=== PATIENT | male | born 1950 | race Caucasian/White ===

== ENCOUNTER → 2019-04-17 10:16 | Outpatient (BNVA) | payer MEDICARE, OTHER, SELFPAY | PROVIDERS: Family Provider Nurse Practitioner; PCP Nurse Practitioner; Visit Provider Internal Medicine Nephrology | DX: Z94.0 Kidney transplant status (principal) | CPT/HCPCS: 80053; 80197; 81003; 82465; 82550; 82570; 83735; 84100; 84156; 84550; 85025 ==

== ENCOUNTER → 2019-05-19 08:08 | Outpatient (BNVA) | payer MEDICARE, OTHER, SELFPAY | PROVIDERS: Family Provider Nurse Practitioner; PCP Nurse Practitioner; Visit Provider Internal Medicine Nephrology | DX: Z94.0 Kidney transplant status (principal); Z79.899 Other long term (current) drug therapy | CPT/HCPCS: 80053; 80197; 81003; 82465; 82550; 82570; 83735; 84100; 84156; 84550; 85025 ==

== ENCOUNTER 2019-05-29 09:00 | Emergency (ER) | payer MEDICARE, OTHER, SELFPAY ==
[2019-05-29 09:03] VITALS: BP 142/81; PULSE 83; RESP 18; TEMP 37.1; O2SAT 97; BMI 30.5
--- NOTE | 2019-05-29 09:13 | XR_ITS ---
WS: [id number] XR chest 1V portable [id number] REASON FOR EXAM: cough/congestion FINDINGS: Comparisons were made to November 20, 2018. The subclavian artery on the right shows a stent similar in position to the previous exam. The heart and mediastinal interfaces were normal. There is granulomas changes well calcified and both perihilar areas. There is chronic low-grade inter stitial changes in the lower lungs. XR/XR chest 1V portable [id number] IMPRESSION: Interstitial changes bilaterally with granulomas Stent is seen in the right subclavian artery.
--- NOTE | 2019-05-29 09:13 | USCV_ITS ---
James Rae Age: 68 Gender: M : 1950 Exam Date: 05/29/2019 09:50 Ordering Phys: Angela Guillermo Technologist: Laila Luis [place] [facility] [place]: in the upper right extremity that has been closed. New onset of pain and swelling. PROCEDURES: 2-D, Doppler and augmentation imaging is submitted of the right upper extremity venous system extending from the right jugular vein through the radial and ulnar veins. The cephalic and basilic vein are also included. FINDINGS: The right jugular vein, brachial vein, radial vein, and ulnar vein appears free from thrombus. There is evidence of thrombus in the right subclavian vein, axillary vein, and basilic vein. Echogenic material was noted in the lumen of the axillary and subclavian veins. The basilic vein was found to be partially compressible with echogenic material in the lumen. No spontaneous flow was noted in the brachial or axillary vein minimal spontaneous flow was noted in the basilic vein CONCLUSIONS Features of thrombosis involving the right subclavian and axillary vein, causing near total occlusion. Features of thrombosis involving the basilic vein, causing subtotal occlusion. Other identifiable veins, as mentioned above, where found to have no evidence of thrombosis. No similar previous studies available for comparison. Dr Prince Messer MD [facility] (Electronically Signed) Final Date: 29 May 2019 13:32 S
--- NOTE | 2019-05-29 09:14 | ED_ITS ---
Documented by User: BRITTANI Fofana 05/29/19 11:12 HPI - Extremity Problem General: Chief complaint: Extremity Problem,Nontraumatic Stated complaint: right arm pain Time Seen by Provider: 05/29/19 09:03 Source: patient Mode of arrival: ambulatory Limitations: no limitations History of Present Illness: HPI Narrative: Patient is a 68-year-old male who presents to ED today with complaints of right arm pain over the past 2 to 3 days. 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 Patient reports pain to the upper arm that seems to radiate into proximally close to his chest. He denies actual chest pains. Denies SOB. He feels like arm is swollen when compared to his left. Has not noticed any coolness or pallor to the extremity. Denies numbness, tingling, loss of sensation. MD Complaint: extremity pain Onset (ago): day(s) Pain Consistency: constant Location: right and upper extremity Quality: aching Radiation: proximal Relieving factors: nothing Exacerbating factors: palpation Associated symptoms: Reports no associated symptoms; Deny chest pain or fever(s) Review of Systems Const: Denies: fever or chills Eyes: Denies: change in vision or blurry vision Card: Denies: chest pain, palpitations, irregular heart rhythm, edema, swelling of feet/ankles, lightheadedness, syncope, pre-syncope, shortness of breath on exertion, shortness of breath when lying down, leg pain with exertion or bluish discoloration of hands/feet Resp: Denies: shortness of breath, productive cough, non-productive cough, pain on inspiration, coughing up blood or chest congestion GI: Denies: abdominal pain, nausea or vomiting Musc: Reports: extremity pain and extremity swelling; Denies: neck pain or back pain Skin/Breast: Denies: changes in skin color Neuro: Denies: numbness in extremities or changes in sensation PFSH ED PFSH: Social History Smoking and tobacco status: never smoked Physical Exam Const: COMMON NORMALS: no apparent distress, average body habitus, oriented x3, no limitations, healthy appearing, alert and well nourished Resp: COMMON NORMALS: normal respiratory effort and clear to auscultation bilaterally AUSCULTATION: clear to auscultation bilaterally Cardio: COMMON NORMALS: regular rate and regular rhythm RATE: regular rate RHYTHM: regular rhythm Extremity: OTHER: Patient with previous scars to his right upper extremity from previous dialysis fistulas. He is significantly tender to his right upper arm. There seems to be some mild swelling when compared to the left. No erythema or warmth noted. Pulses intact distally. Cap refill equal bilaterally. No pallor/coolness to the extremity noted. Neuro: COMMON NORMALS: oriented x3 SENSORIUM/ORIENTATION: Yes alert Skin: COMMON NORMALS: no rashes or lesions noted GENERAL SKIN EXAM: no rashes or lesions noted Course Vital Signs: Vital signs: Vital Signs Temperature 98.7 F 05/29/19 09:03 Pulse Rate 74 05/29/19 11:10 Respiratory Rate 16 05/29/19 11:10 Blood Pressure 132/73 05/29/19 11:10 Pulse Oximetry 98 05/29/19 11:10 MDM - Extremity (Nontraumatic) MDM Narrative: Medical decision making narrative: Reviewed case with Dr. Salomon who recommends placing pt on Eliquis and follow up with PCP. Lab Data: Labs: Lab Results 05/29/19 05/29/19 05/29/19 Range/Units 09:44 09:44 09:44 WBC 10.9 H (4.0-10.0) 10^3/ uL RBC 5.13 (4.1-5.3) 10^6/u L Hgb 15.5 (11.7-16.6) g/dL Hct 46.4 (42.0-52.0) % MCV 90.4 (80-94) fL MCH 30.2 (28.0-34.0) pg MCHC 33.4 (30.0-36.0) g/dL RDW 13.7 (12.1-15.1) % Plt Count 273 (130-400) 10^3/c mm MPV 10.0 (7.4-10.4) fL Neut % (Auto) 70.4 % Lymph % (Auto) 12.0 % Stanton % (Auto) 14.0 % Eos % (Auto) 2.3 % Baso % (Auto) 0.7 % Neut # (Auto) 7.7 (1.8-7.7) 10^3/u L Lymph # (Auto) 1.3 (0.8-4.8) 10^3/u L Stanton # (Auto) 1.5 H (0.2-0.9) 10^3/u L Eos # (Auto) 0.3 (0.0-0.8) 10^3/u L Baso # (Auto) 0.1 (0.0-0.1) 10^3/u L Nucleated RBC % (a uto) 0 % Nucleated RBCs # 0.0 /100WBC PT 14.00 H (10.5-13.3) SECO NDS INR 1.05 (0.8-1.2) APTT 33.9 (23.9-36.7) SECO NDS Sodium 135 L (136-145) mmol/L Potassium 4.7 (3.5-5.1) mmol/L Chloride 99 (98-107) mmol/L Carbon Dioxide 21 L (22-29) mmol/L Anion Gap 19.7 H (5-19) BUN 19 (8-23) mg/dL Creatinine 1.2 (0.7-1.2) mg/dL GFR Calculation 60.6 L (90-130) mL/min Glucose 132 H (65-115) mg/dL Calcium 10.6 H (8.5-10.5) mg/dL Total Bilirubin 0.8 (0.15-1.2) mg/dL AST 12 (0-40) U/L ALT 8 (0-41) U/L Alkaline Phosphata se 91 (40-130) IU/L Troponin T Gen 5 n g/L (0-15) ng/mL Total Protein 8.1 (6.6-8.7) g/dL Albumin 4.0 (3.5-5.2) g/dL Globulin 4.1 (1.3-4.6) g/dL 05/29/19 Range/Units 09:44 WBC (4.0-10.0) 10^3/ uL RBC (4.1-5.3) 10^6/u L Hgb (11.7-16.6) g/dL Hct (42.0-52.0) % MCV (80-94) fL MCH (28.0-34.0) pg MCHC (30.0-36.0) g/dL RDW (12.1-15.1) % Plt Count (130-400) 10^3/c mm MPV (7.4-10.4) fL Neut % (Auto) % Lymph % (Auto) % Stanton % (Auto) % Eos % (Auto) % Baso % (Auto) % Neut # (Auto) (1.8-7.7) 10^3/u L Lymph # (Auto) (0.8-4.8) 10^3/u L Stanton # (Auto) (0.2-0.9) 10^3/u L Eos # (Auto) (0.0-0.8) 10^3/u L Baso # (Auto) (0.0-0.1) 10^3/u L Nucleated RBC % (a uto) % Nucleated RBCs # /100WBC PT (10.5-13.3) SECO NDS INR (0.8-1.2) APTT (23.9-36.7) SECO NDS Sodium (136-145) mmol/L Potassium (3.5-5.1) mmol/L Chloride (98-107) mmol/L Carbon Dioxide (22-29) mmol/L Anion Gap (5-19) BUN (8-23) mg/dL Creatinine (0.7-1.2) mg/dL GFR Calculation (90-130) mL/min Glucose (65-115) mg/dL Calcium (8.5-10.5) mg/dL Total Bilirubin (0.15-1.2) mg/dL AST (0-40) U/L ALT (0-41) U/L Alkaline Phosphata se (40-130) IU/L Troponin T Gen 5 n g/L 14 (0-15) ng/mL Total Protein (6.6-8.7) g/dL Albumin (3.5-5.2) g/dL Globulin (1.3-4.6) g/dL Imaging Data^: CXR: Radiologist's impression: [address] [address] XRay Report Signed Patient: James Rae Unit #: [id number] : 1950 Age/Sex: 68 / M ADM Date: 05/29/19 Loc: ER Room/Bed: Attending Dr: Ordering Provider/Ordering MD: Angela Guillermo Date of Service: 05/29/19 Procedure(s): XR chest 1V portable [id number] Accession Number(s): [id number] Report Number: [id number] WS: [id number] XR chest 1V portable [id number] REASON FOR EXAM: cough/congestion FINDINGS: Comparisons were made to November 20, 2018. The subclavian artery on the right shows a stent similar in position to the previous exam. The heart and mediastinal interfaces were normal. There is granulomas changes well calcified and both perihilar areas. There is chronic low-grade interstitial changes in the lower lungs. XR/XR chest 1V portable [id number] IMPRESSION: Interstitial changes bilaterally with granulomas Stent is seen in the right subclavian artery. Dictated By: Carlos Pelayo DO Signed By: Carlos Pelayo DO Signed Date/Time: 05/29/19934 DD/ 3 US arterial R UE: My impression: no arterial occulsion noted in any vessel US venous R UE: My impression: There is evidence of thrombus in the right subclavian vein, axillary vein, and basilic vein. EKG Data^: EKG 1: EKG interpretation date: 05/29/19 EKG interpretation time: 09:46 Interpretation: Sinus rhythm Rate [address] elevation or depression noted Reviewed and signed by Dr. Salomon Discharge Plan Discharge Patient Disposition: Home, Self-Care Clinical Impression: Deep venous thrombosis of upper extremity Qualifiers: Affected thrombotic vein of extremity: axillary Chronicity: acute Laterality: right Qualified Code(s): I82.A11 - Acute embolism and thrombosis of right axillary vein Acute subclavian vein thrombosis Qualifiers: Laterality: right Qualified Code(s): I82.B11 - Acute embolism and thrombosis of right subclavian vein Condition: Stable Prescriptions: New Eliquis DVT-PE Treat 30D Start 5 mg (74 tabs) tablets,dose pack See Rx Instructions .ROUTE .COMPLEX Qty: 74 RF: 0 hydrocodone-acetaminophen 5-325 mg tablet 1 tab PO Q4H PRN (Reason: pain) Qty: 20 RF: 0 Discharge Orders: Discharge Order (Routine); Ordered 05/29/19 Ordered By: Angela Guillermo Referrals: Juarez Abdi, SENIOR PROPERTY ACCOUNTANT-C [Primary Care Provider] - Activity Restrictions/Additional Instructions: Please follow up with primary care in the next 1 to 2 weeks for reevaluation. You need to return to the emergency department immediately for any development of chest pain, shortness of breath, shortness of breath upon exertion, passing out episodes, or any other concerns you may have. Discharge Date/Time: 05/29/19 11:10 Coding Level of Care Code ED Gis Engineer for Chg Fwd Exam Expanded Problem Focused Documented by User: Jerry Salomon MD 05/29/19 12:07 HPI - Extremity Problem General: Chief complaint: Extremity Problem,Nontraumatic Stated complaint: right arm pain Time Seen by Provider: 05/29/19 09:03 [facility] ED PFSH: Social History Smoking and tobacco status: never smoked Course Vital Signs: Vital signs: Vital Signs Temperature 98.7 F 05/29/19 09:03 Pulse Rate 74 05/29/19 11:10 Respiratory Rate 16 05/29/19 11:10 Blood Pressure 132/73 05/29/19 11:10 Pulse Oximetry 98 05/29/19 11:10 MDM - Extremity (Nontraumatic) MDM Narrative: Medical decision making narrative: Patient presents here with arm pain. Patient was found to have a DVT in his right upper extremity. I reviewed this case with the midlevel and patient has no symptoms of pulmonary embolism. Plan is to place him on anticoagulant and follow-up closely with his PCP and return if worsening. Lab Data: Labs: Lab Results 05/29/19 05/29/19 05/29/19 Range/Units 09:44 09:44 09:44 WBC 10.9 H (4.0-10.0) 10^3/ uL RBC 5.13 (4.1-5.3) 10^6/u L Hgb 15.5 (11.7-16.6) g/dL Hct 46.4 (42.0-52.0) % MCV 90.4 (80-94) fL MCH 30.2 (28.0-34.0) pg MCHC 33.4 (30.0-36.0) g/dL RDW 13.7 (12.1-15.1) % Plt Count 273 (130-400) 10^3/c mm MPV 10.0 (7.4-10.4) fL Neut % (Auto) 70.4 % Lymph % (Auto) 12.0 % Stanton % (Auto) 14.0 % Eos % (Auto) 2.3 % Baso % (Auto) 0.7 % Neut # (Auto) 7.7 (1.8-7.7) 10^3/u L Lymph # (Auto) 1.3 (0.8-4.8) 10^3/u L Stanton # (Auto) 1.5 H (0.2-0.9) 10^3/u L Eos # (Auto) 0.3 (0.0-0.8) 10^3/u L Baso # (Auto) 0.1 (0.0-0.1) 10^3/u L Nucleated RBC % (a uto) 0 % Nucleated RBCs # 0.0 /100WBC PT 14.00 H (10.5-13.3) SECO NDS INR 1.05 (0.8-1.2) APTT 33.9 (23.9-36.7) SECO NDS Sodium 135 L (136-145) mmol/L Potassium 4.7 (3.5-5.1) mmol/L Chloride 99 (98-107) mmol/L Carbon Dioxide 21 L (22-29) mmol/L Anion Gap 19.7 H (5-19) BUN 19 (8-23) mg/dL Creatinine 1.2 (0.7-1.2) mg/dL GFR Calculation 60.6 L (90-130) mL/min Glucose 132 H (65-115) mg/dL Calcium 10.6 H (8.5-10.5) mg/dL Total Bilirubin 0.8 (0.15-1.2) mg/dL AST 12 (0-40) U/L ALT 8 (0-41) U/L Alkaline Phosphata se 91 (40-130) IU/L Troponin T Gen 5 n g/L (0-15) ng/mL Total Protein 8.1 (6.6-8.7) g/dL Albumin 4.0 (3.5-5.2) g/dL Globulin 4.1 (1.3-4.6) g/dL 05/29/19 Range/Units 09:44 WBC (4.0-10.0) 10^3/ uL RBC (4.1-5.3) 10^6/u L Hgb (11.7-16.6) g/dL Hct (42.0-52.0) % MCV (80-94) fL MCH (28.0-34.0) pg MCHC (30.0-36.0) g/dL RDW (12.1-15.1) % Plt Count (130-400) 10^3/c mm MPV (7.4-10.4) fL Neut % (Auto) % Lymph % (Auto) % Stanton % (Auto) % Eos % (Auto) % Baso % (Auto) % Neut # (Auto) (1.8-7.7) 10^3/u L Lymph # (Auto) (0.8-4.8) 10^3/u L Stanton # (Auto) (0.2-0.9) 10^3/u L Eos # (Auto) (0.0-0.8) 10^3/u L Baso # (Auto) (0.0-0.1) 10^3/u L Nucleated RBC % (a uto) % Nucleated RBCs # /100WBC PT (10.5-13.3) SECO NDS INR (0.8-1.2) APTT (23.9-36.7) SECO NDS Sodium (136-145) mmol/L Potassium (3.5-5.1) mmol/L Chloride (98-107) mmol/L Carbon Dioxide (22-29) mmol/L Anion Gap (5-19) BUN (8-23) mg/dL Creatinine (0.7-1.2) mg/dL GFR Calculation (90-130) mL/min Glucose (65-115) mg/dL Calcium (8.5-10.5) mg/dL Total Bilirubin (0.15-1.2) mg/dL AST (0-40) U/L ALT (0-41) U/L Alkaline Phosphata se (40-130) IU/L Troponin T Gen 5 n g/L 14 (0-15) ng/mL Total Protein (6.6-8.7) g/dL Albumin (3.5-5.2) g/dL Globulin (1.3-4.6) g/dL Discharge Plan Discharge Patient Disposition: Home, Self-Care Clinical Impression: Deep venous thrombosis of upper extremity Qualifiers: Affected thrombotic vein of extremity: axillary Chronicity: acute Laterality: right Qualified Code(s): I82.A11 - Acute embolism and thrombosis of right axillary vein Acute subclavian vein thrombosis Qualifiers: Laterality: right Qualified Code(s): I82.B11 - Acute embolism and thrombosis of right subclavian vein Condition: Stable Prescriptions: New EliHövdingis DVT-PE Treat 30D Start 5 mg (74 tabs) tablets,dose pack See Rx Instructions .ROUTE .COMPLEX Qty: 74 RF: 0 hydrocodone-acetaminophen 5-325 mg tablet 1 tab PO Q4H PRN (Reason: pain) Qty: 20 RF: 0 Discharge Orders: Discharge Order (Routine); Ordered 05/29/19 Ordered By: Angela Guillermo Referrals: Juarez Abdi, SENIOR PROPERTY ACCOUNTANT-C [Primary Care Provider] - Activity Restrictions/Additional Instructions: Please follow up with primary care in the next 1 to 2 weeks for reevaluation. You need to return to the emergency department immediately for any development of chest pain, shortness of breath, shortness of breath upon exertion, passing out episodes, or any other concerns you may have. Discharge Date/Time: 05/29/19 11:10 Coding Level of Care Code ED Gis Engineer for Chg Fwd Exam Expanded Problem Focused
--- NOTE | 2019-05-29 09:19 | ECG_ITS ---
Measurements Intervals [place] Rate: 74 P: 34 W[place]: 164 QRS: -33 QRSD: 96 T: 50 QT: 344 QTc: 382 SINUS RHYTHM POSSIBLE ANTERIOR MYOCARDIAL INFARCTION , OF INDETERMINATE AGE [30 ms Q WAVE IN V3 V3/V4, OR R < 0.2 mV IN V4] INFERIOR MYOCARDIAL INFARCTION , PROBABLY OLD [40+ ms Q WAVE AND/OR ST/T AB ABNORMALITY IN II/aVF] Compared to ECG 11/21/2018 06:17:40 Myocardial infarct finding now present Electronically Signed On 05-29-2019 19:10:06 MEDICAL LAB SCIENTIST by Chanelle Phillip M.D. [id number]
--- NOTE | 2019-05-29 09:26 | USCV_ITS ---
James Rae Age: 68 Gender: M : 1950 Exam Date: 05/29/2019 10:15 Ordering Phys: Angela Guillermo Technologist: Laila Luis [place] [facility] [place]: Previous Vascular Surgery: Right BP: / Left BP: / RIGHT LEFT PSV PSV (cm/s) (cm/s) Waveform Waveform Biphasic 86.8 Subclavian Proximal Biphasic 61.0 Axillary Biphasic 68.5 Brachial Proximal Biphasic 112.3 Brachial Mid Biphasic 103.1 Brachial at AC Triphasic 67.5 Radial Proximal Triphasic 62.8 Radial Mid Triphasic 55.7 Radial at Wrist Triphasic 87.1 Ulnar Proximal Triphasic 67.4 Ulnar Mid Triphasic 75.3 Ulnar at Wrist FINDINGS Normal Doppler flow velocities and flow patterns in the right upper extremity arteries which are mentioned above CONCLUSIONS Patent axillary, brachial, ulnar and radial arteries on the right side. No evidence of any significant arterial obstruction, based on the above findings Dr Prince Messer MD [facility] (Electronically Signed) Final Date: 29 May 2019 13:27 S
[2019-05-29 09:53] VITALS: RESP 16; O2SAT 95
[2019-05-29 09:56] LABS: Basophils # 0.1 10^3/uL (0.0-0.1); Basophils % 0.7 %; Eosinophils # 0.3 10^3/uL (0.0-0.8); Eosinophils % 2.3 %; Hematocrit 46.4 % (42.0-52.0); Hemoglobin 15.5 g/dL (11.7-16.6); Lymphocytes # 1.3 10^3/uL (0.8-4.8); Mean Corpuscular HGB Conc 33.4 g/dL (30.0-36.0); Mean Corpuscular Hemoglobin 30.2 pg (28.0-34.0); Mean Corpuscular Volume 90.4 fL (80-94); Monocytes # 1.5 10^3/uL (0.2-0.9); Neutrophils # 7.7 10^3/uL (1.8-7.7); Neutrophils % 70.4 %; Nucleated Red Blood Cells % 0 %; Platelet Count 273 10^3/cmm (130-400); Red Blood Count 5.13 10^6/uL (4.1-5.3); Red Cell Distribution Width 13.7 % (12.1-15.1); White Blood Count 10.9 10^3/uL (4.0-10.0)
[2019-05-29 10:05] LABS: INR 1.05 (0.8-1.2); Partial Thromboplastin Time 33.9 SECONDS (23.9-36.7)
[2019-05-29 10:15] LABS: Alanine Aminotransferase 8 U/L (0-41); Alkaline Phosphatase 91 IU/L (40-130); Anion Gap 19.7 (5-19); Aspartate Amino Transferase 12 U/L (0-40); Blood Urea Nitrogen 19 mg/dL (8-23); Calcium 10.6 mg/dL (8.5-10.5); Carbon Dioxide 21 mmol/L (22-29); Chloride 99 mmol/L (98-107); Globulin 4.1 g/dL (1.3-4.6); Glomerular Filtration Rate 60.6 mL/min (90-130); Glucose 132 mg/dL (65-115); Potassium 4.7 mmol/L (3.5-5.1); Sodium 135 mmol/L (136-145); Total Bilirubin 0.8 mg/dL (0.15-1.2); Total Protein 8.1 g/dL (6.6-8.7)
[2019-05-29 10:16] LABS: Troponin T (5th) Once 14 ng/mL (0-15)
[2019-05-29 10:31] VITALS: BP 113/87; PULSE 73; RESP 15; O2SAT 96
[2019-05-29 11:10] VITALS: BP 132/73; PULSE 74; RESP 16; O2SAT 98
== END 2019-05-29 11:10 | disposition home or self-care (01) ==
PROVIDERS: Emergency Provider Physician Assistant; Family Provider Nurse Practitioner; PCP Nurse Practitioner
DX: I82.A11 Acute embolism and thrombosis of right axillary vein (principal); I82.B11 Acute embolism and thrombosis of right subclavian vein; I82.611 Acute embolism and thrombosis of superficial veins of right upper extremity
CPT/HCPCS: 36415; 71045; 80053; 84484; 85025; 85610; 85730; 93005; 93931; 93971; 99282; 99283

== ENCOUNTER → 2019-06-17 09:17 | Outpatient (BNVA) | payer MEDICARE, OTHER, SELFPAY | PROVIDERS: Family Provider Nurse Practitioner; PCP Nurse Practitioner; Visit Provider Internal Medicine Nephrology | DX: E11.69 Type 2 diabetes mellitus with other specified complication (principal); E66.9 Obesity, unspecified; Z94.0 Kidney transplant status | CPT/HCPCS: 80053; 80197; 81003; 82310; 82465; 82550; 82570; 83036; 83735; 83970; 84100; 84156; 84550; 85025 ==

== ENCOUNTER → 2019-09-18 12:00 | Outpatient (BNVA) | payer MEDICARE, OTHER, SELFPAY | PROVIDERS: Family Provider Nurse Practitioner; PCP Nurse Practitioner; Visit Provider Nurse Practitioner | DX: Z11.59 Encounter for screening for other viral diseases (principal) | CPT/HCPCS: 87635 ==

== ENCOUNTER → 2019-10-02 07:58 | Outpatient (BNVA) | payer MEDICARE, OTHER, SELFPAY | PROVIDERS: Family Provider Nurse Practitioner; PCP Nurse Practitioner; Visit Provider Internal Medicine Nephrology | DX: Z79.899 Other long term (current) drug therapy (principal); Z94.0 Kidney transplant status | CPT/HCPCS: 80053; 80197; 81000; 82465; 82550; 82570; 83735; 84100; 84156; 84550; 85025 ==

== ENCOUNTER → 2019-11-10 15:22 | Outpatient (BNVA) | payer MEDICARE, OTHER, SELFPAY | PROVIDERS: Family Provider Nurse Practitioner; PCP Nurse Practitioner; Visit Provider Nurse Practitioner | DX: R05 Cough (principal) | CPT/HCPCS: 71046; 85025 ==

== ENCOUNTER → 2019-12-17 08:38 | Outpatient (BNVA) | payer MEDICARE, SELFPAY | PROVIDERS: Family Provider Nurse Practitioner; PCP Nurse Practitioner; Visit Provider Internal Medicine Nephrology | DX: Z94.0 Kidney transplant status (principal); Z79.899 Other long term (current) drug therapy | CPT/HCPCS: 80053; 80197; 81000; 82465; 82552; 82570; 83735; 84100; 84156; 84550; 85025 ==

== ENCOUNTER 2020-04-21 13:35 | Emergency (ER) | payer MEDICARE, SELFPAY ==
[2020-04-21 13:41] VITALS: BP 154/75; PULSE 82; RESP 18; TEMP 36.1; O2SAT 97; BMI 32.1
[2020-04-21 13:43] VITALS: BP 143/82; PULSE 88; RESP 16; O2SAT 97
--- NOTE | 2020-04-21 13:50 | XR_ITS ---
WS: [id number] Left knee, 3 views, 04/21/2020 Clinical Data: pain in left knee Comparison: None. Findings: No fractures or dislocations are seen. The joint spaces are normal. The patella is intact. The soft t issues are unremarkable. XR/XR knee LT 3V* [id number] Impression: Negative left knee.
--- NOTE | 2020-04-21 13:54 | ED_ITS ---
HPI - Extremity Problem General: Chief complaint: Extremity Injury, Lower Stated complaint: pain in left knee/leg, from hip down to ankle Time Seen by Provider: 04/21/20 13:50 Source: patient Mode of arrival: ambulatory Limitations: no limitations History of Present Illness: HPI Narrative: 69-year-old male patient presents to the emergency department with 12-hour onset of left knee pain. He reports pain in the left knee previously experienced November 2019; reports grinding and popping sensation in the left knee that occurs from time to time. Took the trash out last night, states felt a grinding and a popping in the left knee with increased pain today. He is able to walk and apply pressure to the knee but experiences pain with walking. MD Complaint: extremity pain Onset (ago): hour(s) (12) Pain Consistency: intermittent Location: left and lower extremity Severity scale (1-10): 4 Quality: aching and dull Radiation: proximal Relieving factors: immobilization Exacerbating factors: weight bearing Associated symptoms: Reports arthralgias; Deny chest pain, fever(s) or rash Review of Systems General: Reports: 10 or more systems reviewed and unremarkable except in HPI and below Const: Denies: fever(s), chills or diaphoresis Eyes: Denies: blurry vision or eye redness ENMT: Denies: throat pain, dental pain or disequilibrium Card: Denies: chest pain, palpitations or irregular heart rhythm Resp: Denies: dyspnea, productive cough, non-productive cough, wheezing or ch est congestion GI: Denies: abdominal pain, nausea, vomiting, diarrhea, constipation or GI cramping : Denies: dysuria Musc: Reports: joint pain (left knee), joint swelling (left knee) and joint stiffness (left knee); Denies: neck pain or back pain Skin/Breast: Denies: rash or pruritus Neuro: Denies: headache(s), weakness in extremities or behavioral changes Psych: Denies: anxiety or depression Daryn/Lymph: Denies: easy bruising PFS ED PFSH: Medical History (Updated 04/21/20 @ 14:35 by ANTHONY Cole) Diabetes mellitus type 2 in obese Hesitancy of micturition Kidney transplant recipient 01/01/2016 Mixed hyperlipidemia Myocardial infarction TIA (transient ischemic attack) Surgical History History of arthroscopy of right shoulder 1992 History of cholecystectomy 2006 History of coronary angioplasty with insertion of stent History of fusion of cervical spine 1978 and 2000 History of kidney transplant 01/01/2016 History of repair of aneurysm of abdominal aorta August 08, 2018 at [facility] 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 Multiple surgeries arms and thigh Family History Other Cancer Chronic kidney disease (CKD) Clotting disorder Dementia Diabetes Hypertension Stroke Social History Smoking and tobacco status: former smoker Second hand smoke exposure: No Smoking risk assessment/counseling performed?: No Alcohol intake: never Desire information about alcohol rehabilitation?: No Counseling given: No Desire information about substance/drug rehabilitation?: No Counseling given: No Caregiver/support person: No Lives independently: Yes Household members: spouse Housing: House Marital status: Number of children: 2 service: No Current occupational status: retired History of recent travel: No Current gender identity: Male Physical Exam Const: COMMON NORMALS: no acute distress, patient oriented x3, healthy appearing and alert GENERAL APPEARANCE: cooperative, comfortable and well hydrated HENMT: COMMON NORMALS: normocephalic, Normal external nose present and moist oral mucous membranes HEAD & SCALP: normocephalic NOSE: Normal external nose present Eye: COMMON NORMALS: Equal, round and reactive pupils present and EOMs intact bilaterally GENERAL EYE: appearance normal, both eyes and all related structures PUPIL: Yes Equal, round and reactive pupils present Neck/C-Spine: COMMON NORMALS: full ROM and no lymphadenopathy GENERAL: Yes normal visual inspection and Yes trachea midline CERVICAL SPINE: Yes cervical ROM normal Lymph: LYMPHATIC: no lymphadenopathy noted Chest: COMMONS NORMALS: normal inspection of the chest Resp: COMMON NORMALS: normal respiratory effort and clear to auscultation bilaterally AUSCULTATION: clear to auscultation bilaterally Cardio: COMMON NORMALS: regular rhythm, S1 normal heart sound present and S2 normal heart sound present RHYTHM: regular rhythm HEART SOUNDS: S1 normal heart sound present and S2 normal heart sound present GI: COMMON NORMALS: Soft to palpation and non-tender INSPECTION: Yes normal to inspection PALPATION: Yes Soft to palpation : COMMON NORMALS: Yes no CVA tenderness BLADDER/KIDNEY EXAM: Yes no CVA tenderness Back/Pelvis: COMMON NORMALS: no CVA tenderness and thoracic and lumbar spine normal to inspection Extremity: COMMON NORMALS: normal to inspection, full ROM, capillary refill normal and no pedal edema GENERAL: Yes normal exam except as noted LEFT LOWER EXTREMITY: Yes knee joint (left anterior superior effusion, small edema, no erythema) Left knee: Yes palpation (pain anterior/superior), Yes ROM (pain with flexion, not with extension) and Yes neurovascular exam (distally intact) and Yes lower leg (negative calf tenderness, no edema) Left lower leg: Yes neurovascular exam (distally intact) Neuro: COMMON NORMALS: patient oriented x3 and no focal motor deficits SENSORIUM/ORIENTATION: Yes alert Psych: COMMON NORMALS: mental status grossly normal, Normal thought process present and cooperative ACTIVITY/MOTOR BEHAVIOR: Yes appropriate eye contact THOUGHT PROCESS: Normal thought process present Skin: COMMON NORMALS: no rashes or lesions noted and turgor normal GENERAL SKIN EXAM: no rashes or lesions noted and turgor normal Course Vital Signs: Vital signs: Vital Signs Temperature 96.9 F L 04/21/20 13:41 Pulse Rate 88 04/21/20 13:43 Respiratory Rate 16 04/21/20 13:43 Blood Pressure 143/82 04/21/20 13:43 Pulse Oximetry 97 04/21/20 13:43 MDM - Extremity (Nontraumatic) Imaging Data^: Other Xray: Radiologist's impression: [address] [address] XRay Report Signed Patient: James Rae Unit #: [id number] : 1950 Age/Sex: 69 / M ADM Date: 04/21/20 Loc: ER Room/Bed: Attending Dr: Ordering Provider/Ordering MD: Shae Saunders Date of Service: 04/21/20 Procedure(s): XR knee LT 3V* [id number] Accession Number(s): [id number] Report Number: [id number] WS: [id number] Left knee, 3 views, 04/21/2020 Clinical Data: pain in left knee Comparison: None. Findings: No fractures or dislocations are seen. The joint spaces are normal. The patella is intact. The soft tissues are unremarkable. XR/XR knee LT 3V* [id number] Impression: Negative left knee. Dictated By: Alexandra Dean MD Signed By: Alexandra Dean MD Signed Date/Time: 04/21/201405 DD/ 05 Discharge Plan Discharge Patient Disposition: Home Clinical Impression: Derangement of knee, left Knee effusion Qualifiers: Laterality: left Qualified Code(s): M25.462 - Effusion, left knee Bursitis of left knee Qualifiers: Knee bursitis location: suprapatellar bursitis Qualified Code(s): M70.52 - Other bursitis of knee, left knee Condition: Stable Prescriptions: New hydrocodone-acetaminophen 5-325 mg tablet 1 tab PO Q4H PRN (Reason: pain) Qty: 10 RF: 0 Discontinued hydrocodone-acetaminophen 5-325 mg tablet 1 tab PO Q4H PRN (Reason: pain) Qty: 20 RF: 0 No Action apixaban 5 mg tablet 5 mg PO BID Qty: 60 RF: 2 Byetta 5 mcg/dose (250 mcg/mL) 1.2 mL pen injector 5 mcg SUBCUT BID Qty: 1.2 RF: 2 Dimetapp Cold-Congestion 6.25-2.5 mg/5 mL liquid 5 ml PO .3 times day Qty: 120 RF: 0 budesonide [Pulmicort] 0.5 mg/2 mL suspension for nebulization 0.5 mg INHALATION BID Qty: 60 RF: 0 magnesium oxide 400 mg magnesium tablet 400 mg PO DAILY RF: 0 prednisone 5 mg tablet 5 mg PO DAILY RF: 0 aspirin [Aspir-81] 81 mg tablet,delayed release (DR/EC) 81 mg PO DAILY RF: 0 allopurinol 300 mg tablet PO RF: 0 triamcinolone acetonide 0.1 % ointment TOPICAL RF: 0 lisinopril 2.5 mg tablet PO RF: 0 (DME) pen needle, diabetic 32 gauge x /32 needle See Rx Instructions ea .ROUTE .MEDSUPPLY Qty: 10 RF: 0 carvedilol 25 mg tablet 25 mg PO BID RF: 0 tamsulosin 0.4 mg capsule 0.4 mg PO DAILY Qty: 30 RF: 2 finasteride 5 mg tablet 5 mg PO DAILY Qty: 30 RF: 2 Discharge Orders: Discharge ED (Routine); Ordered 04/21/20 Ordered By: Shae Saunders Referrals: Juarez Abdi, INTEGR[employer] SOFTWARE DEVELOPER-[employer] [Primary Care Provider] - Discharge Diet: Usual diet Discharge Activity: Limit activity as instructed Patient Instructions: Crutch Instructions (ED), Knee Bursitis (ED), Knee Effusion (ED), Knee Pain (ED), Knee Immobilizer (ED) Activity Restrictions/Additional Instructions: MRI ordered as an outpatient of the left knee, social research assistant will contact you with an appointment time and date, they will also contact you with an ap pointment time and date for orthopedic referral Return to the emergency department if you develop pain behind your left calf, redness swelling with increased pain to the left knee Knee immobilizer will help with pain, wear accordingly, may utilize crutches you have at home Continue with cool compresses to help with pain Avoid twisting of the left knee. 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
--- NOTE | 2020-04-22 09:26 | DCPLANNER ---
Addendum entered by Alice Becker 05/07/20 09:04: Patient has an out patient MRI scheduled. manager infusion called the ortho clinic, spoke with Disha, gave clinic patients information. manager infusion was told that patients information would be printed and reviewed. Clinic will call patient with appointment information. Original Note: manager infusion had message to schedule an out patient MRI and a follow up appointment for patient with ortho after the MRI. manager infusion faxed order to centralized scheduling, after the MRI is scheduled, case worker will call ortho and schedule a follow up appointment.
--- NOTE | 2020-05-07 07:45 | DCPLANNER ---
Patient has an MRI scheduled for Sunday, May 10, 2020 at 8:00. Centralized scheduling will contact patient with appointment information.
--- NOTE | 2020-05-11 11:30 | DCPLANNER ---
Patient had a follow up MRI scheduled for 05.10.20 - patient did attend appointment. Patient had a follow up appointment scheduled for 05.11.20 with ortho - patient did attend appointment.
== END 2020-04-21 14:42 | disposition home or self-care (01) ==
PROVIDERS: Emergency Provider Nurse Practitioner Family; PCP Nurse Practitioner
DX: M23.92 Unspecified internal derangement of left knee (principal); M25.462 Effusion, left knee; M70.52 Other bursitis of knee, left knee; Z79.82 Long term (current) use of aspirin; E11.9 Type 2 diabetes mellitus without complications; Z94.0 Kidney transplant status; E78.2 Mixed hyperlipidemia; I25.2 Old myocardial infarction; Z86.73 Personal history of transient ischemic attack (TIA), and cerebral infarction without residual deficits; Z95.5 Presence of coronary angioplasty implant and graft; Z87.891 Personal history of nicotine dependence
CPT/HCPCS: 12345; 29530; 73562; 99282; 99283

== ENCOUNTER 2020-05-10 07:43 | Outpatient (CLI) | payer MEDICARE, SELFPAY ==
--- NOTE | 2020-05-10 08:00 | MR_ITS ---
WS: [id number] MRI LEFT KNEE HISTORY: M23.92 - Unspecified internal derangement of left knee COMPARISON: 04/21/2020 Anterior cruciate ligament: Intact. Posterior cruciate ligament: Intact. Medial collateral ligament: There is a small amount of fluid along the medial collateral ligament. No tear is identified. Posterior lateral corner structures: Intact. Medial menisci: Horizontal tear in the posterior horn extends to the free edge and probably to the llanos perior articular surface. There is an additional haziness and slightly increased signal in the engineering assistant ior horn. Lateral meniscus: Intact. Normal signal, size and shape. Extensor mechanism: Distal quadriceps tendon and patellar tendons are intact. Fluid and soft tissue: Moderate-sized suprapatellar joint effusion. There is soft tissue edema around the knee. No Blank's cyst. Osseous and articular structures: Patellofemoral compartment: Normal. Medial compartment: Mild narrowing of the medial compartment. Thinning and fissuring of the cartilage . No full-thickness cartilage defects. There is a small amount of marrow edema in the medial tibial p lateau. Lateral compartment: No significant degenerative changes or full-thickness Jose Miguel tear. MR/MR knee LT wo con* [id number] IMPRESSION: 1. Moderate-sized suprapatellar effusion. 2. Horizontal tear posterior horn medial meniscus. 3. Mild internal derangement involving the medial compartment with a small gabriela unt of marrow edema in the tibial plateau, joint space narrowing and fissuring of the cartilage.
== END 2020-05-10 07:44 | disposition home or self-care (01) ==
LOC: RADSHAW 07:44
PROVIDERS: PCP Nurse Practitioner; Visit Provider Nurse Practitioner
DX: M23.92 Unspecified internal derangement of left knee (principal); M25.462 Effusion, left knee; S83.242A Other tear of medial meniscus, current injury, left knee, initial encounter; X58.XXXA Exposure to other specified factors, initial encounter; E11.69 Type 2 diabetes mellitus with other specified complication; E66.9 Obesity, unspecified
CPT/HCPCS: 73721; 80053; 80197; 81000; 82465; 82550; 82570; 83036; 83735; 84100; 84156; 84550; 85025

== ENCOUNTER → 2020-06-01 08:27 | Outpatient (BNVA) | payer MEDICARE, SELFPAY | PROVIDERS: PCP Nurse Practitioner; Visit Provider Orthopaedic Surgery | DX: Z20.822 Contact with and (suspected) exposure to COVID-19 (principal) | CPT/HCPCS: 87635 ==

== ENCOUNTER → 2020-06-02 09:27 | Outpatient (BNVA) | payer MEDICARE, SELFPAY | PROVIDERS: PCP Nurse Practitioner; Visit Provider Nurse Practitioner | DX: Z94.0 Kidney transplant status (principal) | CPT/HCPCS: 83735 ==

== ENCOUNTER 2020-06-03 08:44 | Day surgery (SDC) | payer MEDICARE, SELFPAY ==
[2020-06-02 09:06] VITALS: BMI 32.8
[2020-06-03] VITALS (12 sets, daily range): BP systolic 108–138; BP diastolic 60–85; PULSE 62–77; RESP 12–23; TEMP 36.1–36.4; O2SAT 92–97
[2020-06-03] MEDS: sodium chloride 0.9% 1,000 ML 30 ML IV (10:13)
[2020-06-03 10:25] LABS: Glucose Point of Care 119 mg/dL (70-110)
--- NOTE | 2020-06-03 10:28 | W.PM.OPSUD ---
Surgery/Procedure H&P Update DATE OF PROCEDURE: June 03, 2020 DATE H&P PERFORMED: 05/19/20 PREOP DIAGNOSIS: Knee meniscal tear left the PLANNED PROCEDURE: Operation Date: 06/03/20 10:10 Proposed Procedures p Knee Arthroscopy w/ Medial Meniscectomy 64357 S83.207A(Left) - Pawel Haney MD
--- NOTE | 2020-06-03 10:32 | ANES.PREANE2 ---
Pre-Anesthetic Assessment Pre-Anesthetic Assessment: Height/Weight: Height 1.7 m Weight 95.254 kg Temp Pulse Resp BP Pulse Ox 97.5 F L 77 16 138/85 97 06/03/20 09:43 06/03/20 09:43 06/03/20 09:43 06/03/20 09:43 06/03/20 09:43 Preop Diagnosis: Knee meniscal tear left the Proposed Procedure: Operation Date: 06/03/20 10:10 Proposed Procedures p Knee Arthroscopy w/ Medial Meniscectomy 95250 S83.207A(Left) - Pawel Haney MD Was Beta Emelyn taken within 24 hours: N/A Last intake: Intake Last Liquid Date 06/02/20 Last Liquid Time 23:45 Last Solid Date 06/02/20 Last Solid Time 19:00 Social: Social History: No alcohol and No tobacco Exam: Pre-Anes Outpt Exam: alert, oriented x 3, clear to auscultation bilaterally and regular rate & rhythm Airway: Submandibular: WNL Cervical ROM: WNL MP: 2 Additional comments: Missing several CV/HEM: CV/HEM: CAD and HTN : Comments: S/P Kidney transplant Metabolic: Metabolic: DM and Morbid obesity Comments: Chronic steroids Neuropsych: Neuropsych: TIA Anesthetic Plan: ASA status: 3 Anesthesia: General Risk of > 500 ml blood loss (7ml/kg in children): No Meds/Allergies Current Medications: Current Medications Generic Name Dose Route Start Last Admin Trade Name Freq PRN Reason Stop Dose Admin Sodium Chloride 1,000 mls @ 30 ml s/hr 06/03/20 09:30 06/03/20 10:13 Sodium Chloride 0.9% IV 06/04/20 09:29 30 mls/hr .Q24H DANIEL Administration PFSH Anesthesia PFSH: Medical History Diabetes mellitus type 2 in obese Hesitancy of micturition History of deep vein thrombosis Kidney transplant recipient 01/01/2016 Mixed hyperlipidemia Myocardial infarction TIA (transient ischemic attack) Surgical History History of arthroscopy of right shoulder 1992 History of cholecystectomy 2007 History of coronary angioplasty with insertion of stent History of fusion of cervical spine 1978 and 2000 History of kidney transplant 01/01/2016 History of repair of aneurysm of abdominal aorta August 08, 2018 at [facility] 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 Multiple surgeries arms and thigh Family History Other Cancer Chronic kidney disease (CKD) Clotting disorder Dementia Diabetes Hypertension Stroke Social History Smoking and tobacco status: former smoker Second hand smoke exposure: No Smoking risk assessment/counseling performed?: No Alcohol intake: never Desire information about alcohol rehabilitation?: No Counseling given: No Desire information about substance/drug rehabilitation?: No Counseling given: No Caregiver/support person: No Lives independently: Yes Household members: spouse Housing: House Marital status: Number of children: 2 service: No Current occupational status: retired History of recent travel: No Current gender identity: Male Data Anesthesia Other Labs: Laboratory Results - last 48 hr 06/03/20 10:18 POC Glucose 119 H Cardiac Studies: No Data to Display
[2020-06-03] MEDS: morphine 4 mg/mL SDV 1 mL 8 MG IM (11:11)
--- NOTE | 2020-06-03 11:42 | PM.OP ---
Operative Report Date of procedure: June 03, 2020 Pre-op Diagnosis: Knee meniscal tear left the Post-op diagnosis: same Post-op Diagnosis: Bucket handle left medial meniscal tear Post-op Findings: Same Procedure Done: Left medial meniscectomy Pathology: none sent Surgeon: Pawel Haney Anesthesia: General Estimated blood loss (mL): 0 Complications: None Findings: Bucket-handle tear left medial meniscus involving approximately 50% of the posterior middle third Condition: stable Procedure: The patient was taken the operating room and given a general anesthesia. He was given 2 g of Ancef. He was prepped and draped in the usual fashion. The knee was infiltrated with 30 cc of 0.5% Marcaine with epi and 10 mg of morphine. A timeout was performed. The knee was entered through standard inferior medial and inferolateral portal. Diagnostic portion of arthroscopy performed revealing a large bucket-handle meniscus. Initially using a straight basket the anterior torn meniscus was detached for insertion over the anterior medial meniscus. The [employer] Werewolf probe was then introduced posteriorly detaching the posterior attachment of the torn meniscus. With a grasper the meniscus was removed. The rim was then cleaned up with an incisor shaver and the [employer] Werewolf probe leaving approximately 40 to 50% of the meniscus remaining. The remainder of the arthroscopy was performed and no significant abnormal findings noted. The knee was irrigated with saline. Portals were closed with 3-0 Prolene. Sterile dressings were applied. The patient was extubated taken to recovery in stable condition.
[2020-06-03] MEDS: fentaNYL 50 mcg/mL INJ 2mL IVP ×2 (12:01→12:06)
--- NOTE | 2020-06-03 12:05 | ANE.PACU2 ---
Inpatient post-anesthesia follow up: Airway intact: Yes Vital signs: Temperature 97.2 F Pulse Rate 68 Respiratory Rate 20 Blood Pressure 108/60 Pulse Oximetry 93 Oxygen Delivery Me thod Simple Mask Oxygen Flow Rate 8 Fraction of Inspir ed Oxygen Hydration adequate: Yes Nausea and vomiting: No Pain level: 1 Mental status: Baseline
[2020-06-03] MEDS: HYDROcodone-acetaminophen 5-325 mg Tablet 1 TAB PO (12:59)
== END 2020-06-03 13:20 | disposition home or self-care (01) ==
LOC: OR 08:44
PROVIDERS: PCP Nurse Practitioner; Visit Provider Orthopaedic Surgery
PROC: (CPT 29870; principal; 2020-06-03 10:10)
DX: S83.242A Other tear of medial meniscus, current injury, left knee, initial encounter (principal); X58.XXXA Exposure to other specified factors, initial encounter; I25.10 Atherosclerotic heart disease of native coronary artery without angina pectoris; I10 Essential (primary) hypertension; E11.9 Type 2 diabetes mellitus without complications; E66.01 Morbid (severe) obesity due to excess calories; Z68.32 Body mass index [BMI] 32.0-32.9, adult; Z79.52 Long term (current) use of systemic steroids; Z86.73 Personal history of transient ischemic attack (TIA), and cerebral infarction without residual deficits; Z94.0 Kidney transplant status; E78.5 Hyperlipidemia, unspecified; I25.2 Old myocardial infarction; Z87.891 Personal history of nicotine dependence; Z79.82 Long term (current) use of aspirin
CPT/HCPCS: 29881; 36416; 82962; J0131; J0690; J2270; J2405; J2704; J3010; J3490; J7030

== ENCOUNTER → 2020-06-21 08:26 | Outpatient (BNVA) | payer MEDICARE, SELFPAY | PROVIDERS: PCP Nurse Practitioner; Visit Provider Internal Medicine Nephrology | DX: Z94.0 Kidney transplant status (principal) | CPT/HCPCS: 80053; 80197; 81000; 82465; 82550; 82570; 83735; 84100; 84156; 84550; 85025 ==

== ENCOUNTER 2020-08-13 09:05 | Outpatient (CLI) | payer MEDICARE, SELFPAY ==
--- NOTE | 2020-08-13 09:30 | CT_ITS ---
WS: [id number] CT scan of the abdomen and pelvis without Oral and IV contrast. Additional two-dimensional coronal an d sagittal reconstruction was performed. 08/13/2020 Clinical Data: Z94.0 - Kidney transplant status Comparison: CT abdomen and pelvis, 03/07/2017. DLP: 1141.[address] scans at [facility] use at least one of these dose optimization techniques: automat ed exposure control; mA and/or kV adjustment per patient size (includes targeted exams where dose is matched to clinical indication); or iterative reconstruction. Findings: The lower lungs show no nodules, masses or effusions. There is a small hiatal hernia. The liver, adrenal glands and pancreas are normal. There are clips in the gallbladder fossa from chol ecystectomy. The spleen is in 3 pieces which may reflect old trauma. The creek kidneys are small with cortical cysts on the left. The transplant kidney is in the right i liac fossa and unchanged from prior study. No renal calculi, masses or hydronephrosis is seen. The ab dominal aorta is increased slightly in size to 2.5 cm with calcification in the wall.. No appendicitis or diverticulitis is seen. No abscess, adenopathy, ascites, mass, obstruction or free air is seen. The bladder is unremarkable. The prostate is slightly enlarged with calcification. There are 2 fat-co ntaining inguinal hernias. The bones of the lower thorax, lumbar spine, pelvis, and hips are normal. CT/CT abdomen pelvis wo con [id number] Impression: 1. No change in transplant kidney in right iliac fossa. 2. Atrophic creek kidneys. 3. Cholecystectomy and possible old splenic trauma.
== END 2020-08-13 09:06 | disposition home or self-care (01) ==
LOC: RADWPI 09:09
PROVIDERS: PCP Nurse Practitioner; Visit Provider Nurse Practitioner
DX: Z94.0 Kidney transplant status (principal); R10.9 Unspecified abdominal pain; Z90.49 Acquired absence of other specified parts of digestive tract; N26.1 Atrophy of kidney (terminal); E11.69 Type 2 diabetes mellitus with other specified complication; E66.9 Obesity, unspecified
CPT/HCPCS: 74176; 80053; 83036

== ENCOUNTER → 2020-09-20 08:57 | Outpatient (BNVA) | payer MEDICARE, SELFPAY | PROVIDERS: PCP Nurse Practitioner; Visit Provider Nurse Practitioner | DX: E11.69 Type 2 diabetes mellitus with other specified complication (principal); E66.9 Obesity, unspecified; I21.9 Acute myocardial infarction, unspecified; J30.89 Other allergic rhinitis; Z94.0 Kidney transplant status; M23.92 Unspecified internal derangement of left knee; R39.11 Hesitancy of micturition; Z86.718 Personal history of other venous thrombosis and embolism; J30.2 Other seasonal allergic rhinitis | CPT/HCPCS: 80053; 80197; 81000; 82465; 82550; 82570; 83735; 84100; 84156; 84550; 85025 ==

== ENCOUNTER → 2020-12-08 09:46 | Outpatient (BNVA) | payer MEDICARE, SELFPAY | PROVIDERS: PCP Nurse Practitioner; Visit Provider Internal Medicine Nephrology | DX: Z94.0 Kidney transplant status (principal); E11.69 Type 2 diabetes mellitus with other specified complication; E66.9 Obesity, unspecified | CPT/HCPCS: 80053; 80197; 81000; 82465; 82550; 82570; 83036; 83735; 84100; 84156; 84550; 85025 ==

== ENCOUNTER → 2021-03-10 09:12 | Outpatient (BNVA) | payer MEDICARE, SELFPAY | PROVIDERS: PCP Nurse Practitioner; Visit Provider Internal Medicine Nephrology | DX: Z94.0 Kidney transplant status (principal) | CPT/HCPCS: 80053; 80197; 81000; 82465; 82550; 82570; 83735; 84100; 84156; 84550; 85025 ==

== ENCOUNTER → 2021-06-08 09:18 | Outpatient (BNVA) | payer MEDICARE, SELFPAY | PROVIDERS: PCP Nurse Practitioner; Visit Provider Internal Medicine Nephrology | DX: Z94.0 Kidney transplant status (principal) | CPT/HCPCS: 81000; 82570; 84156 ==

== ENCOUNTER → 2021-06-09 09:19 | Outpatient (BNVA) | payer MEDICARE, SELFPAY | PROVIDERS: PCP Nurse Practitioner; Visit Provider Internal Medicine Nephrology | DX: Z94.0 Kidney transplant status (principal) | CPT/HCPCS: 80053; 80197; 82465; 82550; 83735; 84100; 84550; 85025 ==

== ENCOUNTER → 2021-07-27 09:03 | Outpatient (BNVA) | payer MEDICARE, SELFPAY | PROVIDERS: PCP Nurse Practitioner; Visit Provider Nurse Practitioner | DX: E11.69 Type 2 diabetes mellitus with other specified complication (principal); E66.9 Obesity, unspecified; M47.812 Spondylosis without myelopathy or radiculopathy, cervical region; M79.2 Neuralgia and neuritis, unspecified; Z98.1 Arthrodesis status | CPT/HCPCS: 72040; 85025 ==

== ENCOUNTER 2021-09-13 00:23 | Observation (INO) | payer MEDICARE, SELFPAY ==
[2021-09-13] VITALS (13 sets, daily range): BP systolic 143–181; BP diastolic 67–84; PULSE 66–74; RESP 14–18; TEMP 36.6; O2SAT 95–98; BMI 31.9
--- NOTE | 2021-09-13 02:10 | W.ED.ABDPA2 ---
HPI - Abdominal Pain General: Chief Complaint: Abdominal Pain Stated Complaint: abd pain Time Seen by Provider: 09/13/21 02:10 History of Present Illness: Mr. Dias is a 70-year-old gentleman with complex past medical history including diabetes, hypertension, hyperlipidemia, history of OH, history of TIA, history of renal transplant and history of multiple abdominal surgeries presenting to the emergency department due to abdominal pain. Onset of symptoms was yesterday afternoon and onset was subacute. There were no known specific provoking factors. Since that time he has had worsening abdominal pain and multiple episodes of nausea and vomiting. Last normal bowel movement was yesterday. Overall intensity symptoms is worsening. Intensity is moderate to severe. Aching and cramping. Worse with palpation and movement. No other specific changes in health, exacerbating, or alleviating factors identified. Onset (ago): day(s) Pain Consistency: constant Location: Diffuse Severity: severe Quality: cramping and aching Associated Symptoms: Reports nausea and vomiting Review of Systems General: Reports: 10 or more systems reviewed and unremarkable except in HPI and below GI: Reports: nausea and vomiting [facility] ED PFSH: Medical History (Updated 09/24/21 @ 18:33 by KAREN Orta) Diabetes mellitus type 2 in obese Hesitancy of micturition History of deep vein thrombosis Kidney transplant recipient 01/01/2016 Mixed hyperlipidemia Myocardial infarction Seasonal and perennial allergic rhinitis TIA (transient ischemic attack) Surgical History History of arthroscopy of right shoulder 1992 History of cholecystectomy 2006 History of coronary angioplasty with insertion of stent History of fusion of cervical spine 1978 and 2000 History of kidney transplant 01/01/2016 History of repair of aneurysm of abdominal aorta August 08, 2018 at [facility] 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 Multiple surgeries arms and thigh Family History Other Cancer Chronic kidney disease (CKD) Clotting disorder Dementia Diabetes Hypertension Stroke Social History Smoking and tobacco status: never smoked Second hand smoke exposure: No Smoking risk assessment/counseling performed?: No Alcohol intake: never Desire information about alcohol rehabilitation?: No Counseling given: No Desire information about substance/drug rehabilitation?: No Counseling given: No Caregiver/support person: No Lives independently: Yes Household members: spouse Housing: House Marital status: Number of children: 2 service: No Current occupational status: retired History of recent travel: No Current gender identity: Male Physical Exam Const: COMMON NORMALS: alert GENERAL APPEARANCE: cooperative, well developed, in distress (Due to pain) and ill appearing HENMT: COMMON NORMALS: normocephalic and atraumatic HEAD & SCALP: normocephalic and atraumatic Eye: COMMON NORMALS: conjunctivae normal CONJUNCTIVA: Yes conjunctivae normal SCLERA: sclerae normal Neck/C-Spine: COMMON NORMALS: supple GENERAL: Yes trachea midline Resp: COMMON NORMALS: normal respiratory effort and clear to auscultation bilaterally EFFORT & INSPECTION: Yes able to speak in complete sentences AUSCULTATION: clear to auscultation bilaterally Cardio: COMMON NORMALS: regular rate and regular rhythm RATE: regular rate RHYTHM: regular rhythm GI: COMMON NORMALS: Soft to palpation PALPATION: Yes Soft to palpation, Yes Tenderness to palpation present (GI), Yes Guarding due to palpation present (GI) and No Rigid due to palpation PERCUSSION: normal to percussion Extremity: GENERAL: Yes normal exam except as noted and No edema Neuro: COMMON NORMALS: moves all extremities SENSORIUM/ORIENTATION: Yes alert and No Orientation impaired Psych: COMMON NORMALS: mental status grossly normal and Normal thought process present THOUGHT PROCESS: Normal thought process present Course ED course: - Patient was seen and evaluated by me at bedside - Patient placed on cardiac monitors, IV access obtained - Initial evaluation notable for exam as above. - Labs and xrays personally interpreted by me -Fluids, analgesia, antiemetic given - Labs notable for leukocytosis, normal hemoglobin. Metabolic panel without acute emergent require intervention. Urinalysis without evidence of Andrew tract infection. - Imaging notable for pancreatitis - Upon serial reexamination after treatment the patient was only minimally improved. Patient for multiple doses of analgesia which provided transient relief. Ultimately unable to provide adequate symptom control for discharge - Based on patient history, evaluation, and testing as interpreted the most likely cause of the patient's condition is pancreatitis with intractable symptoms - The results of ED evaluation were discussed with the patient including plan for admission due to requirement for level of care not available if discharged to prevent significant worsening/deterioration. - Admitting service was contacted and Dr Sanchez with the hospitalist serviceagreed to admit the patient - Patient was admitted without further deterioration or significant events. Note: Click bubbles or prepopulated acosta in note writing are used for assistance with data collection and billing and are inherently more limited than narrative and other text portions of this note. Please use narrative for additional clinical history and defer to narrative/free test for any case of contradictory information. If information appears in only free text or click bubble it should be considered present or absent as reported. Please contact note expert medical writer for clarifications of clinical information or contradictory information. MDM is a brief summary, contradictory or erroneous seeming information should be clarified and full note should be reviewed. Vital Signs: Vital signs: Vital Signs Temperature 98.1 F 09/14/21 07:47 Pulse Rate 68 09/14/21 07:47 Respiratory Rate 18 09/14/21 07:47 Blood Pressure 136/65 09/14/21 07:47 Pulse Oximetry 95 09/14/21 07:47 MDM - Abdominal Pain Medical Decision Making 70-year-old gentleman presenting with abdominal symptoms. Found to have likely pancreatitis with intractable symptoms. Admitted for further management. Medical Records I reviewed the patient's medical records. Lab Data I reviewed the patient's lab results. : 09/14/21 05:50 09/14/21 05:50 Labs/Radiology: Radiology Impressions Abdomen/Pelvis CT 09/13/21 02:18 IMPRESSION: 1. Trace fat stranding near the uncinate process of the pancreas. Recommend clinical correlation for any signs mild pancreatitis. 2. Colonic diverticulosis without signs of acute diverticulitis. COMMENTS: Evaluation of solid organs and vascular structures is limited as no IV contrast was administered. Laboratory Results WBC 16.6 10^3/uL (4.0-10.0) H 09/13/21 03:00 RBC 5.19 10^6/uL (4.1-5.3) 09/13/21 03:00 Hgb 15.8 g/dL (11.7-16.6) 09/13/21 03:00 Hct 46.6 % (42.0-52.0) 09/13/21 03:00 MCV 89.8 fl (80-94) 09/13/21 03:00 MCH 30.4 pg (28.0-34.0) 09/13/21 03:00 MCHC 33.9 g/dL (30.0-36.0) 09/13/21 03:00 RDW 14.3 % (12.1-15.1) 09/13/21 03:00 Plt Count 258 10^3/cmm (130-400) 09/13/21 03:00 MPV 10.2 fL (7.4-10.4) 09/13/21 03:00 Neut % (Auto) 80.4 % 09/13/21 03:00 Lymph % (Auto) 8.8 % 09/13/21 03:00 [place] % (Auto) 9.3 % 09/13/21 03:00 Eos % (Auto) 0.1 % 09/13/21 03:00 Baso % (Auto) 0.4 % 09/13/21 03:00 Neut # (Auto) 13.38 10^3/uL (1.8-7.7) H 09/13/21 03:00 Lymph # (Auto) 1.5 10^3/uL (0.8-4.8) 09/13/21 03:00 [place] # (Auto) 1.6 10^3/uL (0.2-0.9) H 09/13/21 03:00 Eos # (Auto) 0.0 10^3/uL (0.0-0.8) 09/13/21 03:00 Baso # (Auto) 0.1 10^3/uL (0.0-0.1) 09/13/21 03:00 Nucleated RBC % (auto) 0 % 09/13/21 03:00 Nucleated RBCs # 0.0 /100WBC 09/13/21 03:00 Sodium 138 mmol/L (136-145) 09/13/21 03:00 Potassium 4.5 mmol/L (3.5-5.1) 09/13/21 03:00 Chloride 101 mmol/L (98-107) 09/13/21 03:00 Carbon Dioxide 24 mmol/L (22-29) 09/13/21 03:00 Anion Gap 17.5 (5-19) 09/13/21 03:00 BUN 17 mg/dL (8-23) 09/13/21 03:00 Creatinine 0.9 mg/dL (0.7-1.2) 09/13/21 03:00 GFR Calculation 83.9 mL/min (90-130) L 09/13/21 03:00 Glucose 159 mg/dL (65-115) H 09/13/21 03:00 Estimat Average Glucose 157 09/13/21 03:00 Hemoglobin A1c 7.1 % (4.0-6.0) H 09/13/21 03:00 Calculated Osmolality 291 mOsm/kg (285-295) 09/13/21 03:00 Lactate 1.4 mmol/L (0.5-2.2) 09/13/21 03:00 Calcium 10.1 mg/dL (8.5-10.5) 09/13/21 03:00 Total Bilirubin 0.5 mg/dL (0.15-1.2) 09/13/21 03:00 AST 9 U/L (0-40) 09/13/21 03:00 ALT 8 U/L (0-41) 09/13/21 03:00 Alkaline Phosphatase 87 IU/L (40-130) 09/13/21 03:00 Total Protein 7.6 g/dL (6.6-8.7) 09/13/21 03:00 Albumin 4.2 g/dL (3.5-5.2) 09/13/21 03:00 Globulin 3.4 g/dL (1.3-4.6) 09/13/21 03:00 Triglycerides 228 mg/dL (0-150) H 09/13/21 03:00 Lipase 38 U/L (13-60) 09/13/21 03:00 Urine Color Michelle (Yellow) 09/13/21 04:00 Urine Appearance Clear (CLEAR) 09/13/21 04:00 Urine pH 5 (5-7) 09/13/21 04:00 Ur Specific [place] 1.020 (1.005-1.030) 09/13/21 04:00 Urine Protein 2+ (Negative) H 09/13/21 04:00 Urine Glucose (UA) Norm (Normal) 09/13/21 04:00 Urine Ketones 1+ (Negative) H 09/13/21 04:00 Urine Blood Neg (Negative) 09/13/21 04:00 Urine Nitrate Negative (Negative) 09/13/21 04:00 Urine Bilirubin 1+ (Negative) H 09/13/21 04:00 Urine Urobilinogen 1 mg/dL (Negative) H 09/13/21 04:00 Ur Leukocyte Esterase Trace (Negative) H 09/13/21 04:00 Urine RBC 0-4 /hpf (0-2) H 09/13/21 04:00 Urine WBC 0-4 /hpf (0-5) H 09/13/21 04:00 Ur Squamous Epith Cells 0-4 /hpf (0-5) H 09/13/21 04:00 Amorphous Sediment Not Reportable 09/13/21 04:00 Urine Bacteria Trace /hpf (NONE) 09/13/21 04:00 Urine Mucus 2+ /hpf 09/13/21 04:00 Discharge Plan Discharge Patient Disposition: Placed in Observation Admit Provider: Chanelle Romero Clinical Impression: Pancreatitis Discharge Diet: Cardiac Discharge Activity: Increase activity as tolerated Coding Level of Care Code ED Order Administrator for Chg Fwd Exam Comprehensive
--- NOTE | 2021-09-13 02:18 | CTR_ITS ---
PROCEDURE INFORMATION: Exam: CT Abdomen And Pelvis Without Contrast Exam date and time: 09/13/2021 2:48 AM Age: 70 years old Clinical indication: Nausea and vomiting; Abdominal pain; Epigastric; Prior surgery; Surgery date: 6+ months; Surgery type: Splenectomy, gb; Additional info: Abd pain, diffuse, n/v TECHNIQUE: Imaging protocol: Computed tomography of the abdomen and pelvis without contrast. Radiation optimization: All CT scans at this facility use at least one of these dose optimization techniques: automated exposure control; mA and/or kV adjustment per patient size (includes targeted exams where dose is matched to clinical indication); or iterative reconstruction. COMPARISON: 1. CT Abdomen/Pelvis Renal [id number] 03/07/2017 8:[address] abdomen pelvis wo con [id number] 08/13/2020 9:25 AM RADIATION DOSE METRICS: Total DLP (mGy-cm): 1281.85 FINDINGS: Lungs: The visualized lung bases demonstrate no focal airspace opacification or pleural effusion. Heart: The visualized heart is within normal limits for size. There is no evidence of pericardial abnormality. Liver: The liver is normal in size and contour. Gallbladder and bile ducts: Gallbladder is surgically absent. Pancreas: Mild fatty atrophy of the pancreas noted. Trace fat stranding near the uncinate process of the pancreas. Spleen: Chronic irregularity of the residual splenic tissue unchanged from prior exam with hilar calcification. Adrenal glands: The adrenals appear normal. Kidneys and ureters: The sitka kidneys are significantly atrophic. Transplant kidney noted in the right pelvis. Stomach and bowel: The stomach appears unremarkable. Duodenal diverticula noted. The small bowel loops are not abnormally dilated. Colonic diverticulosis without signs of acute diverticulitis. Appendix: No signs of appendicitis. Intraperitoneal space: No ascites or significant fluid collection. Vasculature: The infrarenal abdominal aorta measures up to 2.8 cm in diameter, unchanged from prior exam by my measurements. Partially visualized left SFA stent noted. Lymph nodes: There are no enlarged lymph nodes. Urinary bladder: The urinary bladder is not well distended, therefore not well evaluated. Reproductive: The prostate is unremarkable. The seminal vesicles are unremarkable. Bones/joints: Review of the bone windows demonstrates no significant abnormality. Soft tissues: Fat containing right inguinal hernia. Postsurgical changes in the right pelvic wall. Stable 1.9 x 1.2 cm soft tissue nodule again noted along the right anterior abdominal wall (series 2, image 34). CT/CT abdomen pelvis wo con [id number] IMPRESSION: 1. Trace fat stranding near the uncinate process of the pancreas. Recommend clinical correlation for any signs mild pancreatitis. 2. Colonic diverticulosis without signs of acute diverticulitis. COMMENTS: Evaluation of solid organs and vascular structures is limited as no IV contrast was administered.
--- NOTE | 2021-09-13 02:19 | ECG_ITS ---
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 Measurements Intervals [place] Rate: 72 P: 33 DC: 162 QRS: -46 QRSD: 88 T: 61 QT: 352 QTc: 387 Interpretive Statements SINUS RHYTHM POSSIBLE LEFT ATRIAL ENLARGEMENT [-0.1mV P-WAVE IN V1/V2] LEFT AXIS DEVIATION [QRS AXIS < -30] PATTERN CONSISTENT WITH PULMONARY DISEASE POSSIBLE LEFT VENTRICULAR HYPERTROPHY [VOLTAGE CRITERIA PLUS LAE OR QRS WIDENING] Compared to ECG 05/29/2019 09:46:52 Left-axis deviation now present Myocardial infarct finding no longer present Electronically Signed On 09-13-2021 17:55:01 CDT by Ron Banks M.D. [id number]
[2021-09-13] MEDS: ondansetron 2 mg/ML SDV 2 mL 4 MG IVP (02:59)
[2021-09-13] MEDS: morphine 4 mg/mL SDV 1 mL IVP (03:01)
[2021-09-13 03:11] LABS: Basophils # 0.1 10^3/uL (0.0-0.1); Basophils % 0.4 %; Eosinophils % 0.1 %; Hematocrit 46.6 % (42.0-52.0); Hemoglobin 15.8 g/dL (11.7-16.6); Lymphocytes # 1.5 10^3/uL (0.8-4.8); Lymphocytes % 8.8 %; Mean Corpuscular HGB Conc 33.9 g/dL (30.0-36.0); Mean Corpuscular Hemoglobin 30.4 pg (28.0-34.0); Mean Corpuscular Volume 89.8 fl (80-94); Mean Platelet Volume 10.2 fL (7.4-10.4); Monocytes # 1.6 10^3/uL (0.2-0.9); Monocytes % 9.3 %; Neutrophils # 13.38 10^3/uL (1.8-7.7); Neutrophils % 80.4 %; Nucleated Red Blood Cells % 0 %; Platelet Count 258 10^3/cmm (130-400); Red Blood Count 5.19 10^6/uL (4.1-5.3); Red Cell Distribution Width 14.3 % (12.1-15.1); White Blood Count 16.6 10^3/uL (4.0-10.0)
[2021-09-13 03:29] LABS: Lactate (Lactic Acid level) 1.4 mmol/L (0.5-2.2)
[2021-09-13 03:30] LABS: Alanine Aminotransferase 8 U/L (0-41); Albumin Level 4.2 g/dL (3.5-5.2); Alkaline Phosphatase 87 IU/L (40-130); Anion Gap 17.5 (5-19); Aspartate Amino Transferase 9 U/L (0-40); Blood Urea Nitrogen 17 mg/dL (8-23); Calcium 10.1 mg/dL (8.5-10.5); Carbon Dioxide 24 mmol/L (22-29); Chloride 101 mmol/L (98-107); Globulin 3.4 g/dL (1.3-4.6); Glomerular Filtration Rate 83.9 mL/min (90-130); Glucose 159 mg/dL (65-115); Lipase 38 U/L (13-60); Osmolality Calculated 291 mOsm/kg (285-295); Potassium 4.5 mmol/L (3.5-5.1); Sodium 138 mmol/L (136-145); Total Bilirubin 0.5 mg/dL (0.15-1.2); Total Protein 7.6 g/dL (6.6-8.7)
[2021-09-13 04:17] LABS: Add Urine Microscopic? YES; Bilirubin Urine 1+ (Negative); Blood Urine Neg (Negative); Glucose Urine UA Norm (Normal); Ketones Urine 1+ (Negative); Leukocyte Esterase Urine Trace (Negative); Nitrate Urine Negative (Negative); Protein Urine 2+ (Negative); Urine Appearance Clear (CLEAR); Urine Color Amber (Yellow); Urobilinogen Urine 1 mg/dL (Negative); pH Urine 5 (5-7)
[2021-09-13 04:24] LABS: Bacteria Urine TRACE /hpf; Mucus Urine 2+ /hpf; RBC Urine 0-4 /hpf (0-2); Squamous Epithelial Cell Urine 0-4 /hpf (0-5); WBC Urine 0-4 /hpf (0-5)
[2021-09-13 04:25] LABS: Add Urine Culture? No
[2021-09-13] MEDS: HYDROmorphone 1 mg/mL INJ 1 mL 0.5 MG IVP (04:30)
--- NOTE | 2021-09-13 06:37 | PM.HP ---
Providers/Chief Complaint Primary Care Provider: JOVON OrtaC Chief Complaint: abd pain History of Present Illness James Rae is a 70 year old male with past medical history of hypertension diabetes coronary artery disease s/p stent, s/p renal transplant, TIA , multiple abdominal surgeries in the past, came in with chief complaint of nausea vomiting cramping epigastric abdominal pain , started yesterday afternoon, and since then it has progressively worsened. He is denying any chest pain, shortness of breath, fever cough, urinary complaints. Upon arrival in the ER he was worked up for above-mentioned complaint. Pertinent imaging studies: CT abdomen pelvis wo con: Trace fat stranding near the uncinate process of the pancreas. Pertinent labs: WBC 16.6, H&H 15.8 / 46.6 PLT : 258 , serum sodium 138 serum potassium 4.5, BUN and serum creatinine 17 and 0.9, lipase 38, AST ALT alk phos total bilirubin normal Review of Systems General: Reports: 10 or more systems reviewed and unremarkable except in HPI and below Const: Denies: fever(s), chills, body aches, change in appetite or diaphoresis Card: Denies: palpitations, edema, swelling of feet/ankles, dyspnea on exertion, orthopnea or leg pain with exertion Resp: Denies: dyspnea, productive cough, wheezing or pain on inspiration GI: Reports: abdominal pain, nausea and vomiting; Denies: diarrhea or constipation : Denies: flank pain or difficulty urinating Musc: Denies: back pain, extremity pain or extremity swelling Neuro: Denies: headache(s), difficulty walking or confusion Medications/Allergies Home Medications Medication Instructions Recorded Confirmed Last Taken Type triamcinolone acetonide 0.1 % 1 applic TOPICAL PRN 06/03/19 07/27/21 06/01/20 History topical ointment aspirin 81 mg tablet,delayed 81 mg PO DAILY 09/08/19 07/27/21 Unknown History release (Aspir-) magnesium oxide 400 mg PO DAILY 09/08/19 07/27/21 06/02/20 History prednisone 5 mg tablet 5 mg PO DAILY 09/08/19 07/27/21 06/02/20 History tacrolimus 1 mg capsule, 1 mg PO Q12H 06/02/20 07/27/21 06/03/20 History immediate-release (Prograf) hydrocodone 5 mg-acetaminophen 325 1 tab PO Q4H #30 tab 06/03/20 07/27/21 Unknown Rx mg tablet mycophenolate sodium 180 mg 180 mg PO DAILY 06/03/20 07/27/21 06/03/20 History tablet,delayed release hydrocodone 5 mg-acetaminophen 325 1 tab PO Q4H PRN 7 Days #30 tab 06/04/20 07/27/21 Unknown Rx mg tablet (Harrison) pen needle, diabetic 32 gauge x #50 ea 08/05/20 07/27/21 Unknown Rx cetirizine 10 mg tablet (Zyrtec) 10 mg PO DAILY #30 tab 09/20/20 07/27/21 Unknown Rx ketoconazole 2 % shampoo 1 applic TOPICAL .2 x weekly #120 10/14/20 07/27/21 Unknown Rx ml mometasone 0.1 % topical solution 1 applic TOPICAL DAILY #60 ml 10/14/20 07/27/21 Unknown Rx olopatadine 0.2 % eye drops 1 drp OPHTHALMIC (EYE) QAM #2.5 ml 11/08/20 07/27/21 Unknown Rx (Pataday Once Daily Relief) carvedilol 25 mg tablet 25 mg PO BID #180 tab 03/15/21 07/27/21 Unknown Rx finasteride 5 mg tablet 5 mg PO DAILY #90 tab 03/15/21 07/27/21 Unknown Rx lisinopril 2.5 mg tablet 2.5 mg PO DAILY #90 tab 03/15/21 07/27/21 Unknown Rx scopolamine base 1 mg over 3 days 1 patch TRANSDERMAL Q3D PRN #10 ea 03/15/21 07/27/21 Unknown Rx transdermal patch tamsulosin 0.4 mg capsule 0.4 mg PO DAILY #90 cap 03/15/21 07/27/21 Unknown Rx liraglutide 0.6 mg/0.1 mL (18 mg/3 0.6 mg (0.1 mL) SUBCUT Q24H #9 ml 03/19/21 07/27/21 Unknown Rx mL) subcutaneous pen injector (Victoza 3-Jorge) duloxetine 20 mg capsule,delayed 20 mg PO BID #60 cap 07/27/21 07/27/21 Unknown Rx release (Cymbalta) Allergies Allergy/AdvReac Type Severity Reaction Status Date / Time Sulfa (Sulfonamide Allergy Unknown Unknown Verified 10/14/20 09:55 Antibiotics) NSAIDS (Non-Steroidal AdvReac Unknown Unknown Verified 10/14/20 09:55 Anti-Inflamma PFSH Acute PFSH: Medical History Diabetes mellitus type 2 in obese Hesitancy of micturition History of deep vein thrombosis Kidney transplant recipient 01/01/2016 Mixed hyperlipidemia Myocardial infarction Seasonal and perennial allergic rhinitis TIA (transient ischemic attack) Surgical History History of arthroscopy of right shoulder 1992 History of cholecystectomy 2006 History of coronary angioplasty with insertion of stent History of fusion of cervical spine 1978 and 2000 History of kidney transplant 01/01/2016 History of repair of aneurysm of abdominal aorta August 08, 2018 at [facility] 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 Multiple surgeries arms and thigh Family History Other Cancer Chronic kidney disease (CKD) Clotting disorder Dementia Diabetes Hypertension Stroke Social History Smoking and tobacco status: never smoked Second hand smoke exposure: No Smoking risk assessment/counseling performed?: No Alcohol intake: never Desire information about alcohol rehabilitation?: No Counseling given: No Desire information about substance/drug rehabilitation?: No Counseling given: No Caregiver/support person: No Lives independently: Yes Household members: spouse Housing: House Marital status: Number of children: 2 service: No Current occupational status: retired History of recent travel: No Current gender identity: Male Vitals/I&O/Wt Last Vital Signs Temp 97.9 F 09/13/21 00:34 Pulse 74 09/13/21 06:00 Resp 18 09/13/21 06:00 BP 163/84 09/13/21 06:00 Pulse Ox 96 09/13/21 06:00 Weight last 48 hrs Weight 95.254 kg Physical Exam Const: COMMON NORMALS: patient oriented x3 HENMT: COMMON NORMALS: normocephalic, atraumatic, hearing grossly normal bilaterally and external ears normal HEAD & SCALP: normocephalic and atraumatic EXTERNAL EAR: Yes external ears normal Eye: COMMON NORMALS: no scleral icterus GENERAL EYE: appearance normal, both eyes and all related structures Chest: COMMONS NORMALS: normal inspection of the chest and normal palpation of entire chest wall CHEST: Yes Symmetrical chest wall rise Resp: COMMON NORMALS: normal respiratory effort, No retractions, No use of accessory muscles and clear to auscultation bilaterally EFFORT & INSPECTION: Yes symmetric chest movement AUSCULTATION: clear to auscultation bilaterally Cardio: COMMON NORMALS: regular rate, regular rhythm, S1 normal heart sound present, S2 normal heart sound present, No gallops present (Cardio), No murmurs present (Cardio), No rub (Cardio) and Peripheral pulses 2+ throughout RATE: regular rate RHYTHM: regular rhythm HEART SOUNDS: S1 normal heart sound present and S2 normal heart sound present PERIPHERAL PULSES: Peripheral pulses 2+ throughout GI: COMMON NORMALS: Normal to inspection, nondistended, normoactive bowel sounds present, No hepatosplenomegaly present and no masses AUSCULTATION: Yes normoactive bowel sounds PALPATION: Yes Soft to palpation and Yes No hepatosplenomegaly present RECTAL EXAM: Yes deferred OTHER: Epigastric abdominal tenderness present, mild guarding no rigidity no rebound tenderness Extremity: COMMON NORMALS: no clubbing, cyanosis or edema and no pedal edema Neuro: COMMON NORMALS: patient oriented x3 Data : 09/13/21 03:00 09/13/21 03:00 A&P Assessment and plan (1) Pancreatitis: Status: Acute (2) TIA (transient ischemic attack): Status: Acute (3) Kidney transplant recipient: Status: Chronic (4) Diabetes mellitus type 2 in obese: Status: Chronic (5) Leukocytosis: Status: Acute (6) Dehydration: Status: Acute Plan 70 year old male with past medical history of hypertension diabetes coronary artery disease s/p stent, s/p renal transplant, TIA , multiple abdominal surgeries in the past, came in with chief complaint of nausea vomiting cramping epigastric abdominal pain. Assessment: Acute pancreatitis: Epigastric abdominal tenderness,Trace fat stranding near the uncinate process of the pancreas. Patient denies any alcohol use, AST ALT alk phos total bilirubin is normal,Gallbladder is surgically absent, Could be possible secondary to medication use. N.p.o. Pain control IV hydration #History of diabetes: SSI, monitor fingerstick glucose Currently n.p.o. #S/p renal transplant MMF, and tacrolimus has been listed as home medication #History of coronary artery disease s/p stent: Continue aspirin carvedilol #History of TIA #CODE STATUS: Full code #DVT prophylaxis: On Lovenox Attestations Medical Necessity Statement*: Patient is in hospital for management of acute pancreatitis. Time Spent in Patient Care: Greater than 35 minutes (>than 50% of time spent in counselling and/or direct pt care on unit). Coding Level of Care Code Acute Drug Regulatory Affairs Specialist for [facility] Fwd Exam Comprehensive Diagnoses Pancreatitis K85.90 TIA (transient ischemic attack) G45.9 Kidney transplant recipient Z94.0 Diabetes mellitus type 2 in obese E11.69; E66.9 Leukocytosis D72.829 Dehydration E86.0
[2021-09-13] MEDS: sodium chloride 0.9% 1,000 ML 100 ML IV (07:47)
[2021-09-13] MEDS: enoxaparin 40 mg/0.4 mL Syringe SUBCUT (07:48)
[2021-09-13 07:59] LABS: Glucose Point of Care 156 mg/dL (70-110)
[2021-09-13] MEDS: morphine 4 mg/mL SDV 1 mL 2 MG IVP ×4 (08:02→20:26)
[2021-09-13] MEDS: insulin lispro 100 unit/1 mL SUBCUT (08:04)
--- NOTE | 2021-09-13 08:06 | PC.NURSE ---
WHILE AT BEDSIDE PT IS IN NAD. PT DENIES ANY FURTHER NEEDS AT THIS TIME.
--- NOTE | 2021-09-13 08:11 | PC.PHAR ---
pt states he takes care of his own medications-pt states he use to take victoza states he stop taking because he couldnt afford the medication
--- NOTE | 2021-09-13 09:01 | PC.NURSE ---
REPORT GIVEN TO LILLIAN GUPTA ASSUMED CARE.
[2021-09-13] MEDS: carvedilol 25 mg Tablet PO ×2 (09:24→17:22)
[2021-09-13] MEDS: aspirin 81 mg EC Tablet PO (09:24)
--- NOTE | 2021-09-13 11:11 | PM.MISC ---
Miscellaneous Note Note: Solitary kidney Patient is taking prednisone and immunosuppressant for last 6 years No recent use of antibiotics Does not smoke or drink alcohol When I evaluated him in the ER he was standing up He was on 2 L nasal cannula No active complaints No active emesis Abdomen slightly tender midepigastric region Right flank distention, kidney transplant Looks euvolemic EOMI, MIREYA S1, S2 Plan I will keep him on clear liquid diet Continue IV fluids Trend lipase Continue home medications with the clear liquid diet DVT prophylaxis on board If patient does not vomit with p.o. intake can DC fluids I would continue his immunosuppressive regimen Continue antihypertensive currently he is hypertensive which could be secondary to IV fluids, no active complaint of pain
[2021-09-13 11:54] LABS: Triglycerides 228 mg/dL (0-150)
[2021-09-13 12:09] LABS: Estmated Average Glucose 157; Hemoglobin A1C 7.1 % (4.0-6.0)
[2021-09-13 12:12] LABS: Glucose Point of Care 135 mg/dL (70-110)
[2021-09-13 17:03] LABS: Glucose Point of Care 132 mg/dL (70-110)
[2021-09-13] MEDS: bisacodyl 5 mg Tablet 10 MG PO (17:22)
[2021-09-13] MEDS: tacrolimus 0.5 mg Capsule 1 MG PO (17:41)
[2021-09-13] MEDS: tamsulosin 0.4 mg Capsule PO (20:20)
[2021-09-13 20:38] LABS: Glucose Point of Care 109 mg/dL (70-110)
[2021-09-14] VITALS: BP 151/64; PULSE 69; RESP 16; TEMP 36.6; O2SAT 94
[2021-09-14 00:38] VITALS: RESP 18
[2021-09-14] MEDS: morphine 4 mg/mL SDV 1 mL 2 MG IVP ×2 (00:38→05:55)
[2021-09-14 04:00] VITALS: BP 130/69; PULSE 66; RESP 16; TEMP 36.9; O2SAT 95
[2021-09-14] MEDS: enoxaparin 40 mg/0.4 mL Syringe SUBCUT (05:56)
[2021-09-14] MEDS: tacrolimus 0.5 mg Capsule 1 MG PO (05:58)
[2021-09-14 06:09] LABS: Basophils # 0.1 10^3/uL (0.0-0.1); Basophils % 0.4 %; Eosinophils # 0.1 10^3/uL (0.0-0.8); Eosinophils % 0.6 %; Hematocrit 40.9 % (42.0-52.0); Hemoglobin 14.1 g/dL (11.7-16.6); Lymphocytes # 1.8 10^3/uL (0.8-4.8); Lymphocytes % 13.3 %; Mean Corpuscular HGB Conc 34.5 g/dL (30.0-36.0); Mean Corpuscular Hemoglobin 30.4 pg (28.0-34.0); Mean Corpuscular Volume 88.1 fl (80-94); Mean Platelet Volume 10.2 fL (7.4-10.4); Monocytes # 1.7 10^3/uL (0.2-0.9); Monocytes % 12.7 %; Neutrophils # 9.49 10^3/uL (1.8-7.7); Neutrophils % 72.1 %; Nucleated Red Blood Cells % 0 %; Platelet Count 234 10^3/cmm (130-400); Red Blood Count 4.64 10^6/uL (4.1-5.3); Red Cell Distribution Width 14.3 % (12.1-15.1); White Blood Count 13.2 10^3/uL (4.0-10.0)
[2021-09-14 06:10] LABS: Glucose Point of Care 114 mg/dL (70-110)
[2021-09-14 06:30] LABS: Alanine Aminotransferase 8 U/L (0-41); Albumin Level 3.6 g/dL (3.5-5.2); Alkaline Phosphatase 72 IU/L (40-130); Anion Gap 14.8 (5-19); Aspartate Amino Transferase 8 U/L (0-40); Blood Urea Nitrogen 15 mg/dL (8-23); Calcium 9.1 mg/dL (8.5-10.5); Carbon Dioxide 23 mmol/L (22-29); Chloride 98 mmol/L (98-107); Glomerular Filtration Rate 112.1 mL/min (90-130); Glucose 103 mg/dL (65-115); Lipase 21 U/L (13-60); Magnesium 1.4 mg/dL (1.7-2.3); Osmolality Calculated 275 mOsm/kg (285-295); Potassium 3.8 mmol/L (3.5-5.1); Sodium 132 mmol/L (136-145); Total Bilirubin 0.7 mg/dL (0.15-1.2); Total Protein 6.6 g/dL (6.6-8.7)
[2021-09-14 07:47] VITALS: BP 136/65; PULSE 68; RESP 18; TEMP 36.7; O2SAT 95
[2021-09-14] MEDS: aspirin 81 mg EC Tablet PO (08:52)
[2021-09-14] MEDS: carvedilol 25 mg Tablet PO (08:52)
[2021-09-14] MEDS: lisinopril 2.5 mg Tablet PO (08:52)
[2021-09-14] MEDS: predniSONE 5 mg Tablet PO (08:53)
--- NOTE | 2021-09-14 09:12 | P.DS_ITS ---
Discharge Providers Date of Admission: 09/13/21 06:36 Date of Discharge: September 14, 2021 Attending Provider at Admission: Chanelle Romero MD Attending Provider at Discharge: Chanelle Romero MD Primary Care Provider: KAREN Orta Diagnoses at Discharge Discharge Diagnosis (1) Pancreatitis: Status: Acute (2) TIA (transient ischemic attack): Status: Acute (3) Kidney transplant recipient: Status: Chronic Permanent problem details: 01/01/2016 (4) Diabetes mellitus type 2 in obese: Status: Chronic (5) Leukocytosis: Status: Acute (6) Dehydration: Status: Acute Reason for Visit Reason for Visit: abd pain Hospital Course Hospital Course 70-year-old male who is on immunosuppressants after his kidney transplant presented to the hospital with chief, recurrent nausea vomiting. He was domingo gnosed with pancreatitis. He was managed conservatively. Symptoms improved, he did not experience any emesis or diarrhea in the hospital. His leukocytosis trended down. I will discharge him on 09/14 with instructions to follow-up with PCP, continue regular diet, I will give him a 10 tablets for oxycodone and Reglan. He does not have a gallbladder, does not smoke or drink alcohol. Continue steroids on daily basis. Physical Exam Narrative: Pleasant and cooperative Euvolemic Tolerating diet S1, S2 Satting well on room air Nonfocal neuro exam Discharge Data Studies Completed and Pending Completed Studies During Hospitalization Category Date Time Status CT abdomen pelvis wo con [id number] Urgent Cat Scan 09/13/21 02:18 Completed Pending at discharge Category Date Time Status Complete Blood Count w/Auto AM LABS Lab 09/15/21 04:00 Ordered Complete Blood Count w/Auto AM LABS Lab 09/16/21 04:00 Ordered Comprehensive Metabolic Panel AM LABS Lab 09/15/21 04:00 Ordered Comprehensive Metabolic Panel AM LABS Lab 09/16/21 04:00 Ordered Radiology Impressions Abdomen/Pelvis CT 09/13/21 02:18 IMPRESSION: 1. Trace fat stranding near the uncinate process of the pancreas. Recommend clinical correlation for any signs mild pancreatitis. 2. Colonic diverticulosis without signs of acute diverticulitis. COMMENTS: Evaluation of solid organs and vascular structures is limited as no IV contrast was administered. Laboratory Results WBC 13.2 10^3/uL (4.0-10.0) H 09/14/21 05:50 RBC 4.64 10^6/uL (4.1-5.3) 09/14/21 05:50 Hgb 14.1 g/dL (11.7-16.6) 09/14/21 05:50 Hct 40.9 % (42.0-52.0) L 09/14/21 05:50 MCV 88.1 fl (80-94) 09/14/21 05:50 MCH 30.4 pg (28.0-34.0) 09/14/21 05:50 MCHC 34.5 g/dL (30.0-36.0) 09/14/21 05:50 RDW 14.3 % (12.1-15.1) 09/14/21 05:50 Plt Count 234 10^3/cmm (130-400) 09/14/21 05:50 MPV 10.2 fL (7.4-10.4) 09/14/21 05:50 Neut % (Auto) 72.1 % 09/14/21 05:50 Lymph % (Auto) 13.3 % 09/14/21 05:50 [place] % (Auto) 12.7 % 09/14/21 05:50 Eos % (Auto) 0.6 % 09/14/21 05:50 Baso % (Auto) 0.4 % 09/14/21 05:50 Neut # (Auto) 9.49 10^3/uL (1.8-7.7) H 09/14/21 05:50 Lymph # (Auto) 1.8 10^3/uL (0.8-4.8) 09/14/21 05:50 [place] # (Auto) 1.7 10^3/uL (0.2-0.9) H 09/14/21 05:50 Eos # (Auto) 0.1 10^3/uL (0.0-0.8) 09/14/21 05:50 Baso # (Auto) 0.1 10^3/uL (0.0-0.1) 09/14/21 05:50 Nucleated RBC % (auto) 0 % 09/14/21 05:50 Nucleated RBCs # 0.0 /100WBC 09/14/21 05:50 Sodium 132 mmol/L (136-145) L 09/14/21 05:50 Potassium 3.8 mmol/L (3.5-5.1) 09/14/21 05:50 Chloride 98 mmol/L (98-107) 09/14/21 05:50 Carbon Dioxide 23 mmol/L (22-29) 09/14/21 05:50 Anion Gap 14.8 (5-19) 09/14/21 05:50 BUN 15 mg/dL (8-23) 09/14/21 05:50 Creatinine 0.7 mg/dL (0.7-1.2) 09/14/21 05:50 GFR Calculation 112.1 mL/min (90-130) 09/14/21 05:50 Glucose 103 mg/dL (65-115) 09/14/21 05:50 POC Glucose 114 mg/dL (70-110) H 09/14/21 06:06 Estimat Average Glucose 157 09/13/21 03:00 Hemoglobin A1c 7.1 % (4.0-6.0) H 09/13/21 03:00 Calculated Osmolality 275 mOsm/kg (285-295) L 09/14/21 05:50 Lactate 1.4 mmol/L (0.5-2.2) 09/13/21 03:00 Calcium 9.1 mg/dL (8.5-10.5) 09/14/21 05:50 Magnesium 1.4 mg/dL (1.7-2.3) L 09/14/21 05:50 Total Bilirubin 0.7 mg/dL (0.15-1.2) 09/14/21 05:50 AST 8 U/L (0-40) 09/14/21 05:50 ALT 8 U/L (0-41) 09/14/21 05:50 Alkaline Phosphatase 72 IU/L (40-130) 09/14/21 05:50 Total Protein 6.6 g/dL (6.6-8.7) 09/14/21 05:50 Albumin 3.6 g/dL (3.5-5.2) 09/14/21 05:50 Globulin 3.0 g/dL (1.3-4.6) 09/14/21 05:50 Triglycerides 228 mg/dL (0-150) H 09/13/21 03:00 Lipase 21 U/L (13-60) 09/14/21 05:50 Urine Color [place] (Yellow) 09/13/21 04:00 Urine Appearance Clear (CLEAR) 09/13/21 04:00 Urine pH 5 (5-7) 09/13/21 04:00 Ur Specific [place] 1.020 (1.005-1.030) 09/13/21 04:00 Urine Protein 2+ (Negative) H 09/13/21 04:00 Urine Glucose (UA) Norm (Normal) 09/13/21 04:00 Urine Ketones 1+ (Negative) H 09/13/21 04:00 Urine Blood Neg (Negative) 09/13/21 04:00 Urine Nitrate Negative (Negative) 09/13/21 04:00 Urine Bilirubin 1+ (Negative) H 09/13/21 04:00 Urine Urobilinogen 1 mg/dL (Negative) H 09/13/21 04:00 Ur Leukocyte Esterase Trace (Negative) H 09/13/21 04:00 Urine RBC 0-4 /hpf (0-2) H 09/13/21 04:00 Urine WBC 0-4 /hpf (0-5) H 09/13/21 04:00 Ur Squamous Epith Cells 0-4 /hpf (0-5) H 09/13/21 04:00 Amorphous Sediment Not Reportable 09/13/21 04:00 Urine Bacteria Trace /hpf (NONE) 09/13/21 04:00 Urine Mucus 2+ /hpf 09/13/21 04:00 Vitals Last Vital Signs Temp 98.1 F 09/14/21 07:47 Pulse 68 09/14/21 07:47 Resp 18 09/14/21 07:47 BP 136/65 09/14/21 07:47 Pulse Ox 95 09/14/21 07:47 Discharge Plan Discharge Patient Disposition: Home Condition: Stable Prescriptions: New oxycodone 10 mg tablet 10 mg PO Q12H PRN (Reason: pain) Qty: 10 0RF metoclopramide HCl [Reglan] 5 mg tablet 5 mg PO DAILY Qty: 10 0RF Continued ketoconazole 2 % shampoo 1 applic topical .2 x weekly Qty: 120 3RF Rx Instructions: Lather into scalp 2 times weekly. Allow to sit on scalp for 5 minutes before rinsing. magnesium oxide 400 mg magnesium tablet 400 mg PO BID@,21 0RF prednisone 5 mg tablet 5 mg PO DAILY@09 0RF triamcinolone acetonide 0.1 % ointment 1 applic TOPICAL PRN 0RF (DME) pen needle, diabetic 32 gauge x 5/32 needle See Rx Instructions ea .ROUTE .MEDSUPPLY Qty: 50 5RF Rx Instructions: 1 daily carvedilol 25 mg tablet 25 mg PO BID@ 0RF Aspir-81 81 mg Tablet,Delayed Release (Dr/Ec) 81 mg PO QAM 0RF tacrolimus 1 mg capsule 1 mg PO Q12H 0RF Rx Instructions: @09:00,21:00 mycophenolate sodium 180 mg tablet,delayed release (DR/EC) 540 mg PO BID@ 0RF Vitamin D3 125 mcg (5,000 unit) Tablet 5,000 unit PO .TWICE A WEEK 0RF Zyrtec 10 mg tablet 10 mg PO DAILY@09 0RF tamsulosin 0.4 mg capsule 0.4 mg PO DAILY@21 0RF lisinopril 2.5 mg tablet 2.5 mg PO DAILY@ 0RF finasteride 5 mg tablet 5 mg PO DAILY@21 0RF Cymbalta 20 mg capsule,delayed release(DR/EC) 20 mg PO BID@ 0RF Discharge Orders: Discharge Order (Routine); Ordered 09/14/21 Ordered By: Chanelle Romero Referrals: Juarez Abdi FNP-C [Primary Care Provider] - 4-7 days Discharge Diet: Cardiac Discharge Activity: Increase activity as tolerated Patient Instructions: Opioid Safety Discharge Attestations Time Spent in Discharge Care*: less than 30 min Quality Metrics Clinical Quality Measures [ No reported AMI, CVA or VTE this stay] Coding Level of Care Code Acute Chg FW DC note Diagnoses Pancreatitis K85.90 TIA (transient ischemic attack) G45.9 Kidney transplant recipient Z94.0 Diabetes mellitus type 2 in obese E11.69; E66.9 Leukocytosis D72.829 Dehydration E86.0
--- NOTE | 2021-09-14 10:31 | PC.CHAP ---
Pastoral Care Encounter/Spiritual Assessment Type of Contact [] Declined college director visit [] Patient/Family/Request visit [] Outpatient visit [] Follow-up visit [] Physician referral [] Code/Alert [x] Routine visit [] Staff referral [] Actively dying [] Patient sleeping [] Family support [] [] Out of room [] Palliative care [] [] Receiving care in room [] Pre-surgical visit [] Trauma [] Long length of stay [] ICU visit [] Other: Relational/Emotional Strength [x] Patient feels connected with others/family/visitors/staff [] Distress [] Loneliness/isolation [] Abandonment Spirituality of Patient [x]x Person of Nancie [] Attends Mandaen of their Nancie [x] Believes in Prayer [] Reads Bible or Synagogue materials [] There are Spiritual issues to be addressed Shipper Receiver Interventions [x] Prayer [] Active listening [] Non-anxious presence [] Spiritual/emotional support [] Crisis/trauma care [] Spiritual counseling [] Bereavement support [] Provided bereavement packet [] Provided Bible/devotional materials [] Provided toy/stuffed animal, coloring book to patient or family member [] Provided Communion [] Anointing/[place] [] Salvation [x] Completed spiritual assessment [] Other: Impact on Illness or Injury [] Angry [] Fearful [] Anxious [] Often cries [] Exhaustion [] Unable to work [] Unable to attend synagogue [] Unable to walk/stand [] Unable to read [] Unable to drive [] Unable to eat/drink [] Unable to sleep [] Unable to be with family [] Patient intubated [] Other: Summary Time spent with patient
[2021-09-14 11:06] LABS: Glucose Point of Care 133 mg/dL (70-110)
== END 2021-09-14 12:40 | disposition home or self-care (01) ==
LOC: ER 11:17 → MEDSURG 15:13
PROVIDERS: Internal Medicine; Admitting Provider Internal Medicine; Emergency Provider Emergency Medicine; PCP Nurse Practitioner; Visit Provider Internal Medicine
DX: K85.90 Acute pancreatitis without necrosis or infection, unspecified (principal); G45.9 Transient cerebral ischemic attack, unspecified; Z94.0 Kidney transplant status; E11.69 Type 2 diabetes mellitus with other specified complication; E66.9 Obesity, unspecified; Z68.31 Body mass index [BMI] 31.0-31.9, adult; D72.829 Elevated white blood cell count, unspecified; E86.0 Dehydration; I25.10 Atherosclerotic heart disease of native coronary artery without angina pectoris; Z95.5 Presence of coronary angioplasty implant and graft; Z79.82 Long term (current) use of aspirin; E78.2 Mixed hyperlipidemia; I25.2 Old myocardial infarction
CPT/HCPCS: 36415; 36416; 74176; 80053; 81001; 82962; 83036; 83605; 83690; 83735; 84478; 85025; 93005; 96372; 96374; 96375; 96376; 99285; G0378; J1170; J1650; J1815; J2270; J2405; J7030; J7507; J7512

== ENCOUNTER → 2021-10-19 08:24 | Outpatient (BNVA) | payer MEDICARE, SELFPAY | PROVIDERS: PCP Nurse Practitioner; Visit Provider Internal Medicine Nephrology | DX: Z94.0 Kidney transplant status (principal); E11.69 Type 2 diabetes mellitus with other specified complication; E66.9 Obesity, unspecified | CPT/HCPCS: 80197; 81000; 82465; 82550; 82570; 83036; 83735; 84100; 84156; 84550; 85025 ==

== ENCOUNTER → 2021-12-13 08:28 | Outpatient (BNVA) | payer MEDICARE, SELFPAY | PROVIDERS: PCP Nurse Practitioner; Visit Provider Internal Medicine Nephrology | DX: E11.69 Type 2 diabetes mellitus with other specified complication (principal); E66.9 Obesity, unspecified; Z94.0 Kidney transplant status | CPT/HCPCS: 80053; 80061; 80197; 81000; 82043; 82550; 82570; 83036; 83735; 84100; 84156; 84550; 85025 ==

== ENCOUNTER → 2022-06-19 08:57 | Outpatient (BNVA) | payer MEDICARE, SELFPAY | PROVIDERS: PCP Nurse Practitioner; Visit Provider Registered Nurse | DX: Z94.0 Kidney transplant status (principal); E11.69 Type 2 diabetes mellitus with other specified complication; E66.9 Obesity, unspecified | CPT/HCPCS: 80053; 80061; 80197; 81000; 82310; 83036; 83735; 83970; 84550; 85025 ==

== ENCOUNTER → 2022-06-28 11:58 | Outpatient (BNVA) | payer MEDICARE, SELFPAY | PROVIDERS: PCP Nurse Practitioner; Visit Provider Nurse Practitioner | DX: Z94.0 Kidney transplant status (principal); R39.11 Hesitancy of micturition | CPT/HCPCS: 81003; 82570; 84156; 87086 ==

== ENCOUNTER 2022-08-09 10:14 | Emergency (ER) | payer MEDICARE, SELFPAY ==
[2022-08-09 10:55] VITALS: BP 147/82; PULSE 67; TEMP 36.4; O2SAT 97; BMI 33.2
--- NOTE | 2022-08-09 12:12 | USCV_ITS ---
James Rae Age: 71 Gender: M : 1950 Exam Date: 08/09/2022 13:41 Ordering Phys: Roverto Canales DO Technologist: CT Exam Location: [facility] [place]_ Indication: pain PROCEDURES: Venous duplex imaging was performed in only the right upper extremity. The following venous structures were evaluated: internal jugular vein, subclavian vein, axillary vein, and brachial veins. In addition, the radial vein and ulnar vein. FINDINGS: no dvt identified, the jugular and subclavian appear very small and limits evaluation of the particularily the subclavian v CONCLUSIONS No evidence of thrombus of the right upper extremity veins. Small RIJ and right subclavian veins may be due to prior chronic thrombosis. Butch Karimi MD (Electronically Signed) Final Date: 09 Aug 2022 17:01 S
--- NOTE | 2022-08-09 12:15 | ED_ITS ---
HPI - Extremity Problem General: Chief complaint: Extremity Problem,Nontraumatic Stated complaint: right arm pain Time Seen by Provider: 08/09/22 12:09 History of Present Illness: Comes to the ER with complaints of right upper arm pain started on 08/03/2022 patient states he has had a fistula in the past and also blood clots in that arm. Patient states his arm is more swollen more bluish and more painful than normal. MD Complaint: extremity pain and extremity swelling Onset (ago): day(s) (Approximately 7 days ago) Pain Consistency: constant Location: right and upper extremity Quality: aching Radiation: proximal Relieving factors: nothing Exacerbating factors: range of motion and palpation Associated symptoms: Reports no associated symptoms; Deny chest pain, fever(s) or rash Context: history of DVT Review of Systems General: Reports: 10 or more systems reviewed and unremarkable except in HPI and below Const: Denies: fever(s) or chills Eyes: Denies: change in vision or photophobia ENMT: Denies: throat pain or odynophagia Card: Denies: chest pain, palpitations or irregular heart rhythm Resp: Denies: dyspnea, productive cough or non-productive cough GI: Denies: abdominal pain, nausea, vomiting or diarrhea : Denies: flank pain, difficulty urinating or dysuria Musc: Reports: extremity pain; Denies: neck pain or back pain Skin/Breast: Denies: rash or pruritus PFSH ED PFSH: Medical History Diabetes mellitus type 2 in obese Hesitancy of micturition History of deep vein thrombosis Kidney transplant recipient 01/01/2016 Mixed hyperlipidemia Myocardial infarction Seasonal and perennial allergic rhinitis TIA (transient ischemic attack) Surgical History History of arthroscopy of right shoulder 1992 History of cholecystectomy 2006 History of coronary angioplasty with insertion of stent History of fusion of cervical spine 1978 and 2000 History of kidney transplant 01/01/2016 History of repair of aneurysm of abdominal aorta August 08, 2018 at [facility] 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 Multiple surgeries arms and thigh Family History Other Cancer Chronic kidney disease (CKD) Clotting disorder Dementia Diabetes Hypertension Stroke Social History Smoking and tobacco status: never smoked Second hand smoke exposure: No Smoking risk assessment/counseling performed?: No Alcohol intake: never Desire information about alcohol rehabilitation?: No Counseling given: No Substance/Drug Use: never Desire information about substance/drug rehabilitation?: No Counseling given: No Caregiver/support person: No Lives independently: Yes Household members: spouse Housing: House Marital status: Number of children: 2 service: No Current occupational status: retired Do you think of yourself as: Straight/Heterosexual Current gender identity: Male Physical Exam Const: COMMON NORMALS: no acute distress, average body habitus, patient oriented x3, no limitations, healthy appearing, alert and well nourished HENMT: COMMON NORMALS: normocephalic, atraumatic, hearing grossly normal bilaterally, external ears normal, Normal external nose present and moist oral mucous membranes HEAD & SCALP: normocephalic and atraumatic NOSE: Normal external nose present EXTERNAL EAR: Yes external ears normal Eye: COMMON NORMALS: Equal, round and reactive pupils present, EOMs intact bilaterally, conjunctivae normal and no scleral icterus CONJUNCTIVA: Yes conjunctivae normal PUPIL: Yes Equal, round and reactive pupils present Neck/C-Spine: COMMON NORMALS: full ROM, no lymphadenopathy, supple, no meningeal signs, no JVD and Thyroid normal THYROID: Thyroid normal Lymph: LYMPHATIC: no lymphadenopathy noted Chest: COMMONS NORMALS: normal inspection of the chest and normal palpation of entire chest wall Resp: COMMON NORMALS: normal respiratory effort, No retractions, No use of accessory muscles and clear to auscultation bilaterally AUSCULTATION: clear to auscultation bilaterally Cardio: COMMON NORMALS: no JVD, regular rate, regular rhythm, S1 normal heart sound present and S2 normal heart sound present RATE: regular rate RHYTHM: regular rhythm HEART SOUNDS: S1 normal heart sound present and S2 normal heart sound present GI: COMMON NORMALS: Normal to inspection, nondistended, normoactive bowel sounds present, Soft to palpation, non-tender, No hepatosplenomegaly present and no masses PALPATION: Yes Soft to palpation and Yes No hepatosplenomegaly present Extremity: OTHER: Right upper extremity swollen more bluish in color very painful to palpate. Neuro: COMMON NORMALS: patient oriented x3 SENSORIUM/ORIENTATION: Yes alert MENINGEAL SIGNS: Yes no meningeal signs Course Vital Signs: Vital signs: Vital Signs Temperature 97.6 F 08/09/22 10:55 Pulse Rate 67 08/09/22 10:55 Blood Pressure 147/82 08/09/22 10:55 Pulse Oximetry 97 08/09/22 10:55 Oxygen Delivery Me thod Room Air 08/09/22 10:55 MDM - Extremity (Nontraumatic) Medical Decision Making Presents with right arm pain and swelling discoloration. Patient had lab work performed which revealed white count of 13.4 otherwise benign, patient had a right upper extremity ultrasound done which showed no venous thrombosis. Patient be put on pain medicine and antibiotics and referred back to his primary care physician for further testing. Differential Diagnosis Likely cellulitis and deep venous thrombosis of upper extremity; Unlikely herpes zoster, gout, superficial thrombophlebitis, lower extremity edema or deep vein thrombosis of lower extremity Medical Records I reviewed the patient's medical records. Lab Data I reviewed the patient's lab results. 08/09/22 12:08 08/09/22 12:08 Laboratory Results WBC 13.4 10^3/uL (4.0-10.0) H 08/09/22 12:08 RBC 5.56 10^6/uL (4.1-5.3) H 08/09/22 12:08 Hgb 16.3 g/dL (11.7-16.6) 08/09/22 12:08 Hct 50.5 % (42.0-52.0) 08/09/22 12:08 MCV 90.8 fl (80-94) 08/09/22 12:08 MCH 29.3 pg (28.0-34.0) 08/09/22 12:08 MCHC 32.3 g/dL (30.0-36.0) 08/09/22 12:08 RDW 13.6 % (12.1-15.1) 08/09/22 12:08 Plt Count 250 10^3/cmm (130-400) 08/09/22 12:08 MPV 10.2 fL (7.4-10.4) 08/09/22 12:08 Neut % (Auto) 80.4 % 08/09/22 12:08 Lymph % (Auto) 10.2 % 08/09/22 12:08 [place] % (Auto) 7.2 % 08/09/22 12:08 Eos % (Auto) 0.3 % 08/09/22 12:08 Baso % (Auto) 0.6 % 08/09/22 12:08 Neut # (Auto) 10.80 10^3/uL (1.8-7.7) H 08/09/22 12:08 Lymph # (Auto) 1.4 10^3/uL (0.8-4.8) 08/09/22 12:08 [place] # (Auto) 1.0 10^3/uL (0.2-0.9) H 08/09/22 12:08 Eos # (Auto) 0.0 10^3/uL (0.0-0.8) 08/09/22 12:08 Baso # (Auto) 0.1 10^3/uL (0.0-0.1) 08/09/22 12:08 Nucleated RBC % (auto) 0 % 08/09/22 12:08 Nucleated RBCs # 0.0 /100WBC 08/09/22 12:08 PT 12.70 SECONDS (12.1-14.9) 08/09/22 12:08 INR 0.93 (0.8-1.2) 08/09/22 12:08 APTT 29.7 SECONDS (23.9-36.7) 08/09/22 12:08 Sodium 136 mmol/L (136-145) 08/09/22 12:08 Potassium 5.1 mmol/L (3.5-5.1) 08/09/22 12:08 Chloride 101 mmol/L (98-107) 08/09/22 12:08 Carbon Dioxide 20 mmol/L (22-29) L 08/09/22 12:08 Anion Gap 20.1 (5-19) H 08/09/22 12:08 BUN 24 mg/dL (8-23) H 08/09/22 12:08 Creatinine 1.1 mg/dL (0.7-1.2) 08/09/22 12:08 GFR Calculation 66.4 mL/min (90-130) L 08/09/22 12:08 Glucose 139 mg/dL (65-115) H 08/09/22 12:08 Calculated Osmolality 288 mOsm/kg (285-295) 08/09/22 12:08 Calcium 10.4 mg/dL (8.5-10.5) 08/09/22 12:08 Total Bilirubin 0.5 mg/dL (0.15-1.2) 08/09/22 12:08 AST 16 U/L (0-40) 08/09/22 12:08 ALT 17 U/L (0-41) 08/09/22 12:08 Alkaline Phosphatase 70 U/L (40-130) 08/09/22 12:08 Total Protein 7.4 g/dL (6.6-8.7) 08/09/22 12:08 Albumin 4.2 g/dL (3.5-5.2) 08/09/22 12:08 Globulin 3.2 g/dL (1.3-4.6) 08/09/22 12:08 Discharge Plan Discharge Patient Disposition: Home Clinical Impression: Arm pain, right Condition: Stable Prescriptions: New cephalexin 500 mg capsule 500 mg PO Q6H 7 Days Qty: 28 0RF hydrocodone-acetaminophen 5-325 mg tablet 1 tab PO Q8H PRN (Reason: pain) Qty: 10 0RF No Action magnesium oxide 400 mg magnesium tablet 400 mg PO BID@, prednisone 5 mg tablet 5 mg PO DAILY@09 triamcinolone acetonide 0.1 % ointment 1 applic TOPICAL PRN (DME) pen needle, diabetic 32 gauge x 5/32 needle See Rx Instructions .ROUTE .MEDSUPPLY Qty: 50 5RF Rx Instructions: 1 daily carvedilol 25 mg tablet 25 mg PO BID@,21 Qty: 180 1RF finasteride 5 mg tablet 5 mg PO DAILY@21 Qty: 90 1RF lisinopril 2.5 mg tablet 2.5 mg PO DAILY@09 Qty: 90 1RF tamsulosin 0.4 mg capsule 0.4 mg PO DAILY@21 Qty: 90 1RF Farxiga 10 mg tablet 10 mg PO QAM Qty: 30 2RF nystatin 100,000 unit/gram cream 1 applic topical BID Qty: 30 0RF rosuvastatin [Crestor] 5 mg tablet 5 mg PO DAILY Qty: 30 2RF tizanidine [Zanaflex] 4 mg tablet 4 mg PO BID PRN (Reason: muscle spasticity) Qty: 60 0RF aspirin 81 mg Tablet,Delayed Release (Dr/Ec) 81 mg PO QAM tacrolimus 1 mg capsule 1 mg PO Q12H Rx Instructions: @09:00,21:00 mycophenolate sodium 180 mg tablet,delayed release (DR/EC) 540 mg PO BID@, Vitamin D3 125 mcg (5,000 unit) Tablet 5,000 unit PO .TWICE A WEEK Zyrtec 10 mg tablet 10 mg PO DAILY@09 Discharge Orders: Discharge ED (Routine); Ordered 08/09/22 Ordered By: Roverto Canales Referrals: Juarez Abdi, [facility] MACHINE OPERATOR-C [Primary Care Provider] - 1 week Patient Instructions: Arm Pain (ED) Coding Level of Care Code ED Stick Roller for Catalino German
[2022-08-09 12:38] LABS: Basophils # 0.1 10^3/uL (0.0-0.1); Basophils % 0.6 %; Eosinophils % 0.3 %; Hematocrit 50.5 % (42.0-52.0); Hemoglobin 16.3 g/dL (11.7-16.6); Lymphocytes # 1.4 10^3/uL (0.8-4.8); Lymphocytes % 10.2 %; Mean Corpuscular HGB Conc 32.3 g/dL (30.0-36.0); Mean Corpuscular Hemoglobin 29.3 pg (28.0-34.0); Mean Corpuscular Volume 90.8 fl (80-94); Mean Platelet Volume 10.2 fL (7.4-10.4); Monocytes % 7.2 %; Neutrophils % 80.4 %; Nucleated Red Blood Cells % 0 %; Platelet Count 250 10^3/cmm (130-400); Red Blood Count 5.56 10^6/uL (4.1-5.3); Red Cell Distribution Width 13.6 % (12.1-15.1); White Blood Count 13.4 10^3/uL (4.0-10.0)
[2022-08-09 12:50] LABS: INR 0.93 (0.8-1.2)
[2022-08-09 12:51] LABS: Partial Thromboplastin Time 29.7 SECONDS (23.9-36.7)
[2022-08-09 12:56] LABS: Alanine Aminotransferase 17 U/L (0-41); Albumin Level 4.2 g/dL (3.5-5.2); Alkaline Phosphatase 70 U/L (40-130); Anion Gap 20.1 (5-19); Aspartate Amino Transferase 16 U/L (0-40); Blood Urea Nitrogen 24 mg/dL (8-23); Calcium 10.4 mg/dL (8.5-10.5); Carbon Dioxide 20 mmol/L (22-29); Chloride 101 mmol/L (98-107); Globulin 3.2 g/dL (1.3-4.6); Glomerular Filtration Rate 66.4 mL/min (90-130); Glucose 139 mg/dL (65-115); Osmolality Calculated 288 mOsm/kg (285-295); Potassium 5.1 mmol/L (3.5-5.1); Sodium 136 mmol/L (136-145); Total Bilirubin 0.5 mg/dL (0.15-1.2); Total Protein 7.4 g/dL (6.6-8.7)
[2022-08-09] MEDS: HYDROcodone-acetaminophen 5-325 mg Tablet 1 TAB PO (13:18)
== END 2022-08-09 17:33 | disposition home or self-care (01) ==
PROVIDERS: Emergency Provider Emergency Medicine; PCP Nurse Practitioner
DX: M79.621 Pain in right upper arm (principal); Z79.82 Long term (current) use of aspirin; E11.9 Type 2 diabetes mellitus without complications; Z94.0 Kidney transplant status; E78.2 Mixed hyperlipidemia; I25.2 Old myocardial infarction; Z86.73 Personal history of transient ischemic attack (TIA), and cerebral infarction without residual deficits; Z95.5 Presence of coronary angioplasty implant and graft
CPT/HCPCS: 36415; 80053; 85025; 85610; 85730; 93971; 99284

== ENCOUNTER 2022-08-30 13:28 | Outpatient (CLI) | payer MEDICARE, SELFPAY ==
--- NOTE | 2022-08-30 13:45 | USCV_ITS ---
James Rae Age: 71 Gender: M : 1950 Exam Date: 08/30/2022 13:50 Ordering Phys: Juarez Abdi Technologist: Coreen Quinones Exam Location: [facility] [place] Indication: pain and swelling left arm Risk Factors: history of renal dialysis shunt in right forearm. removed 5 years ago Previous Vascular Surgery: dialysis shunt in right forearm removed 5 years ago, Right BP: 137.00 / 71.00 Left BP: / RIGHT LEFT Waveform PSV PSV Waveform (cm/s) (cm/s) Triphasic 55.0 Subclavian Proximal Triphasic 76.2 Subclavian Distal Triphasic 66.8 Axillary Triphasic 86.0 Brachial Proximal Triphasic 118.0 Brachial Mid Triphasic 105.8 Brachial at AC Triphasic 90.1 Radial Proximal Triphasic 77.2 Radial at Wrist Triphasic 71.7 Ulnar Proximal Triphasic 87.1 Ulnar at Wrist 1.0 Radial/Brachial Index 0.61 Ulnar/Brachial Index FINDINGS Flow is seen in palmar arch on both radial and ulnar attachments. Allens test was negative. Moderately slow capillary refill on ulnar side. Rt radial pressure 138 RT ulnar prssure 84 CONCLUSIONS Normal arterial Doppler waveforms and velocities in the right upper extremity Normal resting RBI suggesting no significant arterial obstruction Diminished resting UBI, may suggest ulnar arterial obstruction. However because of the normal Doppler waveforms, need to consider anatomical variations. clinical correlation recommended Dr Prince Messer MD [facility] (Electronically Signed) Final Date: 31 Aug 2022 09:29 S
== END 2022-08-30 13:29 | disposition home or self-care (01) ==
PROVIDERS: PCP Nurse Practitioner; Visit Provider Nurse Practitioner
DX: M79.601 Pain in right arm (principal); M79.89 Other specified soft tissue disorders; I99.8 Other disorder of circulatory system
CPT/HCPCS: 93931

== ENCOUNTER → 2022-09-18 08:22 | Outpatient (BNVA) | payer MEDICARE, SELFPAY | PROVIDERS: PCP Nurse Practitioner; Visit Provider Nurse Practitioner | DX: Z94.0 Kidney transplant status (principal); E11.69 Type 2 diabetes mellitus with other specified complication; E66.9 Obesity, unspecified; Z12.5 Encounter for screening for malignant neoplasm of prostate; I21.9 Acute myocardial infarction, unspecified | CPT/HCPCS: 80053; 81000; 83036; G0103 ==

== ENCOUNTER → 2022-09-19 13:18 | Outpatient (BNVA) | payer MEDICARE, SELFPAY | PROVIDERS: PCP Nurse Practitioner; Visit Provider Thoracic Surgery (Cardiothoracic Vascular Surgery) | DX: M79.601 Pain in right arm (principal) | CPT/HCPCS: 99203 ==

== ENCOUNTER → 2022-10-16 13:11 | Outpatient (BNVA) | payer MEDICARE, SELFPAY | PROVIDERS: PCP Nurse Practitioner; Referring Provider Nurse Practitioner; Visit Provider Specialist | DX: R25.1 Tremor, unspecified (principal); G54.0 Brachial plexus disorders; G43.711 Chronic migraine without aura, intractable, with status migrainosus; Z98.1 Arthrodesis status; Z86.718 Personal history of other venous thrombosis and embolism | CPT/HCPCS: 99204 ==

== ENCOUNTER → 2022-12-05 15:24 | Outpatient (BNVA) | payer MEDICARE, SELFPAY | PROVIDERS: PCP Nurse Practitioner; Visit Provider Specialist | DX: M47.812 Spondylosis without myelopathy or radiculopathy, cervical region (principal); M79.2 Neuralgia and neuritis, unspecified; G54.0 Brachial plexus disorders; R25.1 Tremor, unspecified; G43.711 Chronic migraine without aura, intractable, with status migrainosus | CPT/HCPCS: 99214 ==

== ENCOUNTER → 2022-12-12 07:58 | Outpatient (BNVA) | payer MEDICARE, SELFPAY | PROVIDERS: PCP Nurse Practitioner; Visit Provider Specialist | DX: M47.812 Spondylosis without myelopathy or radiculopathy, cervical region (principal); M79.2 Neuralgia and neuritis, unspecified; G43.711 Chronic migraine without aura, intractable, with status migrainosus; R25.1 Tremor, unspecified | CPT/HCPCS: 95910 ==

== ENCOUNTER → 2022-12-18 09:48 | Outpatient (BNVA) | payer MEDICARE, SELFPAY | PROVIDERS: PCP Nurse Practitioner; Visit Provider Nurse Practitioner | DX: E11.69 Type 2 diabetes mellitus with other specified complication (principal); E66.9 Obesity, unspecified; Z94.0 Kidney transplant status | CPT/HCPCS: 80053; 80061; 80197; 81000; 82310; 82570; 83036; 83721; 83735; 83970; 84156; 84550; 85025 ==

== ENCOUNTER 2022-12-27 10:57 | Observation (INO) | payer MEDICARE, SELFPAY ==
[2022-12-27] VITALS (28 sets, daily range): BP systolic 118–178; BP diastolic 75–86; PULSE 58–78; RESP 15–19; TEMP 36.4–36.6; O2SAT 94–99; BMI 33.2
--- NOTE | 2022-12-27 11:00 | ECG_ITS ---
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 Measurements Intervals [place] Rate: 72 P: 44 GA: 175 QRS: -65 QRSD: 81 T: 32 QT: 367 QTc: 402 Interpretive Statements SINUS RHYTHM LEFT AXIS DEVIATION [QRS AXIS < -30] ANTEROSEPTAL MYOCARDIAL INFARCTION , OF INDETERMINATE AGE [40+ ms Q WAVE IN V1-V4] Compared to ECG 09/13/2021 00:39:05 Myocardial infarct finding now present Electronically Signed On 12-28-2022 7:59:40 CDT by Prince Messer M.D. [id number]
[2022-12-27 11:18] LABS: Basophils # 0.1 10^3/uL (0.0-0.1); Basophils % 0.6 %; Eosinophils # 0.1 10^3/uL (0.0-0.8); Eosinophils % 0.8 %; Lymphocytes # 1.6 10^3/uL (0.8-4.8); Lymphocytes % 12.6 %; Mean Corpuscular HGB Conc 32.5 g/dL (30-55); Mean Corpuscular Hemoglobin 29.8 pg (27-33); Mean Corpuscular Volume 91.6 fl (82-101); Mean Platelet Volume 9.7 fL (7.4-10.4); Monocytes # 1.2 10^3/uL (0.2-0.9); Monocytes % 9.1 %; Neutrophils # 9.77 10^3/uL (1.8-7.7); Neutrophils % 75.8 %; Nucleated Red Blood Cells % 0 %; Platelet Count 229 10^3/cmm (157-399); Red Blood Count 5.57 10^6/uL (3.85-5.65); Red Cell Distribution Width 13.9 % (12.1-15.1); White Blood Count 12.89 10^3/uL (3.29-11.43)
[2022-12-27 11:36] LABS: INR 0.91 (0.8-1.2)
[2022-12-27 11:40] LABS: Alanine Aminotransferase 14 U/L (0-41); Albumin Level 4.2 g/dL (3.5-5.2); Alkaline Phosphatase 88 U/L (40-130); Anion Gap 17.5 (5-19); Aspartate Amino Transferase 12 U/L (0-40); Blood Urea Nitrogen 19 mg/dL (8-23); Carbon Dioxide 25 mmol/L (22-29); Chloride 99 mmol/L (98-107); Globulin 3.2 g/dL (1.3-4.6); Glomerular Filtration Rate 59.9 mL/min (90-130); Glucose 149 mg/dL (65-115); Lipase 24 U/L (13-60); Osmolality Calculated 289 mOsm/kg (285-295); Potassium 4.5 mmol/L (3.5-5.1); Sodium 137 mmol/L (136-145); Total Bilirubin 0.5 mg/dL (0.15-1.2); Total Protein 7.4 g/dL (6.6-8.7)
[2022-12-27 11:41] LABS: Troponin(5th) Baseline 15 ng/L (0-15)
--- NOTE | 2022-12-27 11:51 | ED_ITS ---
HPI - Chest Pain General: Chief Complaint: Chest Pain Stated Complaint: chest pain, phys sent irreg hb Time Seen by Provider: 12/27/22 11:02 History of Present Illness: 72-year-old male presents the emergency department reporting that he has been having exertional chest discomfort along with dyspnea and pain radiating up into his neck jaw and left arm. This is actually been occurring for many weeks if not a few months. He is not very active so he only notices it when he is walk ing to his mailbox and back or when he goes to the store and is walking more than usual. He does have a history of coronary artery disease and has a stent. He believes this was placed in 2011. He does have multiple risk factors including hypertension, reported hyperlipidemia, diabetes, and even had to have a kidney transplant in 2016. He has been on chronic prednisone which is another risk factor. He has not had any provocative testing since 2014 in regards to his coronary artery disease. He was at a nephrology appointment this morning and began having the chest discomfort again. (? From walking into the office). Patient reports he thinks he may be in chronic rejection in regards to his kidney. The kidney is down in his right pelvis and he reports that it has been slightly more swollen and slightly more tender than usual. This has been subacute in nature. He continues to follow with nephrology and [facility]. There is also the concern that his heart rate was irregular when he was at the registered nurse cardiac. During our conversation he has had multiple PVCs. No history of atrial fibrillation and atrial flutter or V. tach. Associated symptoms: Deny fever(s), nausea, syncope or vomiting Review of Systems General: Reports: 10 or more systems reviewed and unremarkable except in HPI and below Const: Denies: fever(s), chills or body aches Eyes: Denies: change in vision ENMT: Denies: throat pain Card: Denies: edema or syncope Resp: Denies: productive cough GI: Denies: nausea, vomiting or diarrhea : Denies: flank pain, dysuria or urinary frequency Musc: Denies: back pain or extremity swelling Skin/Breast: Denies: rash or erythema Neuro: Denies: headache(s), numbness in extremities, weakness in extremities, lack of coordination or difficulty walking [facility] ED PFSH: Medical History Diabetes mellitus type 2 in obese Hesitancy of micturition History of deep vein thrombosis History of [place] (myocardial infarction) Kidney transplant recipient 01/01/2016 Mixed hyperlipidemia Seasonal and perennial allergic rhinitis TIA (transient ischemic attack) Surgical History History of arthroscopy of right shoulder 1992 History of cholecystectomy 2006 History of coronary angioplasty with insertion of stent History of fusion of cervical spine 1978 and 2000 History of kidney transplant 01/01/2016 History of repair of aneurysm of abdominal aorta August 08, 2018 at [facility] 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 Multiple surgeries arms and thigh Family History Other Cancer Chronic kidney disease (CKD) Clotting disorder Dementia Diabetes Hypertension Stroke Social History Smoking and tobacco status: never smoked Second hand smoke exposure: No Smoking risk assessment/counseling performed?: No Alcohol intake: never Desire information about alcohol rehabilitation?: No Counseling given: No Substance/Drug Use: never Desire information about substance/drug rehabilitation?: No Counseling given: No Caregiver/support person: No Lives independently: Yes Household members: spouse Housing: House Marital status: Number of children: 2 service: No Current occupational status: retired Do you think of yourself as: Straight/Heterosexual Current gender identity: Male Physical Exam Const: COMMON NORMALS: no limitations, alert and well nourished EXAM LIMITATIONS: no altered mental status HENMT: COMMON NORMALS: normocephalic, atraumatic and external ears normal HEAD & SCALP: normocephalic and atraumatic EXTERNAL EAR: Yes external ears n ormal MOUTH: no muffled voice Eye: COMMON NORMALS: EOMs intact bilaterally, conjunctivae normal and no scleral icterus CONJUNCTIVA: Yes conjunctivae normal Neck/C-Spine: COMMON NORMALS: no JVD GENERAL: Yes normal visual inspection and Yes trachea midline Chest: OTHER: There is some chest wall tenderness on the left side. Patient states this is not the same sensation he has has when he is exerting himself. Resp: COMMON NORMALS: normal respiratory effort and No use of accessory muscles AUSCULTATION: other (Clear with the exception of a mild expiratory wheeze on the right posterior) Cardio: COMMON NORMALS: no JVD and regular rate RATE: regular rate RHYTHM: abnormal rhythm (Rare PVCs) with ectopic beats GI: COMMON NORMALS: Soft to palpation; negative for non-tender (Mild tenderness in the LUQ. History of splenectomy, has been sore ever sin) PALPATION: Yes Soft to palpation and No Guarding due to palpation present (GI) Extremity: COMMON NORMALS: normal to inspection Neuro: COMMON NORMALS: moves all extremities, no focal motor deficits and no sensory deficits noted SENSORIUM/ORIENTATION: Yes alert SPEECH: speech normal Psych: COMMON NORMALS: mental status grossly normal, Normal thought process present, cooperative, normal affect and speech normal SPEECH: Yes normal speech THOUGHT PROCESS: Normal thought process present Skin: COMMON NORMALS: no rashes or lesions noted, turgor normal and no jaundice GENERAL SKIN EXAM: no rashes or lesions noted and turgor normal Course Vital Signs: Vital signs: Vital Signs Temperature 97.6 F 12/27/22 11:09 Pulse Rate 68 12/27/22 14:15 Respiratory Rate 16 12/27/22 14:15 Blood Pressure 138/75 12/27/22 14:15 Pulse Oximetry 98 12/27/22 14:15 Oxygen Delivery Me thod Room Air 12/27/22 15:18 MDM - Chest Pain Medical Decision Making EKG obtained at 11:05 AM. On my interpretation patient has a sinus rhythm at a rate of 72, probable left axis deviation. QRS duration 81 ms, delayed R wave progression through the precordium suggesting prior anterior infarct, at this time no concerning ST segment elevations or depressions. No hyperacute T waves. No ectopy on this EKG. Patient is presenting with symptoms of angina. It is difficult to say whether this is unstable angina as the patient reports he has been experiencing it for weeks. He does have multiple risk factors. He has not had any provocative testing in a long time. I suspect that regardless of his troponin, he will need a cardiology consultation. Low suspicion for pneumonia, pulmonary embolism, effusion, GERD, peptic ulcer, pleurisy, other causes of chest pain. UPDATE: Baseline trop neg BP elevated- gave 10mg labetalol Giving 1 in nitro paste for intermittent chest pain Discussed with Dr Banks (registered nurse cardiac). He agrees with admission, probably will need angio. Paged Dr Romero for admission. Lab Data 12/27/22 11:08 12/27/22 11:08 Laboratory Results WBC 12.89 10^3/uL (3.29-11.43) H 12/27/22 11:08 RBC 5.57 10^6/uL (3.85-5.65) 12/27/22 11:08 Hgb 16.60 g/dL (11.27-16.99) 12/27/22 11:08 Hct 51.0 % (37-53) 12/27/22 11:08 MCV 91.6 fl (82-101) 12/27/22 11:08 MCH 29.8 pg (27-33) 12/27/22 11:08 MCHC 32.5 g/dL (30-55) 12/27/22 11:08 RDW 13.9 % (12.1-15.1) 12/27/22 11:08 Plt Count 229 10^3/cmm (157-399) 12/27/22 11:08 MPV 9.7 fL (7.4-10.4) 12/27/22 11:08 Neut % (Auto) 75.8 % 12/27/22 11:08 Lymph % (Auto) 12.6 % 12/27/22 11:08 [place] % (Auto) 9.1 % 12/27/22 11:08 Eos % (Auto) 0.8 % 12/27/22 11:08 Baso % (Auto) 0.6 % 12/27/22 11:08 Neut # (Auto) 9.77 10^3/uL (1.8-7.7) H 12/27/22 11:08 Lymph # (Auto) 1.6 10^3/uL (0.8-4.8) 12/27/22 11:08 [place] # (Auto) 1.2 10^3/uL (0.2-0.9) H 12/27/22 11:08 Eos # (Auto) 0.1 10^3/uL (0.0-0.8) 12/27/22 11:08 Baso # (Auto) 0.1 10^3/uL (0.0-0.1) 12/27/22 11:08 Nucleated RBC % (auto) 0 % 12/27/22 11:08 Nucleated RBCs # 0.0 /100WBC 12/27/22 11:08 PT 12.50 SECONDS (12.1-14.9) 12/27/22 11:08 INR 0.91 (0.8-1.2) 12/27/22 11:08 Sodium 137 mmol/L (136-145) 12/27/22 11:08 Potassium 4.5 mmol/L (3.5-5.1) 12/27/22 11:08 Chloride 99 mmol/L (98-107) 12/27/22 11:08 Carbon Dioxide 25 mmol/L (22-29) 12/27/22 11:08 Anion Gap 17.5 (5-19) 12/27/22 11:08 BUN 19 mg/dL (8-23) 12/27/22 11:08 Creatinine 1.2 mg/dL (0.7-1.2) 12/27/22 11:08 GFR Calculation 59.9 mL/min (90-130) L 12/27/22 11:08 Glucose 149 mg/dL (65-115) H 12/27/22 11:08 Calculated Osmolality 289 mOsm/kg (285-295) 12/27/22 11:08 Calcium 10.0 mg/dL (8.5-10.5) 12/27/22 11:08 Total Bilirubin 0.5 mg/dL (0.15-1.2) 12/27/22 11:08 AST 12 U/L (0-40) 12/27/22 11:08 ALT 14 U/L (0-41) 12/27/22 11:08 Alkaline Phosphatase 88 U/L (40-130) 12/27/22 11:08 Troponin T Baseline 15 ng/L (0-15) 12/27/22 11:08 Troponin T 120 Minute 14.8 ng/L (0-15) 12/27/22 13:08 Delta Troponin T -0.2 ABS# (0-10) L 12/27/22 13:08 Total Protein 7.4 g/dL (6.6-8.7) 12/27/22 11:08 Albumin 4.2 g/dL (3.5-5.2) 12/27/22 11:08 Globulin 3.2 g/dL (1.3-4.6) 12/27/22 11:08 Lipase 24 U/L (13-60) 12/27/22 11:08 All radiology interpretation(s) finalized by discharge ED provider radiology interpretation(s): Chest x-ray, 1 view. On my interpretation, patient has mild cardiomegaly. There is a stent present in the subclavicular space on the right side. No focal infiltrates. Probable bibasilar atelectasis. No pneumothorax. No significant effusions. Discharge Plan Discharge Patient Disposition: Placed in Observation Admit Provider: Chanelle Romero Clinical Impression: Angina pectoris, unstable Coding Level of Care Code ED Schedule Maker for Catalino German
--- NOTE | 2022-12-27 11:58 | XR_ITS ---
WS: [id number] XR chest 1V portable [id number] REASON FOR EXAM: Chest pain FINDINGS: Chest appears unchanged compared to previous examination of 11/09/2020. Mild tortuosity of the thoracic aorta. Heart size at the upper limits of normal. Calcified granulomatous disease in both hemithoraces. No acute/subacute pulmonary parenchymal or pleu ral abnormality. Moderate degenerative spondylosis in the mid and lower thoracic spine. Right subclavian vein stent. IMPRESSION: Stable chest with no acute abnormality.
[2022-12-27] MEDS: labetalol 5 mg/mL SDV 20mL 10 MG IVP (12:39)
[2022-12-27] MEDS: aspirin 81 mg Chew Tablet 324 MG PO (12:39)
[2022-12-27] MEDS: nitroglycerin 1 gm/inch oint Pkt 1 INCH TOPICAL (12:39)
--- NOTE | 2022-12-27 13:00 | ECG_ITS ---
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 Measurements Intervals [place] Rate: 68 P: 30 IA: 180 QRS: -35 QRSD: 77 T: 27 QT: 369 QTc: 393 Interpretive Statements SINUS RHYTHM LEFT AXIS DEVIATION [QRS AXIS < -30] ANTEROSEPTAL MYOCARDIAL INFARCTION , OF INDETERMINATE AGE [40+ ms Q WAVE IN V1-V4] Compared to ECG 12/27/2022 11:05:37 No significant changes Electronically Signed On 12-28-2022 8:05:10 CDT by Prince Messer M.D. [id number]
[2022-12-27 14:05] LABS: Troponin 5 2HR 14.8 ng/L (0-15); Troponin 5 2HR Delta -0.2 ABS# (0-10)
--- NOTE | 2022-12-27 14:17 | PM.HP ---
Providers/Chief Complaint Admitting Physician: Chanelle Romero MD Primary Care Provider: SUZANNE OrtaP-C Chief Complaint: chest pain, phys sent irreg hb History of Present Illness James Rae is a 72 year old male with established coronary disease status post stents in the past, lives with his at home, presented from the nephrology clinic when he was told that his heart rate was high and he was experiencing chest discomfort. Patient is stating that he has been experiencing chest discomfort on exertion for quite some time, he describing his chest discomfort as uncomfortable feeling which would last for few minutes to 30 minutes sometimes, he has noticed shortness of breath and diaphoresis with it. No syncope, fever or diarrhea or upper airway illness. In the ER cardiology was consulted for unstable angina evaluation with angiogram. Patient has borderline kidneys take steroids and immunosuppressants, kidney function is normal Review of Systems Const: Denies: fever(s) Eyes: Denies: change in vision ENMT: Denies: throat pain Card: Reports: chest pain Resp: Reports: dyspnea GI: Denies: abdominal pain : Denies: flank pain Musc: Denies: neck pain Skin/Breast: Denies: lesions Neuro: Denies: headache(s) Psych: Reports: anxiety Endo: Denies: polyuria Daryn/Lymph: Denies: easy bruising Medications/Allergies Home Medications Medication Instructions Recorded Confirmed Last Taken Type magnesium oxide 400 mg PO BID@09/08/19 12/27/22 12/27/22 History prednisone 5 mg tablet 5 mg PO DAILY@09/08/19 12/27/22 12/27/22 History pen needle, diabetic 32 gauge x #50 ea 08/05/20 12/27/22 Unknown Rx aspirin 81 mg tablet,delayed 81 mg PO QAM 09/13/21 12/27/22 12/27/22 History release cetirizine 10 mg tablet (Zyrtec) 10 mg PO DAILY@09/13/21 12/27/22 12/27/22 History cholecalciferol (vitamin D3) 125 5,000 unit PO .TWICE A WEEK 09/13/21 12/27/22 Unknown History mcg (5,000 unit) tablet (Vitamin D3) tacrolimus 1 mg capsule, 1 mg PO Q12H 09/13/21 12/27/22 12/27/22 History immediate-release mycophenolate sodium 180 mg 540 mg PO BID@09/19/22 12/27/22 12/27/22 History tablet,delayed release carvedilol 25 mg tablet 25 mg PO BID@ #180 tabs 09/20/22 12/27/22 12/27/22 Rx finasteride 5 mg tablet 5 mg PO DAILY@21 #90 tabs 09/20/22 12/27/22 12/26/22 Rx lisinopril 2.5 mg tablet 2.5 mg PO DAILY@09 #90 tabs 09/20/22 12/27/22 12/27/22 Rx rosuvastatin 5 mg tablet (Crestor) 5 mg PO DAILY #90 tabs 09/20/22 12/27/22 12/27/22 Rx tamsulosin 0.4 mg capsule 0.4 mg PO DAILY@ #90 caps 09/20/22 12/27/22 12/26/22 Rx amitriptyline 25 mg tablet 25 mg PO DAILY #60 tabs 12/05/22 12/27/22 12/26/22 Rx gabapentin 300 mg capsule 300 mg PO Q8H #300 caps 12/05/22 12/27/22 12/27/22 Rx propranolol 20 mg tablet 20 mg PO BID #60 tabs 12/05/22 12/27/22 12/27/22 Rx dapagliflozin propanediol 10 mg 10 mg PO QAM #30 tabs 12/16/22 12/27/22 12/27/22 Rx tablet (Farxiga) glipizide 2.5 mg tablet, extended 2.5 mg PO DAILY #90 tabs 12/16/22 12/27/22 12/27/22 Rx release 24 hr Allergies Allergy/AdvReac Type Severity Reaction Status Date / Time Sulfa (Sulfonamide Allergy Unknown Unknown Verified 12/13/22 11:00 Antibiotics) NSAIDS (Non-Steroidal AdvReac Unknown Unknown Verified 12/13/22 11:00 Anti-Inflamma PFSH Acute PFSH: Medical History Diabetes mellitus type 2 in obese Hesitancy of micturition History of deep vein thrombosis History of [place] (myocardial infarction) Kidney transplant recipient 01/01/2016 Mixed hyperlipidemia Seasonal and perennial allergic rhinitis TIA (transient ischemic attack) Surgical History History of arthroscopy of right shoulder 1992 History of cholecystectomy 2006 History of coronary angioplasty with insertion of stent History of fusion of cervical spine 1978 and 2000 History of kidney transplant 01/01/2016 History of repair of aneurysm of abdominal aorta August 08, 2018 at [facility] 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 Multiple surgeries arms and thigh Family History Other Cancer Chronic kidney disease (CKD) Clotting disorder Dementia Diabetes Hypertension Stroke Social History Smoking and tobacco status: never smoked Second hand smoke exposure: No Smoking risk assessment/counseling performed?: No Alcohol intake: never Desire information about alcohol rehabilitation?: No Counseling given: No Substance/Drug Use: never Desire information about substance/drug rehabilitation?: No Counseling given: No Caregiver/support person: No Lives independently: Yes Household members: spouse Housing: House Marital status: Number of children: 2 service: No Current occupational status: retired Do you think of yourself as: Straight/Heterosexual Current gender identity: Male Vitals/I&O/Wt Last Vital Signs Temp 97.6 F 12/27/22 11:09 Pulse 71 12/27/22 13:15 Resp 15 12/27/22 13:15 BP 127/81 12/27/22 13:15 Pulse Ox 96 12/27/22 13:15 O2 Del Method Room Air 12/27/22 13:15 Weight last 48 hrs Weight 96.162 kg Physical Exam Narrative: Nonfocal neuro exam Pleasant and cooperative Sitting comfortably in his bed Currently on room air S1, S2 Abdomen soft No audible stridor or wheezing Appropriate mood and affect Lower extremity no edema Data 12/28/22 03:51 12/28/22 03:51 A&P Assessment and plan (1) Angina pectoris, unstable: (2) Chronic migraine without aura, intractable, with status migrainosus: (3) Brachial plexopathy: (4) History of MS (myocardial infarction): (5) Diabetes mellitus type 2 in obese: (6) Kidney transplant recipient: Plan Unstable angina Plan for angiogram Cardiology consulted n.p.o. after midnight, cardiac diet until then Continue immunosuppressants for bovine kidney transplant Continue IV fluids Plan for angiogram tomorrow Full code Anticipating discharge within 48 hours Attestations Medical Necessity Statement*: Anticipating discharge within 48 hours Diagnoses Angina pectoris, unstable I20.0 Chronic migraine without aura, intractable, with status migrainosus G43.711 Brachial plexopathy G54.0 History of MS (myocardial infarction) I25.2 Diabetes mellitus type 2 in obese E11.69; E66.9 Kidney transplant recipient Z94.0
--- NOTE | 2022-12-27 15:17 | USCV_ITS ---
James Rae Age: 72 Gender: M : 1950 Exam Date: 12/27/2022 16:04 Ordering Phys: Chanelle Romero MD Technologist: CT Exam Location: [facility] [place] Indication: cp BP: 151 / 82 HR: 61 Rhythm: Sinus Technical Quality: Adequate MEASUREMENTS (Male / Female) Normal Values 2D ECHO LVOT Diameter 2.2 cm LV Ejection Fraction MOD 2C 64.1 % LV Ejection Fraction 2C AL 64.1 % LA Diameter 4.5 cm Aorta at Sinotubular Diameter 2.3 cm M-MODE Aortic Annulus Diameter 3.3 cm LA Ao Ratio MM 1.4 MV E Point Septal Separation 0.9 cm DOPPLER AV Peak Velocity 157.0 cm/s LVOT Peak Velocity 121.0 cm/s AV Area Cont Eq vti 3.3 cm squared AV Area Cont Eq pk 2.8 cm squared MV Area PHT 3.1 cm squared Mitral E to A Ratio 1.0 MV E' Velocity 48.0 cm/s Mitral E to MV E' Ratio 10.3 Mitral E to LV E' Lateral Ratio 10.2 Mitral E to LV E' Septal Ratio 10.4 TR Peak Velocity 113.7 cm/s TR Peak Gradient 5.2 mmHg TV Peak E Velocity 73.0 cm/s Right Atrial Pressure 3.0 mmHg Pulmonary Artery Systolic Pressu 8.2 mmHg PV Peak Velocity 98.0 cm/s FINDINGS Left Ventricle Left ventricle is normal in size. LV systolic is normal with EF of 60-65%. No regional wall motion abnormalities are seen. Right Ventricle Normal in size and function Right Atrium Normal in size Left Atrium Dilated Mitral Valve Structurally normal mitral valve. Trace mitral regurgitation Aortic Valve Structurally normal aortic valve. No significant stenosis or regurgitation. Tricuspid Valve Trace tricuspid regurgitation. Insufficient TR jet to calculate RVSP Pulmonic Valve Not well visualized Pericardium Normal Aorta Normal in size IVC Appears to be normal CONCLUSIONS LV systolic function is nromal with EF of 60-65% Left atrial dilation Trace mitral regurgitation Trace tricuspid regurgitation No comparison studies are available. Ron Banks MD (Electronically Signed) Final Date: 28 December 2022 17:01 S
[2022-12-27] MEDS: acetaminophen 500 mg Tablet PO (16:43)
[2022-12-27] MEDS: gabapentin 300 mg Capsule PO ×2 (16:44→23:43)
[2022-12-27] MEDS: heparin 5,000 unit/mL INJ 1 mL 5000 UNIT SUBCUT (16:44)
[2022-12-27 17:03] LABS: Glucose Point of Care 132 mg/dL (70-110)
--- NOTE | 2022-12-27 17:06 | P.CONIM_ITS ---
Providers/Reason For Consult Consulting Physician/Specialty*: Ron Banks MD/ Cardiology Reason for Consult*: Unstable angina Requesting Physician: Dr Whipple Attending Physician: Chanelle Romero MD Primary Care Provider: KAREN Orta History of Present Illness History of Present Illness James Rae is a 72 year old male with past medical history of renal transplant, CAD with prior stent who has presented with worsening anginal symptoms for the last 6 weeks. Now he can not do any significant exertion without starting having worsening chest pains shortness of breath. Chest discomfort radiates to the jaw and arms. He feels his symptoms are similar to those he had prior to his LA last time. Troponin has not trended up significantly. EKG shows normal sinus rhythm with non-specific ST-T wave changes. Review of Systems Const: Denies: fever(s) Eyes: Denies: change in vision ENMT: Denies: throat pain Card: Reports: chest pain Resp: Reports: dyspnea GI: Denies: abdominal pain : Denies: flank pain Musc: Denies: neck pain Skin/Breast: Denies: lesions Neuro: Denies: headache(s) Psych: Reports: anxiety Endo: Denies: polyuria Daryn/Lymph: Denies: easy bruising Medications/Allergies Home Medications Medication Instructions Recorded Confirmed Last Taken Type magnesium oxide 400 mg PO BID@09/08/19 12/27/22 12/27/22 History prednisone 5 mg tablet 5 mg PO DAILY@09/08/19 12/27/22 12/27/22 History pen needle, diabetic 32 gauge x #50 ea 08/05/20 12/27/22 Unknown Rx aspirin 81 mg tablet,delayed 81 mg PO QAM 09/13/21 12/27/22 12/27/22 History release cetirizine 10 mg tablet (Zyrtec) 10 mg PO DAILY@09/13/21 12/27/22 12/27/22 History cholecalciferol (vitamin D3) 125 5,000 unit PO .TWICE A WEEK 09/13/21 12/27/22 Unknown History mcg (5,000 unit) tablet (Vitamin D3) tacrolimus 1 mg capsule, 1 mg PO Q12H 09/13/21 12/27/22 12/27/22 History immediate-release mycophenolate sodium 180 mg 540 mg PO BID@09/19/22 12/27/22 12/27/22 History tablet,delayed release carvedilol 25 mg tablet 25 mg PO BID@ #180 tabs 09/20/22 12/27/22 12/27/22 Rx finasteride 5 mg tablet 5 mg PO DAILY@ #90 tabs 09/20/22 12/27/22 12/26/22 Rx lisinopril 2.5 mg tablet 2.5 mg PO DAILY@ #90 tabs 09/20/22 12/27/22 12/27/22 Rx rosuvastatin 5 mg tablet (Crestor) 5 mg PO DAILY #90 tabs 09/20/22 12/27/22 12/27/22 Rx tamsulosin 0.4 mg capsule 0.4 mg PO DAILY@21 #90 caps 09/20/22 12/27/22 12/26/22 Rx amitriptyline 25 mg tablet 25 mg PO DAILY #60 tabs 12/05/22 12/27/22 12/26/22 Rx gabapentin 300 mg capsule 300 mg PO Q8H #300 caps 12/05/22 12/27/22 12/27/22 Rx propranolol 20 mg tablet 20 mg PO BID #60 tabs 12/05/22 12/27/22 12/27/22 Rx dapagliflozin propanediol 10 mg 10 mg PO QAM #30 tabs 12/16/22 12/27/22 12/27/22 Rx tablet (Farxiga) glipizide 2.5 mg tablet, extended 2.5 mg PO DAILY #90 tabs 12/16/22 12/27/22 12/27/22 Rx release 24 hr Allergies Allergy/AdvReac Type Severity Reaction Status Date / Time Sulfa (Sulfonamide Allergy Unknown Unknown Verified 12/13/22 11:00 Antibiotics) NSAIDS (Non-Steroidal AdvReac Unknown Unknown Verified 12/13/22 11:00 Anti-Inflamma Current Medications Generic Name Dose Route Start Last Admin Trade Name Freq PRN Reason Stop Dose Admin Acetaminophen 500 mg 12/27/22 15:17 12/27/22 16:43 Acetaminophen 500 Mg Tablet PO 500 mg Q4H PRN Administration fever Gabapentin 300 mg 12/27/22 15:17 12/27/22 16:44 Gabapentin 300 Mg Capsule PO 300 mg Q8H DANIEL Administration Heparin Sodium (Porcine) 5,000 unit 12/27/22 15:17 12/27/22 16:44 Heparin 5,000 Unit/Ml Inj 1 Ml SUBCUT 5,000 unit Q12H DANIEL Administration PFSH Acute PFSH: Medical History Diabetes mellitus type 2 in obese Hesitancy of micturition History of deep vein thrombosis History of LA (myocardial infarction) Kidney transplant recipient 01/01/2016 Mixed hyperlipidemia Seasonal and perennial allergic rhinitis TIA (transient ischemic attack) Surgical History History of arthroscopy of right shoulder 1992 History of cholecystectomy 2006 History of coronary angioplasty with insertion of stent History of fusion of cervical spine 1978 and 2000 History of kidney transplant 01/01/2016 History of repair of aneurysm of abdominal aorta August 08, 2018 at [facility] 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 Multiple surgeries arms and thigh Family History Other Cancer Chronic kidney disease (CKD) Clotting disorder Dementia Diabetes Hypertension Stroke Social History Smoking and tobacco status: never smoked Second hand smoke exposure: No Smoking risk assessment/counseling performed?: No Alcohol intake: never Desire information about alcohol rehabilitation?: No Counseling given: No Substance/Drug Use: never Desire information about substance/drug rehabilitation?: No Counseling given: No Caregiver/support person: No Lives independently: Yes Household members: spouse Housing: House Marital status: Number of children: 2 service: No Current occupational status: retired Do you think of yourself as: Straight/Heterosexual Current gender identity: Male Vitals/I&O/Wt Last Vital Signs Temp 97.6 F 12/27/22 11:09 Pulse 60 12/27/22 17:00 Resp 16 12/27/22 14:15 BP 151/82 12/27/22 17:00 Pulse Ox 97 12/27/22 17:00 O2 Del Method Room Air 12/27/22 15:18 Weight last 48 hrs Weight 212 lb Physical Exam Narrative: GENERAL: Patient is alert, awake and oriented x3. [] NECK: No jugular vein distension. [] HEENT: No cyanosis. No icterus. No pallor. [] HEART: Regular S1 and S2. No murmur, rub or gallop. [] LUNGS: Clear to auscultate bilaterally. [] CENTRAL NERVOUS SYSTEM: Grossly nonfocal. [] EXTREMITIES: Lower extremities with no edema bilaterally. Data 12/28/22 03:51 12/28/22 03:51 A&P Assessment and plan (1) Angina pectoris, unstable: (2) Kidney transplant recipient: Plan Patient symptoms are worsening and are consistent with unstable angina. He has prior CAD history and also significant renal disease history. Given his typical symptoms, we will proceed with coronary angiogram with possible percutaneous coronary intervention. Risk of renal function worsening has been discussed with the patient. He understands that and wants to proceed. He may have access difficulty as well has bilateral's were used for AV fistulas in the past. Left side has graft. His transplanted kidney is on the right side. Risks associated with procedure discussed in detail. Continue aspirin. Trend troponins Order echocardiogram Thank you for involving us with care of this patient. We will continue to follow. Please call with questions. Consult Attestations Medical Necessity Statement: Care expected to cross 2 midnights. Coding Level of Care Code Acute Code for [facility] Diagnoses Angina pectoris, unstable I20.0 Kidney transplant recipient Z94.0
[2022-12-27] MEDS: tacrolimus 0.5 mg Capsule 1 MG PO (17:51)
[2022-12-27] MEDS: sodium chloride 0.9% 1,000 ML 75 ML IV (17:52)
[2022-12-27] MEDS: propranolol 20 mg Tablet PO (17:52)
--- NOTE | 2022-12-27 18:01 | ECG_ITS ---
[facility] Test Date: 2022-12-27 Pat Name: James Rae Department: Room: 105 Gender: Male Manager Voice: : 1950 Requested By: Jerry Salomon Order Number: [id number] Madeleine MD: Prince Messer M.D. Measurements Intervals [place] Rate: 66 P: 32 WA: 176 QRS: -47 QRSD: 85 T: 57 QT: 381 QTc: 402 Interpretive Statements SINUS RHYTHM LEFT AXIS DEVIATION [QRS AXIS < -30] MINIMAL VOLTAGE CRITERIA FOR LVH, CONSIDER NORMAL VARIANT [MEETS CRITERIA IN ONE OF: R(aVL), S(V1), R(V5), R(V5/V6)+S(V1)] POSSIBLE ANTERIOR MYOCARDIAL INFARCTION , OF INDETERMINATE AGE [30 ms Q WAVE IN V3/V4, OR R < 0.2 mV IN V4] Compared to ECG 12/27/2022 13:10:05 No significant changes Electronically Signed On 12-28-2022 8:06:58 CDT by Prince Messer M.D. [id number]
[2022-12-27 18:47] LABS: Troponin 5 6HR 15.31 ng/L (0-15); Troponin 5 6HR Delta 0.31 ng/L (0-12)
[2022-12-27 20:30] LABS: Glucose Point of Care 239 mg/dL (70-110)
[2022-12-27] MEDS: tamsulosin 0.4 mg Capsule PO (20:55)
[2022-12-27] MEDS: carvedilol 25 mg Tablet PO (20:55)
[2022-12-27] MEDS: magnesium oxide 400 mg tablet PO (20:55)
[2022-12-27] MEDS: finasteride 5 mg Tablet PO (20:55)
[2022-12-28] VITALS (13 sets, daily range): BP systolic 137–165; BP diastolic 75–91; PULSE 60–70; RESP 14–21; TEMP 36.6; O2SAT 92–97
--- NOTE | 2022-12-28 01:57 | PC.NURSE ---
NS IV fluids turned off per Dr written order.
[2022-12-28] MEDS: heparin 5,000 unit/mL INJ 1 mL 5000 UNIT SUBCUT (03:21)
[2022-12-28 05:06] LABS: Basophils # 0.1 10^3/uL (0.0-0.1); Basophils % 0.7 %; Eosinophils # 0.1 10^3/uL (0.0-0.8); Eosinophils % 1.5 %; Hematocrit 45.2 % (37-53); Lymphocytes # 2.3 10^3/uL (0.8-4.8); Lymphocytes % 25.8 %; Mean Corpuscular HGB Conc 32.7 g/dL (30-55); Mean Corpuscular Hemoglobin 30.1 pg (27-33); Mean Corpuscular Volume 91.9 fl (82-101); Mean Platelet Volume 10.3 fL (7.4-10.4); Monocytes % 11.2 %; Neutrophils # 5.29 10^3/uL (1.8-7.7); Neutrophils % 59.7 %; Nucleated Red Blood Cells % 0 %; Platelet Count 229 10^3/cmm (157-399); Red Blood Count 4.92 10^6/uL (3.85-5.65); Red Cell Distribution Width 14.1 % (12.1-15.1); White Blood Count 8.86 10^3/uL (3.29-11.43)
[2022-12-28 05:26] LABS: Anion Gap 15.6 (5-19); Blood Urea Nitrogen 29 mg/dL (8-23); Calcium 9.5 mg/dL (8.5-10.5); Carbon Dioxide 26 mmol/L (22-29); Chloride 105 mmol/L (98-107); Glomerular Filtration Rate 54.6 mL/min (90-130); Glucose 129 mg/dL (65-115); Magnesium 1.4 mg/dL (1.7-2.3); Osmolality Calculated 302 mOsm/kg (285-295); Phosphorus 4.3 mg/dL (2.5-4.5); Potassium 4.6 mmol/L (3.5-5.1); Sodium 142 mmol/L (136-145)
[2022-12-28] MEDS: gabapentin 300 mg Capsule PO ×3 (06:09→23:02)
[2022-12-28] MEDS: tacrolimus 0.5 mg Capsule 1 MG PO ×2 (06:09→17:34)
[2022-12-28] MEDS: aspirin 81 mg EC Tablet PO (06:09)
[2022-12-28] MEDS: sodium chloride 0.9% 1,000 ML 75 ML IV ×2 (06:10→17:35)
[2022-12-28 06:27] LABS: Glucose Point of Care 132 mg/dL (70-110)
--- NOTE | 2022-12-28 06:53 | XACV_ITS ---
Exam Room: [facility] Ht: 170 cm Wt: 96 kg BSA: 2.17 m2 Gender: Male : 1950 Any Known Allergies: Sulfa Exam Priority: Routine Procedure(s): Procedure Description: Diagnostic procedure Procedure Description: PCI procedure Procedure Description: Drug Eluting Coronary Stent Procedure Description: PTCA Procedure Description: Miscellaneous Procedure Description: ACT Procedure Description: Coronary Angiography Diagnostic Cath Status: Urgent Diagnostic Findings * Left Main has no significant disease. * Left Anterior Descending has mild luminal irregularities. * Right Coronary Artery is a large-caliber vessel with some mild to moderate luminal irregularities. No significant stenosis.. * Mid Circumflex: significant 80% stenosis, SHENA: 3 flow. * Coronary angiography shows right dominance. PCI Status: Urgent PCI Indication: Other Interventional Findings * Procedure detail: Patient had access limitation. We obtained access in right common femoral artery. Through micropuncture sheath, we performed hand-injection. Right external iliac artery gave rise to renal artery. We carefully advacnced the J wire and kept wire access across the iliac artery throughout the procedure. After diagnostic cath, we engaged left main artery with XB 3.0 guide catheter. IV heparin was administered to maintain anticoagulation. 0.014 run-through guidewire was used to cross the stenosis and was put in distal vessel. We then predilated left circumflex artery stenosis with 2.75 x 20 mm semicompliant balloon.We then tried advancing the stent however it could not be advanced because of significant curve at takeoff of left circumflex artery. We used a second run-through wire as krista wire. We were then able to advance a 2.75x22 [employer] and deploy it. At this time final angiogram was performed that showed excellent stent expansion, no residual stenosis and SHENA 3 flow. Guidewire and guide catheter were removed. Patient left catheter builder in a stable condition. * Mid Circumflex: 80% stenosis treated with a AB TREK 2.75X20 RX BALLOON, AB TREK 2.75X20 RX BALLOON, and MDT R ARNOLD 2.75X22 AURELIO. 0% residual stenosis, SHENA: 3 flow. Conclusions 1. Severe 2. mid left circumflex artery stenosis status post PCI with 1 stent.. 3. Mid Circumflex was treated with a Balloon, Balloon, and Drug Eluting Stent. Recommendations * Dual antiplatelet therapy with aspirin and Plavix for at least 1 year. * High intensity statin therapy. * Outpatient cardiology follow-up in 2 weeks. Interventional RX Recommendation: PCI w/o planned CABG Diagnostic RX Recommendation: PCI w/o planned CABG Anticoagulation: Heparin Pressures Phase:Rest AO : 174 / 72 ( 108 ) @ 11:27:00 AM 139 / 76 ( 103 ) @ 11:33:00 AM 110 / 70 ( 90 ) @ 11:37:00 AM Clinical Evaluation EBL: 5mL-10mL Procedural Details Procedure Consent Obtained. Pre-Procedure Time Out. Identified patient by full name and date of as verbalized by the patient/guarantor. Does the consent match the physician's order: Yes. Accurate & Complete Informed Consent: Yes. Inpatient/Outpatient History & Physical on Chart: Yes. If H&P is completed, is and addenduem needed: No. Visualize and Verify Site with Patient/Guarantor: N/A. Relevant Radiology Images available: Yes. The risks, benefits, and alternatives of sedation and/or procedure were discussed by physician. The patient agrees to continue. Procedure started. [facility] Clinical Fraility Score: 4: Vulnerable. 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 Chest Pain Symptom Assessment: Typical Angina Symptoms. Cardiovascular Instability: No. Correct patient, site and procedure confirmed by cath team. PERRLA. Strong, equal hand transcripter bilaterally. Lungs clear x 5 lobes. IV Site on Arrival: 20 gauge in the left anticubital. IV Fluids: 0.9% NaCl at KVO. 200 mL infused prior to catheter builder. Pre Procedural Pulses: bilateral dorsalis pedis was Doppled. Pre Procedural Pulses: bilateral posterior tibial was Doppled. Oxygen started at 2liters/min via nasal canula. bilateral groins was prepped with chloroprep then draped in the usual sterile fashion. Baseline sample Acquired. HR: 58 BPM. Physician notified. Patient's family unavailable. Equipment: 6F - Femoral. Cardiac Cath Pack. ACIST Manifold Kit Model BT 2000. Heparinized Saline (2 units/mL), 1000 mL bag. Kit, Micropuncture. Physician arrived. Physician scrubbed in. Immediate Pre-Procedure Time Out. Correct Patient: Yes; Correct Procedure: Yes; Correct Site: Yes; Correct Patient Position: Yes; Correct Supplies: Yes; Dried Flammable Prep: Yes; Blood Products Available: N/A;. Lidocaine 1% infiltrated to the right groin. Arterial access obtained with micropuncture set using ultrasound guidance. Hand injection of the right femoral artery performed through the microdilator. A 5 [place] JL4 catheter in over the exchange J wire. Unable to cannulate the LCA. Catheter removed over the exchange J wire. A 5 [place] JR4 catheter in over the exchange wire. Cineography of the RCA performed. Catheter removed over the exchange J wire. 6 citizen [place] XB 3 guide catheter was inserted over the exchange wire. Unable to cannulate the LCA. Guide catheter out. 6 citizen [place] XB 4 guide catheter was inserted over the wire. Multiple views taken of left coronary artery. Runthrough guidewire was advanced through the guide catheter to lesion in the mid Circ. Inflation number : 1 A AB TREK 2.75X20 RX BALLOON was prepped and advanced across the Mid CX , then inflated to 8 JASPAL for 0:18 seconds. Inflation number: 2 The AB TREK 2.75X20 RX BALLOON was reinflated across the Mid CX, to 8 JASPAL for 0:08 seconds. Balloon out. Arnold 2.75x30 AURELIO in, unable to cross. Removed intact. Guideliner in. [employer] 2.75x30 AURELIO in, unable to cross. Removed intact. Inflation number : 3 A AB TREK 2.75X20 RX BALLOON was prepped and advanced across the Mid CX , then inflated to 4 JASPAL for 0:06 seconds. Balloon out. Guideliner out. A 2nd Runthrough guidewire was advanced through the guide catheter to lesion in the mid Circ. Arnold 2.75x30 AURELIO in, unable to cross. Removed intact. 2nd Runthrough guidewire out. Inflation Number : 4 Aleida Marinelli ARNOLD 2.75X22 AURELIO -Lot Number# [id number] was prepped and advanced across the Mid CX. The stent was deployed at 12 JASPAL for 0:20 seconds.Exp 2023-08-12. 1st Runthrough guidewire out. ACT drawn. Results 375 seconds. Therapeutic limits - pre-heparin administration 90-150 seconds and monitoring heparin during a vascular procedure >250 seconds. Guide catheter out. Physician scrubbed out. A Suture was successful obtaining hemostatsis at the Right Femoral artery insertion site. Sheath(s) sutured into position with 2-0 silk and sterile 4x4's and Op-site applied over the site. No oozing or signs and symptoms of hematoma noted. Arterial sheath flushed and connected to tranducer and pressure bag with heparinized saline. Post Procedure: Pulses reassessed and unchanged. PERRLA. Strong, equal hand transcripter bilaterally. No VTE prophylaxis required. Total IV fluids: 100 mL. PCI Indication: CAD (without ischemic symptoms). Post-op diagnosis: PCI of the mid CX. Complications: none. Estimated blood loss: 5mL-10mL. Responsiveness - Normal response to verbal stimuli; alert and oriented, PERRLA. Airway - Unaffected, no intervention required; spontaneous ventilation. Circulation: W/N/L, pulses unchanged. Nausea/Vomiting: No. Procedure completed. Patient transferred by bed to CPRU. Vital chart was stopped. Access Site Site: Right Femoral artery Sheath Size: 6 Fr Hemostasis Method: Suture Hemostasis Success: Successful Procedure Medications Start: 10:15 AM Stop: 10:15 AM Medication: Versed Amount: 1 mg Route: I.V. Start: 10:16 AM Stop: 10:16 AM Medication: Fentanyl Amount: 50 mcg Route: I.V. Start: 10:20 AM Stop: 10:20 AM Medication: Fentanyl Amount: 50 mcg Route: I.V. Start: 10:36 AM Stop: 10:36 AM Medication: Heparin Amount: 8000 units Route: I.V. Start: 10:37 AM Stop: 10:37 AM Medication: Versed Amount: 1 mg Route: I.V. Start: 10:44 AM Stop: 10:44 AM Medication: Heparin Amount: 1000 units Route: I.V. Start: 10:56 AM Stop: 10:56 AM Medication: Plavix Amount: 600 mg Route: P.O. I, the attending physician, have reviewed and verified all procedure medications. Yes, all medications given per verbal order History/Risk Factors Hypertension: No Dyslipidemia: Yes Peripheral Arterial Disease (PAD): No Myocardial Infarction (NM): Yes Obesity: Yes Renal Disease: Yes Tobacco Use: Never Prior Interventions PCI: Yes CABG: No Valve Surgery: No Date of PCI: 04/13/2011 Report Signatures Finalized by Ron Banks MD on 01/01/2023 11:24 AM
[2022-12-28] MEDS: predniSONE 5 mg Tablet PO (08:48)
[2022-12-28] MEDS: aspirin 325 mg Tablet PO (08:48)
[2022-12-28] MEDS: magnesium oxide 400 mg tablet PO ×2 (08:48→21:11)
[2022-12-28] MEDS: carvedilol 25 mg Tablet PO ×2 (08:48→21:11)
[2022-12-28] MEDS: propranolol 20 mg Tablet PO ×2 (08:48→17:34)
[2022-12-28] MEDS: diphenhydrAMINE 50 mg Capsule PO (08:48)
--- NOTE | 2022-12-28 08:58 | P.PN_ITS ---
Subjective Subjective: Patient is going for angiogram today He is n.p.o. No active chest discomfort currently on room air Vitals/I&O/Wt Last Vital Signs Temp 97.8 F 12/28/22 03:32 Pulse 64 12/28/22 08:00 Resp 18 12/28/22 08:00 BP 165/84 12/28/22 03:32 Pulse Ox 95 12/28/22 08:00 O2 Del Method Room Air 12/28/22 08:00 12/27/22 12/28/22 12/28/22 22:59 06:59 14:59 Intake Total 1000 / 1000 Balance 1000 / 1000 Weight last 48 hrs Weight 96.162 kg Physical Exam Narrative: Patient is laying supine Orthopnea PND No edema Currently on room air Hypertensive No active chest pain GCS 15 Nonfocal neuro exam Pleasant and cooperative Data 12/28/22 03:51 12/28/22 03:51 A&P Assessment and plan (1) Angina pectoris, unstable: (2) Chronic migraine without aura, intractable, with status migrainosus: (3) Brachial plexopathy: (4) Myalgia, unspecified site: Plan Patient is going for angiogram, he is n.p.o. No active chest pain Hypertensive Continue IV fluids Continue steroids and immunosuppressants for renal transplant history We will start cardiac diet after his procedure Attestations Medical Necessity Statement*: Continue medical management Diagnoses Angina pectoris, unstable I20.0 Chronic migraine without aura, intractable, with status migrainosus G43.711 Brachial plexopathy G54.0 Myalgia, unspecified site M79.10
--- NOTE | 2022-12-28 10:07 | PM.PN ---
Subjective Subjective: Patient is doing well. no chest pain. He underwent successful revascularization of mid left circumflex artery stenosis with 1 stent. Vitals/I&O/Wt Last Vital Signs Temp 97.8 F 12/28/22 03:32 Pulse 64 12/28/22 08:00 Resp 18 12/28/22 08:00 BP 165/84 12/28/22 03:32 Pulse Ox 95 12/28/22 08:00 O2 Del Method Room Air 12/28/22 08:00 12/27/22 12/28/22 12/28/22 22:59 06:59 14:59 Intake Total 1000 / 1000 Balance 1000 / 1000 Weight last 48 hrs Weight 212 lb Physical Exam Narrative: GENERAL: Patient is alert, awake and oriented x3. [] NECK: No jugular vein distension. [] HEENT: No cyanosis. No icterus. No pallor. [] HEART: Regular S1 and S2. No murmur, rub or gallop. [] LUNGS: Clear to auscultate bilaterally. [] CENTRAL NERVOUS SYSTEM: Grossly nonfocal. [] EXTREMITIES: Lower extremities with no edema bilaterally. Data 12/28/22 03:51 12/28/22 03:51 A&P Assessment and plan (1) Angina pectoris, unstable: (2) Kidney transplant recipient: Plan Coronary angiogram and associated severe mid left circumflex artery stenosis that underwent successful revascularization with 1 stent. Continue dual antiplatelet therapy with aspirin and Plavix. ECHO is pending. Renal function monitoring. IV fluids overnight. If has worsening of renal function, will benefit from nephrology consult Thank you for involving us with care of this patient. We will continue to follow. Please call with questions. Attestations Medical Necessity Statement*: Care expected to cross 2 midnights. Coding Level of Care Code Acute Code for [facility] Diagnoses Angina pectoris, unstable I20.0 Kidney transplant recipient Z94.0
--- NOTE | 2022-12-28 10:07 | W.PM.OPSUD ---
Surgery/Procedure H&P Update DATE OF PROCEDURE: December 28, 2022 DATE H&P PERFORMED: 12/27/22 H&P UPDATE INFORMATION: I have reviewed H&P completed within last 30 days, I have examined patient prior to procedure and No changes to prior documentation PREOP DIAGNOSIS: Unstable angina PRIMARY INDICATION FOR PROCEDURE: Unstable angina PLANNED PROCEDURE: Left heart cath with possible percutaneous coronary intervention PATIENT REASSESSED PRIOR TO SEDATION, WITH NO CHANGE NOTED: Yes PHYSICAL EXAM: alert, oriented x 3, clear to auscultation bilaterally and regular rate & rhythm AIRWAY EVAL/ANESTHESIA PLAN: normal airway, ASA III, Local Anesthesia, Risks, benefits & alternatives of sedation and/or procedure discussed and Patient agrees to continue as planned ADDITIONAL INFORMATION: Moderate sedation
--- NOTE | 2022-12-28 11:34 | PC.NURSE ---
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 Sheath in place to patient's right groin connected to pressure bag. Dsg over sheath clean, dry, et intact. No drainage or hematoma noted. Vitals WDL. No c/o pain or discomfort. Will continue to monitor. 1130: Transfer orders received. Sheath in place to patient's right groin connected to pressure bag. Dsg over sheath clean, dry, et intact. No drainage or hematoma noted. Vitals WDL. No c/o pain or discomfort. Report give to ALONSO Guido. Patient transferred to CSU from CPRU via hospital bed. All belongings sent with patient.
[2022-12-28] MEDS: acetaminophen 500 mg Tablet PO (12:05)
[2022-12-28] MEDS: NON-FORMULARY MEDICATION (Mycophenolate Sodium 180 mg tablet,delayed release (DR/EC)) 540 EACH PO ×2 (12:11→21:12)
[2022-12-28 12:12] LABS: Glucose Point of Care 135 mg/dL (70-110)
[2022-12-28 16:16] LABS: Partial Thromboplastin Time 91.1 SECONDS (23.9-36.7)
[2022-12-28 17:28] LABS: Glucose Point of Care 125 mg/dL (70-110)
[2022-12-28 18:20] LABS: Partial Thromboplastin Time 35.7 SECONDS (23.9-36.7)
[2022-12-28] MEDS: fentaNYL 50 mcg/mL INJ 2mL IVP (19:29)
[2022-12-28] MEDS: tamsulosin 0.4 mg Capsule PO (21:11)
[2022-12-28] MEDS: finasteride 5 mg Tablet PO (21:11)
[2022-12-28 21:12] LABS: Glucose Point of Care 188 mg/dL (70-110)
--- NOTE | 2022-12-28 23:11 | PC.NURSE ---
Removed sheath per protocol at 1940, finished at 1999. Educated patient to stay still and importance of keeping leg still for 6 hours, patient verbalized understanding.
[2022-12-29] VITALS: BP 169/83; PULSE 64; RESP 29; TEMP 36.6; O2SAT 94
[2022-12-29 04:00] VITALS: BP 163/80; PULSE 64; RESP 17; TEMP 36.6; O2SAT 94
[2022-12-29] MEDS: acetaminophen 325 mg Tablet 650 MG PO (04:02)
[2022-12-29] MEDS: heparin 5,000 unit/mL INJ 1 mL 5000 UNIT SUBCUT (04:03)
[2022-12-29 04:25] LABS: Basophils # 0.1 10^3/uL (0.0-0.1); Basophils % 0.6 %; Eosinophils # 0.1 10^3/uL (0.0-0.8); Eosinophils % 0.6 %; Lymphocytes # 1.9 10^3/uL (0.8-4.8); Lymphocytes % 17.5 %; Mean Corpuscular HGB Conc 32.5 g/dL (30-55); Mean Corpuscular Hemoglobin 29.7 pg (27-33); Mean Corpuscular Volume 91.5 fl (82-101); Mean Platelet Volume 10.3 fL (7.4-10.4); Monocytes # 1.1 10^3/uL (0.2-0.9); Monocytes % 10.7 %; Neutrophils # 7.45 10^3/uL (1.8-7.7); Neutrophils % 69.8 %; Nucleated Red Blood Cells % 0 %; Platelet Count 232 10^3/cmm (157-399); Red Blood Count 4.81 10^6/uL (3.85-5.65); Red Cell Distribution Width 14.1 % (12.1-15.1); White Blood Count 10.67 10^3/uL (3.29-11.43)
[2022-12-29 04:48] LABS: Anion Gap 15.3 (5-19); Blood Urea Nitrogen 26 mg/dL (8-23); Calcium 9.4 mg/dL (8.5-10.5); Carbon Dioxide 23 mmol/L (22-29); Chloride 105 mmol/L (98-107); Glomerular Filtration Rate 73.9 mL/min (90-130); Glucose 131 mg/dL (65-115); Osmolality Calculated 295 mOsm/kg (285-295); Potassium 4.3 mmol/L (3.5-5.1); Sodium 139 mmol/L (136-145)
[2022-12-29 06:00] VITALS: PULSE 60
[2022-12-29 06:43] LABS: Glucose Point of Care 240 mg/dL (70-110)
[2022-12-29] MEDS: aspirin 81 mg EC Tablet PO (06:44)
[2022-12-29] MEDS: gabapentin 300 mg Capsule PO (06:44)
[2022-12-29] MEDS: tacrolimus 0.5 mg Capsule 1 MG PO (06:44)
[2022-12-29 07:24] VITALS: PULSE 68; RESP 16; O2SAT 95
--- NOTE | 2022-12-29 07:54 | P.PN_ITS ---
Subjective Subjective: Patient is doing well. Denies chest pain. Exercise is normal. Vitals/I&O/Wt Last Vital Signs Temp 97.9 F 12/29/22 04:00 Pulse 68 12/29/22 07:24 Resp 16 12/29/22 07:24 BP 163/80 12/29/22 04:00 Pulse Ox 95 12/29/22 07:24 O2 Del Method Room Air 12/29/22 07:24 12/28/22 12/29/22 12/29/22 22:59 06:59 14:59 Intake Total 1216.25 / 1216.25 200 / 1416.25 Output Total 675 / 675 Balance 541.25 / 541.25 200 / 741.25 Weight last 48 hrs Weight 212 lb Physical Exam Narrative: GENERAL: Patient is alert, awake and oriented x3. [] NECK: No jugular vein distension. [] HEENT: No cyanosis. No icterus. No pallor. [] HEART: Regular S1 and S2. No murmur, rub or gallop. [] LUNGS: Clear to auscultate bilaterally. [] CENTRAL NERVOUS SYSTEM: Grossly nonfocal. [] EXTREMITIES: Lower extremities with no edema bilaterally. Data 12/29/22 04:02 12/29/22 04:02 A&P Assessment and plan (1) Angina pectoris, unstable: (2) Kidney transplant recipient: Plan Patient is doing well. No complications. Continue dual antiplatelet therapy with aspirin and Plavix. Renal function is stable. Thank you for involving us with care of this patient. Patient is stable to be discharged from cardiology standpoint. Please call with questions. Attestations Medical Necessity Statement*: Care expected to cross 2 midnights. Coding Level of Care Code Acute Code for [facility] Fwd Diagnoses Angina pectoris, unstable I20.0 Kidney transplant recipient Z94.0
[2022-12-29 08:00] VITALS: BP 158/79; PULSE 89; RESP 20; TEMP 36.6; O2SAT 93
[2022-12-29] MEDS: insulin lispro 100 unit/1 mL SUBCUT (08:51)
[2022-12-29] MEDS: predniSONE 5 mg Tablet PO (08:51)
[2022-12-29] MEDS: magnesium oxide 400 mg tablet PO (08:51)
[2022-12-29] MEDS: carvedilol 25 mg Tablet PO (08:51)
[2022-12-29] MEDS: propranolol 20 mg Tablet PO (08:51)
[2022-12-29] MEDS: clopidogrel 75 mg Tablet PO (08:51)
[2022-12-29] MEDS: NON-FORMULARY MEDICATION (Mycophenolate Sodium 180 mg tablet,delayed release (DR/EC)) 540 EACH PO (08:51)
--- NOTE | 2022-12-29 09:40 | P.DS_ITS ---
Discharge Providers Date of Admission: 12/27/22 15:17 Date of Discharge: December 29, 2022 Attending Provider at Admission: Chanelle Romero MD Attending Provider at Discharge: Chanelle Romero MD Primary Care Provider: KAREN rOta Diagnoses at Discharge Discharge Diagnosis (1) Angina pectoris, unstable: Status: Acute (2) Kidney transplant recipient: Status: Chronic Permanent problem details: 01/01/2016 Reason for Visit Reason for Visit: chest pain, phys sent irreg hb Hospital Course Hospital Course 72-year-old male with history of established coronary artery disease with stents, kidney transplant on immunosuppressants, came in with typical unstable angina, patient went for coronary angiogram and got a stent in left circumflex which showed severe stenosis, his renal function did not worsen patient received fluids before and after angiogram, patient has an appointment with field service supervisor on 01/02, he is being discharged on aspirin and Plavix, he gets his medications through his mail pharmacy I will give 30 tablets of Plavix to our pharmacy so he does not miss any of dual antiplatelet therapy regimen. He is being discharged with stable hemodynamics, creatinine at the time of discharge 1.0 Physical Exam Narrative: Awake and alert S1, S2 GCS 15 Abdomen soft Nonfocal neuro exam Currently on room air Discharge Data Studies Completed and Pending Completed Studies During Hospitalization Category Date Time Status XR chest 1V portable [id number] Stat Exams 12/27/22 11:58 Completed CV. 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 Routine Exams 12/28/22 06:53 Taken Laboratory Results WBC 10.67 10^3/uL (3.29-11.43) 12/29/22 04:02 RBC 4.81 10^6/uL (3.85-5.65) 12/29/22 04:02 Hgb 14.30 g/dL (11.27-16.99) 12/29/22 04:02 Hct 44.0 % (37-53) 12/29/22 04:02 MCV 91.5 fl (82-101) 12/29/22 04:02 MCH 29.7 pg (27-33) 12/29/22 04:02 MCHC 32.5 g/dL (30-55) 12/29/22 04:02 RDW 14.1 % (12.1-15.1) 12/29/22 04:02 Plt Count 232 10^3/cmm (157-399) 12/29/22 04:02 MPV 10.3 fL (7.4-10.4) 12/29/22 04:02 Neut % (Auto) 69.8 % 12/29/22 04:02 Lymph % (Auto) 17.5 % 12/29/22 04:02 Union % (Auto) 10.7 % 12/29/22 04:02 Eos % (Auto) 0.6 % 12/29/22 04:02 Baso % (Auto) 0.6 % 12/29/22 04:02 Neut # (Auto) 7.45 10^3/uL (1.8-7.7) 12/29/22 04:02 Lymph # (Auto) 1.9 10^3/uL (0.8-4.8) 12/29/22 04:02 Union # (Auto) 1.1 10^3/uL (0.2-0.9) H 12/29/22 04:02 Eos # (Auto) 0.1 10^3/uL (0.0-0.8) 12/29/22 04:02 Baso # (Auto) 0.1 10^3/uL (0.0-0.1) 12/29/22 04:02 Nucleated RBC % (auto) 0 % 12/29/22 04:02 Nucleated RBCs # 0.0 /100WBC 12/29/22 04:02 PT 12.50 SECONDS (12.1-14.9) 12/27/22 11:08 INR 0.91 (0.8-1.2) 12/27/22 11:08 APTT 35.7 SECONDS (23.9-36.7) D 12/28/22 17:37 Sodium 139 mmol/L (136-145) 12/29/22 04:02 Potassium 4.3 mmol/L (3.5-5.1) 12/29/22 04:02 Chloride 105 mmol/L (98-107) 12/29/22 04:02 Carbon Dioxide 23 mmol/L (22-29) 12/29/22 04:02 Anion Gap 15.3 (5-19) 12/29/22 04:02 BUN 26 mg/dL (8-23) H 12/29/22 04:02 Creatinine 1.0 mg/dL (0.7-1.2) 12/29/22 04:02 GFR Calculation 73.9 mL/min (90-130) L 12/29/22 04:02 Glucose 131 mg/dL (65-115) H 12/29/22 04:02 POC Glucose 240 mg/dL (70-110) H 12/29/22 06:33 Calculated Osmolality 295 mOsm/kg (285-295) 12/29/22 04:02 Calcium 9.4 mg/dL (8.5-10.5) 12/29/22 04:02 Phosphorus 4.3 mg/dL (2.5-4.5) 12/28/22 03:51 Magnesium 1.4 mg/dL (1.7-2.3) L 12/28/22 03:51 Total Bilirubin 0.5 mg/dL (0.15-1.2) 12/27/22 11:08 AST 12 U/L (0-40) 12/27/22 11:08 ALT 14 U/L (0-41) 12/27/22 11:08 Alkaline Phosphatase 88 U/L (40-130) 12/27/22 11:08 Troponin T Baseline 15 ng/L (0-15) 12/27/22 11:08 Troponin T 120 Minute 14.8 ng/L (0-15) 12/27/22 13:08 Delta Troponin T -0.2 ABS# (0-10) L 12/27/22 13:08 Troponin T Hi Sens 6Hr 15.31 ng/L (0-15) H 12/27/22 17:57 Troponin T Hi Sens 6Hr Delta 0.31 ng/L (0-12) 12/27/22 17:57 Total Protein 7.4 g/dL (6.6-8.7) 12/27/22 11:08 Albumin 4.2 g/dL (3.5-5.2) 12/27/22 11:08 Globulin 3.2 g/dL (1.3-4.6) 12/27/22 11:08 Lipase 24 U/L (13-60) 12/27/22 11:08 Vitals Last Vital Signs Temp 97.8 F 12/29/22 08:00 Pulse 89 12/29/22 08:00 Resp 20 H 12/29/22 08:00 BP 158/79 12/29/22 08:00 Pulse Ox 93 12/29/22 08:00 O2 Del Method Room Air 12/29/22 08:00 Discharge Plan Discharge Patient Disposition: Home Condition: Stable Prescriptions: New clopidogrel 75 mg Tablet 75 mg PO DAILY Qty: 90 3RF clopidogrel [Plavix] 75 mg tablet 75 mg PO DAILY Qty: 30 0RF Continued magnesium oxide 400 mg magnesium tablet 400 mg PO BID@ prednisone 5 mg tablet 5 mg PO DAILY@ (DME) pen needle, diabetic 32 gauge x needle See Rx Instructions .ROUTE .MEDSUPPLY Qty: 50 5RF Rx Instructions: 1 daily Farxiga 10 mg tablet 10 mg PO QAM Qty: 30 2RF glipizide 2.5 mg tablet extended release 24hr 2.5 mg PO DAILY Qty: 90 0RF tamsulosin 0.4 mg capsule 0.4 mg PO DAILY@ Qty: 90 1RF rosuvastatin [Crestor] 5 mg tablet 5 mg PO DAILY Qty: 90 1RF lisinopril 2.5 mg tablet 2.5 mg PO DAILY@ Qty: 90 1RF finasteride 5 mg tablet 5 mg PO DAILY@ Qty: 90 1RF carvedilol 25 mg tablet 25 mg PO BID@ Qty: 180 1RF propranolol 20 mg tablet 20 mg PO BID Qty: 60 5RF amitriptyline 25 mg tablet 25 mg PO DAILY Qty: 60 3RF Rx Instructions: Take at bedtime gabapentin 300 mg capsule 300 mg PO Q8H Qty: 300 3RF aspirin 81 mg Tablet,Delayed Release (Dr/Ec) 81 mg PO QAM Qty: 90 0RF tacrolimus 1 mg capsule 1 mg PO Q12H Rx Instructions: @09:00,21:00 cholecalciferol (vitamin D3) [Vitamin D3] 125 mcg (5,000 unit) Tablet 5,000 unit PO .TWICE A WEEK cetirizine [Zyrtec] 10 mg tablet 10 mg PO DAILY@ mycophenolate sodium 180 mg tablet,delayed release (DR/EC) 540 mg PO BID@ Discharge Orders: Discharge Order (Routine); Ordered 12/29/22 Ordered By: Chanelle Romero Referrals: Juarez Abdi FNP-C [Primary Care Provider] - 01/02/23 9:00 am Ron Banks M.D [Physician] - (Your Dr. Banks follow up appointment will be scheduled during your Imelda Rojo appointment. Thank you.) Imelda Rojo FNP [Nurse Practitioner] - 01/10/23 10:15 am Patient Instructions: Coronary Angioplasty (DC), Opioid Safety, Post Angiogram Home Care Instructions Activity Restrictions/Additional Instructions: We have sent Plavix to our pharmacy so you do not miss any of the dosages of Plavix and aspirin rest of the refills you can get through your pharmacy in mail Discharge Attestations Time Spent in Discharge Care*: greater than 30 min Quality Metrics Clinical Quality Measures [ No reported AMI, CVA or VTE this stay] Coding Level of Care Code Acute Code for Chg Fwd Diagnoses Angina pectoris, unstable I20.0 Kidney transplant recipient Z94.0
[2022-12-29 10:16] VITALS: BP 158/79; PULSE 89; RESP 20; TEMP 36.6; O2SAT 93
--- NOTE | 2022-12-29 11:26 | PC.NURSE ---
Discharge Note Patient discharged to [home] via [w/c to POV] accompanied by [spouse]. Discharge instructions reviewed with patient and/or business office representative. Mobile pharmacy medications and/or prescriptions provided. Belongings/home medications returned.
== END 2022-12-29 10:40 | disposition home or self-care (01) ==
LOC: ER 12:23 → CSU 15:01
PROVIDERS: Emergency Medicine; Internal Medicine; Admitting Provider Internal Medicine; Emergency Provider Emergency Medicine; PCP Nurse Practitioner; Visit Provider Internal Medicine
DX: I25.110 Atherosclerotic heart disease of native coronary artery with unstable angina pectoris (principal); Z94.0 Kidney transplant status; Z95.5 Presence of coronary angioplasty implant and graft; I10 Essential (primary) hypertension; M79.10 Myalgia, unspecified site; G54.0 Brachial plexus disorders; G43.711 Chronic migraine without aura, intractable, with status migrainosus; Z86.718 Personal history of other venous thrombosis and embolism; Z79.82 Long term (current) use of aspirin; I25.2 Old myocardial infarction; I49.8 Other specified cardiac arrhythmias; E66.9 Obesity, unspecified; Z68.33 Body mass index [BMI] 33.0-33.9, adult; E11.69 Type 2 diabetes mellitus with other specified complication; Z79.52 Long term (current) use of systemic steroids; E78.2 Mixed hyperlipidemia; Z86.73 Personal history of transient ischemic attack (TIA), and cerebral infarction without residual deficits; Z79.620 Long term (current) use of immunosuppressive biologic
CPT/HCPCS: 36415; 36416; 71045; 80048; 80053; 82962; 83690; 83735; 84100; 84484; 85025; 85347; 85610; 85730; 93005; 93306; 93454; 96361; 96372; 96374; 96376; 99152; 99153; 99285; C1725; C1769; C1874; C1887; C1894; C9600; G0378; J1644; J1815; J2250; J3010; J3490; J7030; J7507; J7512; Q0163; Q9967

== ENCOUNTER → 2023-01-30 09:48 | Outpatient (BNVA) | payer MEDICARE, SELFPAY | PROVIDERS: PCP Nurse Practitioner; Visit Provider Nurse Practitioner | DX: E11.69 Type 2 diabetes mellitus with other specified complication (principal); E66.9 Obesity, unspecified; Z23 Encounter for immunization | CPT/HCPCS: 81000 ==

== ENCOUNTER → 2023-02-12 12:59 | Outpatient (BNVA) | payer MEDICARE, SELFPAY | PROVIDERS: PCP Nurse Practitioner; Visit Provider Specialist | DX: G43.711 Chronic migraine without aura, intractable, with status migrainosus (principal); G25.0 Essential tremor | CPT/HCPCS: 99214 ==

== ENCOUNTER → 2023-03-29 11:49 | Outpatient (BNVA) | payer MEDICARE, SELFPAY | PROVIDERS: PCP Nurse Practitioner; Visit Provider Nurse Practitioner | DX: E11.9 Type 2 diabetes mellitus without complications (principal) | CPT/HCPCS: 80053; 80061; 81000; 82607; 83036 ==

== ENCOUNTER → 2023-04-03 10:01 | Outpatient (BNVA) | payer MEDICARE, SELFPAY | PROVIDERS: PCP Nurse Practitioner; Visit Provider Registered Nurse | DX: Z94.0 Kidney transplant status (principal) | CPT/HCPCS: 80197; 82310; 82570; 83735; 83970; 84156; 84550 ==

== ENCOUNTER → 2023-06-05 08:43 | Outpatient (BNVA) | payer MEDICARE, SELFPAY | PROVIDERS: PCP Nurse Practitioner; Visit Provider Nurse Practitioner | DX: Z94.0 Kidney transplant status (principal) | CPT/HCPCS: 80053; 80061; 80197; 81000; 82310; 82570; 83735; 83970; 84156; 84550; 85025 ==

== ENCOUNTER → 2023-08-14 10:06 | Outpatient (BNVA) | payer MEDICARE, SELFPAY | PROVIDERS: PCP Nurse Practitioner; Visit Provider Nurse Practitioner | DX: E11.9 Type 2 diabetes mellitus without complications (principal); Z94.0 Kidney transplant status; N18.9 Chronic kidney disease, unspecified | CPT/HCPCS: 80053; 80061; 80197; 81000; 82310; 83036; 83735; 83970; 84550; 85025 ==

== ENCOUNTER → 2023-08-23 10:11 | Outpatient (BNVA) | payer MEDICARE, SELFPAY | PROVIDERS: PCP Nurse Practitioner; Visit Provider Nurse Practitioner Family | DX: I25.10 Atherosclerotic heart disease of native coronary artery without angina pectoris (principal); Z87.891 Personal history of nicotine dependence; I10 Essential (primary) hypertension | CPT/HCPCS: 99213 ==

== ENCOUNTER → 2023-10-31 08:27 | Outpatient (BNVA) | payer MEDICARE, SELFPAY | PROVIDERS: PCP Nurse Practitioner; Visit Provider Nurse Practitioner | DX: Z94.0 Kidney transplant status (principal); E11.69 Type 2 diabetes mellitus with other specified complication; E66.9 Obesity, unspecified; E11.9 Type 2 diabetes mellitus without complications; N18.9 Chronic kidney disease, unspecified; E55.9 Vitamin D deficiency, unspecified | CPT/HCPCS: 80053; 80061; 80197; 81003; 82306; 82310; 83036; 83735; 83970; 84550; 85025 ==

== ENCOUNTER → 2024-01-24 09:50 | Outpatient (BNVA) | payer MEDICARE, SELFPAY | PROVIDERS: PCP Nurse Practitioner; Visit Provider Nurse Practitioner | DX: E11.69 Type 2 diabetes mellitus with other specified complication (principal); Z94.0 Kidney transplant status; E55.9 Vitamin D deficiency, unspecified; Z12.5 Encounter for screening for malignant neoplasm of prostate | CPT/HCPCS: 80053; 80061; 81000; 82306; 82310; 82550; 82570; 83036; 83735; 83970; 84100; 84156; 85025; G0103 ==

== ENCOUNTER → 2024-02-01 08:11 | Outpatient (BNVA) | payer MEDICARE, SELFPAY | PROVIDERS: PCP Nurse Practitioner; Visit Provider Nurse Practitioner | DX: Z94.0 Kidney transplant status (principal) | CPT/HCPCS: 80197 ==

== ENCOUNTER → 2024-02-28 15:13 | Outpatient (BNVA) | payer MEDICARE, SELFPAY | PROVIDERS: PCP Nurse Practitioner; Visit Provider Internal Medicine | DX: I25.119 Atherosclerotic heart disease of native coronary artery with unspecified angina pectoris (principal); E78.2 Mixed hyperlipidemia; Z94.0 Kidney transplant status; Z87.891 Personal history of nicotine dependence | CPT/HCPCS: 99214 ==

== ENCOUNTER 2024-03-12 10:32 | Outpatient (CLI) | payer MEDICARE, SELFPAY ==
[2024-03-12 11:12] VITALS: BMI 32.4
--- NOTE | 2024-03-12 11:12 | ECG_ITS ---
[facility] Test Date: 2024-03-12 Pat Name: James Rae Department: Room: Gender: Male [employer] Monitor: : 1950 Requested By: Ron Banks Order Number: [id number] Madeleine MD: Ron Banks M.D. Interpretive Statements LEXISCAN SESTAMIBI STRESS TEST Procedure: At the baseline, the blood pressure was 130/75 mmHg with a heart rate of 75 bpm. The electrocardiogram showed normal sinus rhythm, normal axis with normal ST and T's. The Lexiscan was infused over a period of 20 seconds. A total of 0.4 mg of Lexiscan was infused. The stress phase was continued for a total of 5 minutes. Heart rate was at the end of stress phase was 79 bpm and a blood pressure of 148/72 mmHg. The EKG at the peak infusion revealed normal sinus rhythm with no significant ST-T wave changes. Sestamibi was injected 20 seconds after the Lexiscan infusion. Blood pressure at the end of recovery phase was 141/74 mmHg with a heart rate of 78 bpm. Conclusion: 1. Normal EKG response to Lexiscan infusion 2. No Lexiscan induced chest pain or cardiac arrhythmia. 3. Normal blood pressure and heart rate response. 4. Sestamibi/sestamibi perfusion scan pending; see separate report. Electronically Signed On 03-12-2024 18:48:32 ECOLOGIST TECHNICIAN by Ron Banks M.D. [email or web address]
--- NOTE | 2024-03-12 11:13 | NMCV_ITS ---
NM pranay perf SPECT r/s* [id number] James Rae Age: 73 Gender: M : 1950 Exam Date: 03/12/2024 11:13 Ordering Phys: Ron Banks M.D ([email or web address]) Technologist: CHRISTINE Gastelum Exam Location: [facility] Indications: cp STRESS TEST [facility] IMAGE PROTOCOL Rest/Stress 1 Lexiscan Day Radiopharmaceutical Dose (mCi) Administration Site Administered by Rest: Tc-99m 11 IV CHRISTINE Gastelum Sestamibi Stress:Tc-99m 32.5 IV CHRISTINE Hannon Sestamibi Rest: 12-Mar-2024 60 Discovery 630 Stress: 12-Mar-2024 30 Discovery 630 0.4mg Lexiscan. Images obtained in supine and prone position. SPECT RESULTS Technical Quality: Good Raw Data Analysis: Normal Image Corrections: No attenuation or motion correction applied Summed Stress Score: 0 Summed Rest Score: 0 Summed Difference Score: 0 PERFUSION FINDINGS SPECT images demonstrate homogeneous tracer distribution throughout the myocardium. FUNCTIONAL RESULTS (calculated via Gated SPECT) Stress Image LV EF (%): 70 Stress EDV (mL):106 TID: 0.95 Stress ESV (mL):32 FUNCTIONAL FINDINGS: There is normal left ventricular systolic function. IMPRESSIONS 1. Normal myocardial perfusion imaging with no evidence of ischemia. 2. LV systolic function is normal Ron Banks MD (Electronically Signed) Final Date: 13 March 2024 10:31 S
[2024-03-12] MEDS: regadenoson 0.4 Mg/5 ml Syringe IVP (12:13)
[2024-03-12 12:57] VITALS: BP 155/64; PULSE 63
== END 2024-03-12 10:33 | disposition home or self-care (01) ==
LOC: CDL 10:35
PROVIDERS: PCP Nurse Practitioner; Visit Provider Internal Medicine
DX: R07.9 Chest pain, unspecified (principal); R06.02 Shortness of breath
CPT/HCPCS: 36415; 78452; 93017; 96374; A9500; J2785

== ENCOUNTER → 2024-04-24 09:08 | Outpatient (BNVA) | payer MEDICARE, SELFPAY | PROVIDERS: PCP Nurse Practitioner; Visit Provider Nurse Practitioner | DX: Z94.0 Kidney transplant status (principal); E11.9 Type 2 diabetes mellitus without complications | CPT/HCPCS: 80053; 80061; 80197; 81003; 82310; 83036; 83735; 83970; 84550; 85025 ==

== ENCOUNTER → 2024-07-17 09:56 | Outpatient (BNVA) | payer MEDICARE, SELFPAY | PROVIDERS: PCP Nurse Practitioner; Visit Provider Nurse Practitioner | DX: I10 Essential (primary) hypertension (principal); E11.69 Type 2 diabetes mellitus with other specified complication; E66.9 Obesity, unspecified; E55.9 Vitamin D deficiency, unspecified; Z94.0 Kidney transplant status; N18.9 Chronic kidney disease, unspecified | CPT/HCPCS: 80053; 80061; 80197; 81003; 82306; 82310; 83036; 83735; 83970; 84443; 84550; 85025 ==

== ENCOUNTER → 2024-08-28 13:26 | Outpatient (BNVA) | payer MEDICARE, SELFPAY | PROVIDERS: PCP Nurse Practitioner; Visit Provider Internal Medicine | DX: I25.10 Atherosclerotic heart disease of native coronary artery without angina pectoris (principal); E78.2 Mixed hyperlipidemia; Z94.0 Kidney transplant status; Z79.01 Long term (current) use of anticoagulants; Z79.82 Long term (current) use of aspirin; Z86.73 Personal history of transient ischemic attack (TIA), and cerebral infarction without residual deficits; Z87.891 Personal history of nicotine dependence; Z95.5 Presence of coronary angioplasty implant and graft; I25.2 Old myocardial infarction | CPT/HCPCS: 99214 ==

== ENCOUNTER → 2024-09-25 14:09 | Outpatient (BNVA) | payer MEDICARE, SELFPAY | PROVIDERS: PCP Nurse Practitioner; Visit Provider Student in an Organized Health Care Education/Training Program | DX: K43.9 Ventral hernia without obstruction or gangrene (principal) | CPT/HCPCS: 99203 ==

== ENCOUNTER → 2024-11-05 09:25 | Outpatient (BNVA) | payer MEDICARE, SELFPAY | PROVIDERS: PCP Nurse Practitioner; Visit Provider Nurse Practitioner | DX: Z94.0 Kidney transplant status (principal); E66.9 Obesity, unspecified; E11.69 Type 2 diabetes mellitus with other specified complication | CPT/HCPCS: 80053; 80061; 80069; 80197; 81003; 82310; 83036; 83735; 83970; 85025 ==

== ENCOUNTER → 2024-11-20 13:03 | Outpatient (BNVA) | payer MEDICARE, SELFPAY | PROVIDERS: PCP Nurse Practitioner; Visit Provider Nurse Practitioner Family | DX: L40.0 Psoriasis vulgaris (principal); L82.1 Other seborrheic keratosis; L81.4 Other melanin hyperpigmentation; L57.8 Other skin changes due to chronic exposure to nonionizing radiation; Z94.0 Kidney transplant status; D48.5 Neoplasm of uncertain behavior of skin | CPT/HCPCS: 69100; 99204 ==

== ENCOUNTER 2024-11-28 08:48 | Outpatient (CLI) | payer MEDICARE, SELFPAY ==
--- NOTE | 2024-11-28 08:53 | CTR_ITS ---
PROCEDURE INFORMATION: Exam: CT Abdomen And Pelvis Without And With Contrast Exam date and time: 11/28/2024 9:15 AM Age: 73 years old Clinical indication: Condition or disease; Hernia; Complications not specified; Ventral; Prior surgery; Surgery date: 6+ months; Surgery type: Right renal transplant, splenectomy, gb; Rlq pain with mass/swelling x 1 month, ; additional info: Ventral hernia/renal transplant PT TECHNIQUE: Imaging protocol: Computed tomography of the abdomen and pelvis without and with contrast. 3D rendering (Not supervised by radiologist): MIP and/or 3D reconstructed images were created by the technologist. Radiation optimization: All CT scans at this facility use at least one of these dose optimization techniques: automated exposure control; mA and/or kV adjustment per patient size (includes targeted exams where dose is matched to clinical indication); or iterative reconstruction. Contrast material: OMNI 350; Contrast volume: 100 ml; Contrast route: INTRAVENOUS (IV); COMPARISON: CT abdomen pelvis wo con [id number] 09/13/2021 2:48 AM RADIATION DOSE METRICS: Total DLP (mGy-cm): 1475.23 FINDINGS: Liver: Normal appearance of the liver. Gallbladder and biliary ducts: Status post cholecystectomy. Pancreas: No ductal dilation. Spleen: Status post splenectomy with similar splenosis. Adrenal glands: Unremarkable. Kidneys and ureters: Atrophic bilateral kidneys with benign simple renal cysts. Right lower quadrant kidney transplant. No hydronephrosis. Stomach and bowel: Colonic diverticulosis without diverticulitis. No obstruction. Wall thickening of the ascending colon. Duodenal diverticulum. Calcification in the cecum as visualized. Appendix: No evidence of appendicitis. Intraperitoneal space: No free air. No significant fluid collection. Vasculature: Partially visualized left superficial femoral artery stent and bypass graft. Incidentally noted left-sided IVC. Lymph nodes: No enlarged lymph nodes. Urinary bladder: Unremarkable as visualized. Reproductive: Unremarkable as visualized. Bones/joints: Unremarkable. No acute fracture. Soft tissues: Unremarkable. CT/CT abdomen pelvis wo/w [id number] IMPRESSION: 1. Wall thickening of the ascending colon. Findings may be infectious or inflammatory in etiology but correlation with colonoscopy is recommended to exclude underlying mass. PTLD is possible. 2. Right lower quadrant kidney transplant is unremarkable. COMMENTS: Consistent with the [employer]'s Incidental Findings Committee white paper (J Am Alondra Radiol 2018): Any incidental renal lesion less than 1 cm or classified as too small to characterize, or any incidental cystic renal lesion characterized as simple-appearing, is likely benign. No follow-up imaging is recommended for these lesions per consensus recommendations based on imaging criteria.
[2024-11-28] MEDS: iohexol 350 mg/mL 500 mL Btl (per mL) IV (09:04)
== END 2024-11-28 08:49 | disposition home or self-care (01) ==
LOC: RAD 08:49
PROVIDERS: PCP Nurse Practitioner; Visit Provider Registered Nurse
DX: K43.9 Ventral hernia without obstruction or gangrene (principal); K43.2 Incisional hernia without obstruction or gangrene; Z94.0 Kidney transplant status
CPT/HCPCS: 74178

== ENCOUNTER → 2024-12-18 12:49 | Outpatient (BNVA) | payer MEDICARE, SELFPAY | PROVIDERS: PCP Nurse Practitioner; Visit Provider Dermatology | DX: D48.5 Neoplasm of uncertain behavior of skin (principal) | CPT/HCPCS: 15260; 17311 ==

== ENCOUNTER → 2024-12-25 11:39 | Outpatient (BNVA) | payer MEDICARE, SELFPAY | PROVIDERS: PCP Nurse Practitioner; Visit Provider Nurse Practitioner | DX: R05.9 Cough, unspecified (principal) | CPT/HCPCS: 87400; 87426 ==

== ENCOUNTER → 2025-01-09 09:18 | Outpatient (BNVA) | payer MEDICARE, SELFPAY | PROVIDERS: PCP Nurse Practitioner; Visit Provider Dermatology | DX: Z48.817 Encounter for surgical aftercare following surgery on the skin and subcutaneous tissue (principal) | CPT/HCPCS: 99212 ==

== ENCOUNTER → 2025-02-26 14:13 | Outpatient (BNVA) | payer MEDICARE, SELFPAY | PROVIDERS: PCP Nurse Practitioner; Visit Provider Internal Medicine | DX: I25.10 Atherosclerotic heart disease of native coronary artery without angina pectoris (principal); I10 Essential (primary) hypertension; Z87.891 Personal history of nicotine dependence | CPT/HCPCS: 99214 ==